=== PATIENT | male | born 1945 | race Caucasian/White ===

== ENCOUNTER → 2018-01-30 09:44 | Outpatient (CLI) | payer MEDICARE, OTHER, SELFPAY ==
[2018-01-30 12:25] LABS: Absolute Lymphocyte Count 1.18 X10^3/ul (0.83-4.51); Absolute Neutrophil Count 2.6 X10^3/uL (2.0-7.7); Eosinophil# 0.05 X10^3/uL; Eosinophils% 1.2 % (0-5); Hematocrit 40.6 % (40-54); Lymphocyte # 1.18 X10^3/ul (4.0); Lymphocyte % 27.9 % (19-41); Mean Corp Hgb Conc 34.5 g/gl (32-36); Mean Corpuscular Hgb 32.6 pg (27.0-32.0); Mean Corpuscular Volume 94.4 fL (80-94); Mean Platelet Vol. 9.8 fl (6.2-12.0); Monocyte# 0.42 X10^3/uL; Monocyte% 9.9 % (0-10); Neutrophil # 2.57 X10^3/uL (2.7-7.7); Neutrophil % 60.8 % (47-70); Platelet Count 179 K/mm3 (150-450); RBC Distribution Width SD 40.4 fl (35.1-43.9); White Blood Count 4.2 K/mm3 (4.4-11.0)
[2018-01-30 12:38] LABS: POSITIVE COUNT NO; POSITIVE DIFFERENTIAL NO; POSITIVE MORPHOLOGY NO
[2018-01-30 12:55] LABS: ALB/GLOB Ratio 1.1 RATIO (0.9-2.4); AST(SGOT) 26 U/L (15-37); Alanine Aminotransfer ALT/SGPT 46 U/L (16-61); Albumin, Serum 3.8 g/dL (3.2-5.0); Alkaline Phosphatase 52 U/L (45-117); Anion Gap 7 (5-15); BUN 22 mg/dL (7-18); BUN/Creat Ratio 22.2 RATIO (10-20); Calcium,Total 8.5 mg/dL (8.5-10.1); Chloride 104 mmol/L (98-107); Creatinine, Serum 0.99 mg/dL (0.70-1.30); EST Glomerular Filtration Rate 79 mL/min (>60); Est Glom Filt Rate - Afr Amer 96 mL/min (>60); Globulin 3.5 g/dL (2.2-4.2); Glucose 189 mg/dL (74-106); Potassium 3.8 mmol/L (3.5-5.1); Protein, Total 7.3 g/dL (6.4-8.2); Sodium Level 138 mmol/L (136-145); Thyroid Stim Hormone (TSH) 1.98 uIU/mL (0.358-3.74)
== END ==
PROVIDERS: PCP Family Medicine; Visit Provider Family Medicine
DX: E11.65 Type 2 diabetes mellitus with hyperglycemia (principal); E78.5 Hyperlipidemia, unspecified
CPT/HCPCS: 36415; 80053; 84443; 85025

== ENCOUNTER → 2019-02-12 11:19 | Outpatient (CLI) | payer MEDICARE, OTHER, SELFPAY ==
[2019-02-12 15:59] LABS: Absolute Lymphocyte Count 1.23 X10^3/uL (0.83-4.51); Absolute Neutrophil Count 2.7 X10^3/uL (2.0-7.7); Basophil# 0.01 X10^3/uL; Basophil% 0.2 % (0-1); Eosinophil# 0.04 X10^3/uL; Eosinophils% 0.9 % (0-5); Hematocrit 42.5 % (40-54); Lymphocyte # 1.23 X10^3/ul (4.0); Lymphocyte % 27.5 % (19-41); Mean Corp Hgb Conc 32.9 g/dL (32-36); Mean Corpuscular Hgb 31.9 pg (27.0-32.0); Mean Corpuscular Volume 96.8 fL (80-94); Mean Platelet Vol. 9.9 fl (6.2-12.0); Monocyte# 0.43 X10^3/uL; Monocyte% 9.6 % (0-10); NRBC Flagged by Analyzer 0 % (0-5); Neutrophil # 2.74 X10^3/uL (2.7-7.7); Neutrophil % 61.4 % (47-70); Platelet Count 187 K/mm3 (150-450); RBC Distribution Width CV 12.1 % (11.6-14.6); Red Blood Count 4.39 M/mm3 (4.6-6.2); White Blood Count 4.5 K/mm3 (4.4-11.0)
[2019-02-12 16:24] LABS: ALB/GLOB Ratio 1.2 RATIO (0.9-2.4); AST(SGOT) 30 U/L (15-37); Alanine Aminotransfer ALT/SGPT 53 U/L (16-61); Alkaline Phosphatase 45 U/L (45-117); Anion Gap 12 (5-15); BUN 24 mg/dL (7-18); Calcium,Total 8.9 mg/dL (8.5-10.1); Chloride 104 mmol/L (98-107); EST Glomerular Filtration Rate 78 mL/min (>60); Est Glom Filt Rate - Afr Amer 95 mL/min (>60); Globulin 3.2 g/dL (2.2-4.2); Glucose 111 mg/dL (74-106); Potassium 4.2 mmol/L (3.5-5.1); Protein, Total 7.2 g/dL (6.4-8.2); Sodium Level 141 mmol/L (136-145); Thyroid Stim Hormone (TSH) 1.66 uIU/mL (0.358-3.74)
== END ==
PROVIDERS: Family Provider Family Medicine; PCP Family Medicine; Visit Provider Family Medicine
DX: E11.9 Type 2 diabetes mellitus without complications (principal); I10 Essential (primary) hypertension; E78.5 Hyperlipidemia, unspecified
CPT/HCPCS: 36415; 80053; 84443; 85025

== ENCOUNTER 2019-04-07 13:00 | Observation (INO) | payer MEDICARE, OTHER, SELFPAY ==
[2019-04-07] VITALS (13 sets, daily range): BP systolic 92–120; BP diastolic 60–100; PULSE 56–169; RESP 12–160; TEMP 35.7–37.1; O2SAT 93–100; BMI 33.3; BMI 33.4; BMI 34.4
--- NOTE | 2019-04-07 13:24 | EKG12_ITS ---
Test Reason : REPEAT Blood Pressure : / mmHG Vent. Rate : 071 BPM Atrial Rate : 071 BPM P-R Int : 210 ms QRS Dur : 104 ms QT Int : 400 ms P-R-T Axes : 034 -24 031 degrees QTc Int : 434 ms Sinus rhythm with 1st degree A-V block Incomplete right bundle branch block Borderline ECG Confirmed by ALICIA HINES, DANIEL ([id number]), city editor SATINDER SHAH ([id number]) on 04/09/2019 1:43:16 PM Referred By: Margot Rasmussen Confirmed By:CARLOS VARGAS MD
--- NOTE | 2019-04-07 13:27 | ECHOD_ITS ---
Reason For Study: Arrhythmia Procedure This was a 2D Doppler, Color Flow transthoracic echocardiogram. Exam performed portable in ED. Left Ventricle Mild concentric left ventricular hypertrophy. The estimated ejection fraction is 75 %. No regional wall motion abnormalities noted. Right Ventricle Normal size and thickness. Normal systolic function. Atria The left atrium is severely enlarged. Normal right atrium. Normal atrial septum. Mitral Valve The mitral valve is structurally normal. No prolapse or stenosis seen. Tricuspid Valve Trivial tricuspid valve insufficiency. Right ventricular systolic pressure estimated to be 26 mmHg. Aortic Valve Normal aortic valve. Trisinus/trileaflet aortic valve. Pulmonic Valve Normal pulmonic valve. Great Vessels Normal aortic root. Normal arch. Normal inferior vena cava. Inferior vena cava collapse with sniff. Pericardium/Pleural No pericardial effusion. MMode/2D Measurements & Calculations LVIDd: 2.8 cm IVSd: 1.4 cm Ao root diam: 3.9 cm LVIDs: 1.5 cm LVPWd: 1.4 cm RVDd: 2.8 cm FS: 45.9 % LAV(MOD-bp): 76.5 ml LA A4 area: 26.6 cm2 LA dimension(2D): 4.0 cm LAV(MOD-bp) Indexed: 31.5 ml/m2 LAV(MOD-sp2): 68.3 ml LAV(MOD-sp4): 84.5 ml RA A4 area: 17.2 cm2 Doppler Measurements & Calculations MV E max jeff: 87.8 cm/sec Ao V2 max: 180.4 cm/sec LV V1 max: 120.5 cm/sec Ao max P.0 mmHg LV V1 max P.8 mmHg PA V2 max: 114.0 cm/sec TR max jeff: 228.7 cm/sec TR max P.9 mmHg Interpretation Summary Mild concentric left ventricular hypertrophy. The estimated ejection fraction is 75 %. The left atrium is severely enlarged. Trivial tricuspid valve insufficiency. Right ventricular systolic pressure estimated to be 26 mmHg. Pt appears to have a baseline 31 mm Hg LVOT gradient at rest which worsens to 38 mm Hg with Valsalve. Pt appears to be in atrial fibrillation. Results called to Dr Melgar at 1440. There is no comparison study available. Ordering Physician: Thai Moore Referring Physician: Bob Bolton Performed By: Adriane Farley RDCS
[2019-04-07] MEDS: Aspirin 81 MG TAB.CHEW 324 MG PO (13:28)
--- NOTE | 2019-04-07 13:33 | RAD_ITS ---
STUDY: X-RAY CHEST REASON FOR EXAM: Male, 74 years old. Chest pain. TECHNIQUE: Single AP portable view of the chest. COMPARISON: Comparison is made with prior study dated January 23, 2013. FINDINGS: EKG electrodes are seen. Mild increased markings at the left lung base suggestive of linear atelectasis and/or scarring. There is no demonstrated pleural abnormality. There is borderline cardiomegaly. Normal mediastinum and renuka. Normal visualized pulmonary arteries. There is atherosclerotic tortuosity of the aortic arch and descending thoracic aorta. There are diffuse degenerative changes of the visualized thoracic spine. Healed bilateral rib fractures more prominent on the left side. There is no demonstrated abnormality of the visualized soft tissue structures of the upper abdomen. RAD/Chest 1 View (Portable) IMPRESSION: Mild degree of increased markings at the left lung base suggestive linear atelectasis and/or scarring. Electronically Signed: Momo Ramirez, at 14:06 EDT , Service support ,
[2019-04-07 13:44] LABS: Absolute Lymphocyte Count 0.93 X10^3/uL (0.83-4.51); Absolute Neutrophil Count 5.3 X10^3/uL (2.0-7.7); Basophil# 0.01 X10^3/uL; Basophil% 0.1 % (0-1); Eosinophil# 0.03 X10^3/uL; Eosinophils% 0.4 % (0-5); Hematocrit 42.3 % (40-54); Hemoglobin 14.3 g/dL (13.0-16.5); Lymphocyte # 0.93 X10^3/ul (4.0); Lymphocyte % 13.7 % (19-41); Mean Corp Hgb Conc 33.8 g/dL (32-36); Mean Corpuscular Hgb 32.6 pg (27.0-32.0); Mean Corpuscular Volume 96.6 fL (80-94); Mean Platelet Vol. 8.9 fl (6.2-12.0); Monocyte# 0.57 X10^3/uL; Monocyte% 8.4 % (0-10); NRBC Flagged by Analyzer 0 % (0-5); Neutrophil # 5.25 X10^3/uL (2.7-7.7); Neutrophil % 77.1 % (47-70); Platelet Count 175 K/mm3 (150-450); RBC Distribution Width CV 11.9 % (11.6-14.6); RBC Distribution Width SD 42.3 fl (35.1-43.9); Red Blood Count 4.38 M/mm3 (4.6-6.2); White Blood Count 6.8 K/mm3 (4.4-11.0)
[2019-04-07 13:52] LABS: International Normalized Ratio 1.8; Prothrombin Time (Protime)PT. 20.3 SECONDS (11.7-14.9)
[2019-04-07 14:01] LABS: Anion Gap 7 (5-15); BUN 27 mg/dL (7-18); BUN/Creat Ratio 21.8 RATIO (10-20); Calcium,Total 8.7 mg/dL (8.5-10.1); Chloride 104 mmol/L (98-107); Creatinine, Serum 1.24 mg/dL (0.70-1.30); EST Glomerular Filtration Rate 61 mL/min (>60); Est Glom Filt Rate - Afr Amer 74 mL/min (>60); Estimated Creatinine Clearance 62.61 ml/min; Glucose 219 mg/dL (74-106); Potassium 4.2 mmol/L (3.5-5.1); Sodium Level 138 mmol/L (136-145)
[2019-04-07] MEDS: 0.9% Normal Saline 1,000 ML 150 ML IV (14:25)
[2019-04-07] MEDS: dilTIAZem 25 MG/5 ML Vial 10 MG IV BOLUS (14:26)
--- NOTE | 2019-04-07 14:37 | NURSING ---
Pt BP 78/68 P: 160. Placed in Trendelenburg, fluids started per order. Cardizem 5 mg given. Held the other [address] Rasmussen. Converted to sinus rhythm BP: 104/66 P: 78 SpO2: 97% on 2 L of oxygen.
--- NOTE | 2019-04-07 14:40 | EKG12_ITS ---
Test Reason : CP Blood Pressure : / mmHG Vent. Rate : 163 BPM Atrial Rate : 078 BPM P-R Int : 000 ms QRS Dur : 110 ms QT Int : 294 ms P-R-T Axes : 000 -36 056 degrees QTc Int : 484 ms Supraventricular tachycardia Left axis deviation Incomplete right bundle branch block Abnormal ECG Confirmed by ALICIA HINES, DANIEL ([id number]), manager editorial SATINDER SHAH ([id number]) on 04/09/2019 1:43:42 PM Referred By: Margot Rasmussen Confirmed By:CARLOS VARGAS MD
--- NOTE | 2019-04-07 14:45 | HP.PCM_ITS ---
Problem List (1) Atrial flutter with rapid ventricular response Status: Acute (2) Chest pain Status: Acute Qualifiers: Chest pain type: unspecified Qualified Code(s): R07.9 - Chest pain, unspecified (3) Hyperlipidemia Status: Chronic Qualifiers: Hyperlipidemia type: unspecified Qualified Code(s): E78.5 - Hyperlipidemia, unspecified (4) Diabetes mellitus, type II Status: Chronic Qualifiers: Diabetes mellitus penitentiary insulin use: without penitentiary use Diabetes mellitus complication status: with other specified complication Qualified Code(s): E11.69 - Type 2 diabetes mellitus with other specified complication (5) Obesity (BMI 30.0-34.9) Status: Chronic (6) History of DVT (deep vein thrombosis) Status: Chronic History of Present Illness Date of Admission: 04/07/19 Chief Complaint: Chest pain, lightheadedness, dizziness The patient is a 74 y/o M w/ PMHx: Obesity, Diabetes mellitus type II, HLD, 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 Borderline ASHA who presents to the [facility] ED on 04/07/19 with history of onset substernal chest pressure without radiation, described as 5 out of 10 initially in severity with associated mild dyspnea headedness and dizziness as well as nausea without emesis without any radiation while working on his lawn, approximately 3 hours prior to ED presentation with improvement upon ED evaluation 2-3 out of 10. Upon ED presentation patient with notable tachycardia suspected to be proximal atrial flutter with rate of 160. In the ED patient administered Cardizem 5 mg with initial intention for 10 mg IV x1 however following 5 mg administration patient spontaneously converted. In the ED work-up included T 96.2, heart rate initially 169 with improvement to 66 following some spontaneous conversion, BP 100/60 although he transiently did drop to systolic of 70s while in atrial flutter, currently 104/66, respiratory rate 18, 100% on room air, CBC with WBC 6.8, hemoglobin 14.3, platelet 175 without market shift, INR 1.8, BMP before glucose 219, troponin 0.024, chest x- ray with mild degree of increased markings left lung base suggestive of atelectasis versus scarring, echocardiogram with mild concentric LVH, EF 75%, severely enlarged LA, trivial TBI, RVSP 26 mmHg, baseline 31 mmHg L thought gradient at rest, worsening to 38 mmHg with Valsalva, rhythm atrial fibrillation at that time. In the ED patient ministered aspirin 324 mill grams p.o. x1, normal saline as well as 5 mg IV bolus of Cardizem x1. 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 Psychiatric History: No pertinent psych hx Lives: Alone Smoking Status: Never smoker Tobacco Use: Non-smoker Alcohol: Occasional Drugs: None - *Family History Maternal History Items: Heart Disease Paternal History Items: Heart Disease Review of Systems Constitutional: Reports: Malaise, Weakness, Fatigue. Denies: Chills, Fever, Weight Change HEENT: Denies: Head Aches, Sinus Congestion, Sinus Drainage Cardiovascular: Reports: Chest Pain, Chest Pressure, Light Headedness. Denies: Chest Tightness, Orthopnea, Palpitations, Syncope Respiratory: Denies: Cough, Shortness of breath at rest, Sputum production Gastrointestinal: Reports: Nausea, Vomiting. Denies: Abdominal Pain Genitourinary: Denies: Dysuria Musculoskeletal: Reports: Joint Pain. Denies: Joint Tenderness Skin: Denies: Rash, Wounds Neurological: Denies: Numbness, Tingling, Focal weakness Psychiatric: Denies: Anxiety, Depression, Homicidal Ideations, Suicidal Ideations Hematologic/ Lymphatic: Reports: Easy Bruising, Easy Bleeding VTE Information - Inpt Only VTE Present on Admission: No VTE Mechan Device Prophylaxis: SCD's VTE Pharm Prophylaxis ordered?: Yes Patient Problems: Active and Suspected Problems Atrial flutter with rapid ventricular response (Acute) Chest pain (Acute) Subjective: Initially upon evaluation in Trendelenburg secondary to hypotension, clinically improved with during examination spontaneous conversion to sinus rhythm. Objective: Physical Examination: General: awake, alert, oriented x 3 and cooperative, laying in the ED bed, notes chest discomfort has lessened to 2-3 out of 10. Skin: normal color, turgor, no icterus, cyanosis. HEENT: AT/NC, EOMI, PERRLA, MMM, no carotid bruits or JVD noted. Lungs: CTA bilaterally, moderate effort, mild decrease BL bases, no rales, ronc hi or wheezing. Heart: Clinically spontaneously converted, currently regular rate and rhythm; no gallop, rub audible. Abdomen: soft, obese, NTTP, ND, normal BS, no HSM. Extremities: no cyanosis, clubbing, or edema. Neurological: patient awake, alert, oriented x 3; cognitive function intact; pupils equally reactive to light and accomodation; cranial nerves II-XII grossly normal, moving all 4 extremities, no focal deficits, strength moderately to severely global decrease secondary to acute presentation and complaints, but improving given conversion. Psychiatric: affect appears fatigued, no acute evidence of depressive or anxiety feelings. - Physical Exam Vital Signs Temp Pulse Resp BP Pulse Ox 96.2 F L 66 30 H 104/66 93 04/07/19 13:01 04/07/19 14:32 04/07/19 14:32 04/07/19 14:32 04/07/19 14:32 Oxygen Flow Rate (L/min) 2 Oxygen Delivery Method Nasal Cannula Weight: 260 lb Body Mass Index (BMI) 33.3 Laboratory Tests Past 24 Hrs 04/07/19 04/07/19 04/07/19 13:36 13:36 13:36 WBC 6.8 RBC 4.38 L Hgb 14.3 Hct 42.3 MCV 96.6 H MCH 32.6 H MCHC 33.8 RDW Std Deviation 42.3 RDW Coeff of Aditya 11.9 Plt Count 175 MPV 8.9 Immature Gran % (Auto) 0.300 Neut % (Auto) 77.1 H Lymph % (Auto) 13.7 L [place] % (Auto) 8.4 Eos % (Auto) 0.4 Baso % (Auto) 0.1 Absolute Neuts (auto) 5.3 Absolute Lymphs (auto) 0.93 Nucleated RBC % 0 PT 20.3 H INR 1.8 Sodium 138 Potassium 4.2 Chloride 104 Carbon Dioxide 27.0 Anion Gap 7 BUN 27 H Creatinine 1.24 Estim Creat Clear Calc 62.61 Est GFR (MDRD) Af Amer 74 Est GFR (MDRD) Non-Af 61 BUN/Creatinine Ratio 21.8 H Glucose 219 H Calcium 8.7 Troponin I 0.024 Assessment/Plan All Active Problems Atrial flutter with rapid ventricular response (Acute) Chest pain (Acute) The patient is a 74 y/o M w/ PMHx: Obesity, Diabetes mellitus type II, HLD, 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 Borderline ASHA who presents to the [facility] ED on 04/07/19 with history of onset substernal chest pressure without radiation, described as 5 out of 10 initially in severity with associated mild dyspnea headedness and dizziness as well as nausea without emesis without any radiation while working on his lawn, approximately 3 hours prior to ED presentation with improvement upon ED evaluation 2-3 out of 10. 1. New onset, Paroxsymal atrial flutter: EKG in ED w/ atrial flutter w/ RVR. Patient administered Cardizem 5 mg IV x1 in ED spontaneous conversion. Will admit to PCU, maintain on telemetry, obtain cardiac enzyme serial set, obtain magnesium level, echo already obtained with mild concentric LVH, EF 75%, severely enlarged LA, trivial TBI, RVSP 26 mmHg, baseline 31 mmHg L thought gradient at rest, worsening to 38 mmHg with Valsalva, rhythm atrial fibrillation at that time, obtain TSH level. We will increase regimen dosing to achieve therapeutic INR. Will continue on cardizem oral regimen per discussion with Dr. Mendez. As noted we will plan to pursue walking stress echocardiogram in a.m. Upon discharge will refer to Dr. Mendez for follow-up. 2. Chest Pain: ED w troponin 0.024, chest x-ray with mild degree of increased markings left lung base suggestive of atelectasis versus scarring, echocardiogram with mild concentric LVH, EF 75%, severely enlarged LA, trivial TBI, RVSP 26 mmHg, baseline 31 mmHg L thought gradient at rest, worsening to 38 mmHg with Valsalva, rhythm atrial fibrillation at that time. Will place on a monitored bed to assure no acute myocardial infarction with serial cardiac enzymes and EKGs. Per discussion with Dr. Mendez will pursue a.m. walking stress echocardiogram. ASA, NG, morphine. 3. Diabetes mellitus type II: Hold oral home regimen, ADA diet, accu checks w/ ISS, nutrition consulted for education and teaching. 4. Obesity: Weight loss and lifestyle changes encouraged, nutrition consulted. 5. History DVT: Noted history of DVT x3 on chronic Coumadin therapy, admission INR 1.8, subtherapeutic, will give increased dose now and increase to 4 mg daily regimen especially given acute presentation. 6. Hyperlipidemia: Continue home statin regimen. AM FLP. 7. DVT prophylaxis: SCDs, Coumadin with INR trending as noted. Code Visit OBSV E&M: 15119 Initial observation care L3
--- NOTE | 2019-04-07 14:51 | ED.VISSUMM ---
- ER Visit Summary Date of Service: 04/07/19 Chief Complaint: [Chest pain] History of Present Illness: The patient is a 74 M [presents to the emergency department chest pain that started while he was working in the yard. Patient states symptoms started about 2 hours ago. Patient describes a pressure in the center of his chest. Patient rates the pain currently as a 5 out of 10. He denies any nausea or vomiting or diaphoresis. He denies any shortness of breath. Patient has history of hypercholesterolemia as well as history of DVT and is currently on Coumadin. She denies recent travel or surgery. Patient has not had any history of cardiac dysrhythmias. Patient is never had a heart attack. Patient states his last heart catheterization was about 6 or 7 years ago and it was negative.] Physical Examination: [HEENT-PERRLA, EOMI. Cranial nerves II through XII grossly intact. TMs clear. Mucous membranes moist. No adenopathy. Cardiovascular-regular and tachycardic with heart rate in the 160s. No murmurs auscultated. Lungs-clear to auscultation, chest wall stable without crepitus or subcu emphysema Abdomen-normoactive bowel sounds, soft, nontender, no rebound or rigidity, no peritoneal signs. Extremities-intact ?4, normal range of motion, normal pulses, atraumatic] Test Results: [EKG obtained showed a supraventricular tachycardia with a ventricular rate of 163 bpm which I suspect is likely a flutter. Patient had nonspecific ST changes noted. CBC with differential 6.8, hemoglobin 14, hematocrit 42, platelets 175. Chemistries unremarkable. Troponin was 0.024. INR was 1.8. Chest x-ray showed linear atelectasis in the bases otherwise nothing acute. 2D echo obtained showed left atrial enlargement and a hyperdynamic heart with an ejection fraction of 75%.] Emergency Department Course and Treatment: [Initially patient was given aspirin. I discussed case with Dr. Mendez who is on for cardiology. He recommended the echo and 10 mg of Cardizem IV. Upon patient received 5 mg of Cardizem he converted back to normal sinus rhythm. Since chest discomfort seemed to improve with that conversion back to sinus.] Treatment Plan: [Admit] Disposition: [Admit] Impression: [Chest pain Atrial fibrillation with rapid ventricular response] This note was generated with Dragon dictation software. It may contain incorrect words, spelling, and punctuation that were not noted in review of the chart prior to signing ED Disposition - Plan for ED Patient: Referrals: Bob Bolton MD [Primary Care Provider] -
--- NOTE | 2019-04-07 14:55 | NURSING ---
PCU OBS WHITE CP, AFIB RVR
--- NOTE | 2019-04-07 15:18 | EKG12_ITS ---
Test Reason : Blood Pressure : / mmHG Vent. Rate : 062 BPM Atrial Rate : 062 BPM P-R Int : 204 ms QRS Dur : 114 ms QT Int : 418 ms P-R-T Axes : 024 -32 010 degrees QTc Int : 424 ms Normal sinus rhythm Left axis deviation Incomplete right bundle branch block Abnormal ECG Confirmed by JONO HINES, THOR ([id number]), online content editor JACOB STATON ([id number]) on 04/09/2019 2:22:59 PM Referred By: Margot Rasmussen Confirmed By:THOR DE LA CRUZ MD
[2019-04-07 15:36] LABS: Magnesium 1.8 mg/dL (1.6-2.6)
[2019-04-07 17:51] LABS: Bedside Glucose 121 mg/dL (70-110)
[2019-04-07] MEDS: Insulin Lispro 100 UNIT/ML INSULN.PEN SC (21:29)
[2019-04-07] MEDS: Atorvastatin Calcium 20 MG Tablet PO (21:30)
[2019-04-07] MEDS: Famotidine 20 MG Tablet PO (21:30)
[2019-04-07 21:50] LABS: Bedside Glucose 150 mg/dL (70-110)
[2019-04-07] MEDS: 0.9% Normal Saline 1,000 ML 100 ML IV (22:53)
[2019-04-08] VITALS (7 sets, daily range): BP systolic 105–124; BP diastolic 63–72; PULSE 46–73; RESP 16–18; TEMP 36.5–36.8; O2SAT 95–97
--- NOTE | 2019-04-08 03:21 | PCM.PN.BLA ---
Progress Note Patient noted to have steadily rising troponin. Discussed with Dr. Mendez. Recommend to get treadmill stress echo previously ordered.
[2019-04-08 05:12] LABS: Absolute Lymphocyte Count 1.75 X10^3/uL (0.83-4.51); Basophil# 0.01 X10^3/uL; Basophil% 0.2 % (0-1); Eosinophil# 0.07 X10^3/uL; Eosinophils% 1.3 % (0-5); Hematocrit 37.5 % (40-54); Hemoglobin 12.7 g/dL (13.0-16.5); Lymphocyte # 1.75 X10^3/ul (4.0); Lymphocyte % 32.1 % (19-41); Mean Corp Hgb Conc 33.9 g/dL (32-36); Mean Corpuscular Hgb 32.5 pg (27.0-32.0); Mean Corpuscular Volume 95.9 fL (80-94); Mean Platelet Vol. 8.9 fl (6.2-12.0); Monocyte# 0.58 X10^3/uL; Monocyte% 10.6 % (0-10); NRBC Flagged by Analyzer 0 % (0-5); Neutrophil # 3.02 X10^3/uL (2.7-7.7); Neutrophil % 55.4 % (47-70); Platelet Count 162 K/mm3 (150-450); RBC Distribution Width CV 12.1 % (11.6-14.6); RBC Distribution Width SD 42.3 fl (35.1-43.9); Red Blood Count 3.91 M/mm3 (4.6-6.2); White Blood Count 5.5 K/mm3 (4.4-11.0)
[2019-04-08 05:32] LABS: Anion Gap 7 (5-15); BUN 20 mg/dL (7-18); Calcium,Total 7.8 mg/dL (8.5-10.1); Chloride 110 mmol/L (98-107); Cholesterol 114 mg/dL (200); EST Glomerular Filtration Rate 101 mL/min (>60); Est Glom Filt Rate - Afr Amer 122 mL/min (>60); Estimated Creatinine Clearance 97.04 ml/min; Glucose 124 mg/dL (74-106); High Density Lipoprotein 34 mg/dL; Potassium 3.9 mmol/L (3.5-5.1); Sodium Level 142 mmol/L (136-145); Triglycerides 70 mg/dL; Very Low Density Lipoprotein 14 mg/dL (5-40)
[2019-04-08 05:34] LABS: Prothrombin Time (Protime)PT. 22.9 SECONDS (11.7-14.9)
--- NOTE | 2019-04-08 05:55 | EKG12_ITS ---
Test Reason : AM EKG Blood Pressure : / mmHG Vent. Rate : 052 BPM Atrial Rate : 052 BPM P-R Int : 212 ms QRS Dur : 108 ms QT Int : 472 ms P-R-T Axes : 041 -30 051 degrees QTc Int : 438 ms Sinus bradycardia with 1st degree A-V block Left axis deviation Abnormal ECG Confirmed by JONO HINES, THOR ([id number]), supervising film or videotape editor JACOB STATON ([id number]) on 04/09/2019 2:22:39 PM Referred By: Margot Rasmussen Confirmed By:THOR DE LA CRUZ MD
--- NOTE | 2019-04-08 05:55 | STEWCON_ITS ---
Reason For Study: Atrial Fibrillation Chest Pain Stress Results Protocol: Lizandro Protocol Maximum Predicted HR: 148 bpm Target HR: 126 bpm % Maximum Predicted HR: 92 % DurationHeart Rate Stage (mm:ss) (bpm) BP Comment Baseline 65 130/72No Chest Pain; Diluted Definity 2 ML Given Lizandro Protocol Stage I 3:00 88 132/74No Chest Pain Lizandro Protocol Stage II 3:00 109 150/68No Chest Pain; Mild Dyspnea Lizandro Protocol Stage III 2:30 136 164/72No Chest Pain; Moderate Dyspnea Recovery 80 138/64No Chest Pain Stress Duration: 8:30 mm:ss Maximum Stress HR: 136 bpm METS: 10 Baseline Echocardiogram Findings The estimated ejection fraction is 65 %. Stress Echo Wall motion Data Resting WM Intermediate WM Stress WM Resting Wall Motion Wall Motion Stress No regional wall motion No regional wall motion abnormalities noted. abnormalities noted. EKG Data The baseline ECG displays normal sinus rhythm. The patient exercised according to the regular Lizandro protocol for a total duration of 8:30. The maximum heart rate attained was 137 beats per minute. This was 92% of maximum predicted heart rate. The patient exercised into stage 3 of the Lizandro protocol. During stress, there were no ST or T wave changes noted to suggest ischemia. No clinical angina was noted. Interpretation Summary The estimated ejection fraction is 65 %. Normal, adequate, treadmill echocardiogram. Negative for ischemia by EKG and echocardiographic criteria. No anginal symptoms noted. Rare PVCs noted. Appropriate blood pressure response to exercise. Average exercise capacity for age. Final LVEF is 75%. Test terminated due to leg discomfort. Decreased sensitivity due to poor echo windows requiring Definity agent. No complications. Normal, adequate, treadmill echocardiogram. The study was technically difficult. Contrast injection was performed. Ordering Physician: Margot Rasmussen Referring Physician: Heladio Mendez Performed By: Hermila Claudio, SUZETTE, RVT
[2019-04-08] MEDS: Aspirin 81 MG TAB.CHEW PO (06:18)
[2019-04-08 06:35] LABS: Bedside Glucose 137 mg/dL (70-110)
--- NOTE | 2019-04-08 09:09 | CON.PCM_ITS ---
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 He reportedly had a catheterization 6 years ago in [place], and reportedly had nonobstructive coronary disease. He did not require stents or bypass surgery. He is maintained on simvastatin since that time. Patient was in normal health up until yesterday [place], and developed palpitations, shortness of breath, and midsternal chest pain and a generalized feeling of unwellness. Patient sat down to recuperates, and when it did not improve he came to [facility] ER. In the emergency room he was found to be in atrial flutter with 2-1 conduction at a rate of around 160 bpm. A stat echocardiogram was obtained in the ER which showed a hyperdynamic LV function with an EF around 75% and mild left atrial enlargement. IV Cardizem was ordered, and as it was infusing he converted back to normal sinus rhythm and has remained in that since that time. His baseline EKG after SVT showed normal sinus rhythm, no acute changes, no previous myocardial infarction. Patient's initial troponin was negative but then increased to 1.0. As he had had no previous chest pain or angina prior to his SVT, we proceeded with a treadmill stress echocardiogram which was negative for inducible ischemia at a decent workload. His blood pressure response to exercise was normal. Patient has never had a CVA or TIA in the past. [] Past Medical History Allergies/Adverse Reactions: Allergies No Known Allergies Allergy (Verified 04/07/19 13:05) Home Medications: Ambulatory Orders Medication Instructions Recorded Aspirin 1 tab PO DAILY 04/07/19 Glimepiride 4 mg PO BID 04/07/19 Metformin HCl 1,000 mg PO BID 04/07/19 Multivit-Min/FA/Lycopen/Lutein 0.5 tab PO BID 04/07/19 [Centrum Silver Men Tablet] Ranitidine HCl 150 mg PO BID 04/07/19 Simvastatin 40 mg PO DAILY 04/07/19 Warfarin Sodium 3 mg PO DAILY 04/07/19 Past Medical History (Chronic Problems): Chronic Problems Hyperlipidemia (Chronic) Diabetes mellitus, type II (Chronic) Obesity (BMI 30.0-34.9) (Chronic) Low back pain (Chronic) 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 Psychiatric History: No pertinent psych hx - *Family History Maternal History Items: Heart Disease Paternal History Items: Heart Disease Lives: Alone Smoking Status: Former smoker Tobacco Use: Non-smoker Alcohol: Occasional Drugs: None Review of Systems - Review of Systems General: Denies: Fever, Night Sweats, Fatigue Cardiovascular: Denies: Chest Discomfort, Shortness of Breath, Orthopnea, PND, Peripheral Edema, Palpitations, Lightheadedness, Dizziness, Near Syncope, Syncope Respiratory: Denies: Cough, Sputum Production, Hemoptysis Gastrointestinal: Denies: Hematemesis, Hematochezia, Melena Genitourinary: Denies: Dysuria, Hematuria Skin: Denies: Rash Subjectve: Patient laying in bed, no acute distress. Objective: Vital Signs Temp Pulse Resp BP Pulse Ox 97.7 F L 54 L 16 105/63 95 04/08/19 03:15 04/08/19 07:17 04/08/19 03:15 04/08/19 03:15 04/08/19 07:42 Oxygen Flow Rate (L/min) 2 Oxygen Delivery Method Room Air Weight: 269 lb Body Mass Index (BMI) 34.4 Intake and Output for Last 24 Hours 04/06/19 04/07/19 04/08/19 23:59 23:59 23:59 Intake Total 1730.0 / 1730.0 922.33 / 922.33 Balance 1730.0 / 1730.0 922.33 / 922.33 General: Awake, Alert, Oriented x 3 HEENT: PERRL, EOMI, Sclera Non Icteric Neck: Supple, Good ROM, No Lymph Node Enlargement Lungs: Clear to auscultation Cardiovascular: Regular Rhythm, Normal S1, Normal S2, No Murmurs, No Rubs, No Gallops Vascular: No Carotid Bruits, Normal Femoral Pulses, Normal Radial Pulses, Normal Dorsalis Pedal Pulse, Normal Posterior Tibial Pulses Abdomen: Bowel Sounds Present, Soft, Non Tender, No HSM, No Organomegaly Extremities: No Cyanosis, No Clubbing, No edema Neurological: No Focal Motor or Sensory Deficit 04/07/19 13:36: WBC 6.8, RBC 4.38 L, Hgb 14.3, Hct 42.3, MCV 96.6 H, MCH 32.6 H, MCHC 33.8, Plt Count 175, MPV 8.9, Immature Gran % (Auto) 0.300, Neut % (Auto) 77.1 H, Lymph % (Auto) 13.7 L, Mclennan % (Auto) 8.4, Eos % (Auto) 0.4, Baso % (Auto) 0.1, Absolute Neuts (auto) 5.3, Nucleated RBC % 0 04/07/19 13:36: PT 20.3 H, INR 1.8 04/07/19 13:36: Sodium 138, Potassium 4.2, Chloride 104, Carbon Dioxide 27.0, Anion Gap 7, BUN 27 H, Creatinine 1.24, Est GFR (MDRD) Af Amer 74, Est GFR (MDRD) Non-Af 61, BUN/Creatinine Ratio 21.8 H, Glucose 219 H, Calcium 8.7, Troponin I 0.024 04/07/19 13:36: Magnesium 1.8 04/07/19 17:08: Troponin I 0.268 H 04/07/19 20:00: Troponin I 0.755 H* 04/07/19 22:55: Troponin I 0.935 H* 04/08/19 01:50: Troponin I 1.040 H* 04/08/19 05:00: WBC 5.5, RBC 3.91 L, Hgb 12.7 L, Hct 37.5 L, MCV 95.9 H, MCH 32.5 H, MCHC 33.9, Plt Count 162, MPV 8.9, Immature Gran % (Auto) 0.400, Neut % (Auto) 55.4, Lymph % (Auto) 32.1, Mclennan % (Auto) 10.6 H, Eos % (Auto) 1.3, Baso % (Auto) 0.2, Absolute Neuts (auto) 3.0, Nucleated RBC % 0 04/08/19 05:00: Sodium 142, Potassium 3.9, Chloride 110 H, Carbon Dioxide 25.0, Anion Gap 7, BUN 20 H, Creatinine 0.80, Est GFR (MDRD) Af Amer 122, Est GFR (MDRD) Non-Af 101, BUN/Creatinine Ratio 25.0 H, Glucose 124 H, Calcium 7.8 L, Triglycerides 70, Cholesterol 114, LDL Cholesterol 66, VLDL Cholesterol 14, HDL Cholesterol 34 L 04/08/19 05:00: PT 22.9 H, INR 2.0 04/08/19 05:00: Troponin I 0.778 H* Rhythm: EKG: ECHO: Stress Test: Cardiac Cath: PCI: CT Surgery: Holter monitor: EPS: PPM: CXR: Chest CT Scan: Assessment/Plan 1. SVT: The patient presents with new onset SVT superimposed on chronic Coumadin therapy for DVT. He reverted back to normal sinus rhythm at the beginning dose of IV Cardizem and is maintained that since then. His stress echocardiogram is negative for inducible ischemia. His echocardiogram shows hyper dynamic LV function with an EF around 75%. At this point I do not believe he requires repeat catheterization at this time. I would however recommend continuing Coumadin therapy for both his previous DVT and now supraventricular tachycardia/atrial fibrillation. Would also maintain continuing baby aspirin given his diabetes, and his small troponin release. I do not believe he requires dual antiplatelet therapy at this time. I would however recommend continuing Cardizem CD 120 mill grams p.o. daily and attempt to maintain his heart rate and rhythm. Should the patient have recurrent SVT, he may require additional antiarrhythmic therapy. 2. Hyperlipidemia: Recommend obtaining a fasting lipid profile as part of his cardiac risk stratification. He is currently on simvastatin. His LDL should be less than 70 given his diabetes status. 3. The patient may be discharged home and follow-up with Dr. Mendez going forward. Thank you very much for the opportunity to participate in the cardiac care of your patient. Consultation time took place between 845 and 9:15 AM. Code Visit Inpatient E&M: 52363 Init Hosp L2
[2019-04-08] MEDS: dilTIAZem CD 120 MG Capsule PO (11:12)
[2019-04-08] MEDS: Famotidine 20 MG Tablet PO (11:12)
[2019-04-08 11:20] LABS: Bedside Glucose 163 mg/dL (70-110)
--- NOTE | 2019-04-08 11:26 | PCM.DC ---
- Discharge Diagnoses Current Active Problems: Current Active and Chronic Problems Atrial flutter with rapid ventricular response (Acute) Hyperlipidemia (Chronic) Diabetes mellitus, type II (Chronic) Obesity (BMI 30.0-34.9) (Chronic) Chest pain (Acute) You will use the following diet at home:: Calorie/Carbohydrate Controlled (specify 1200, 1400, etc) - 1800 natalie / day, Cardiac Your food should be the consistency of: Regular Your liquids should be the consistency of: Regular/Thin Discharge Activity: Return to Normal Activity Allergies/Adverse Reactions: Allergies No Known Allergies Allergy (Verified 04/07/19 13:05) Medications to take at Discharge Aspirin 1 tab PO DAILY 04/07/19 Glimepiride 4 mg PO BID 04/07/19 Metformin HCl 1,000 mg PO BID 04/07/19 Multivit-Min/FA/Lycopen/Lutein [Centrum Silver Men Tablet] 0.5 tab PO BID 04/07/19 Ranitidine HCl 150 mg PO BID 04/07/19 Simvastatin 40 mg PO DAILY 04/07/19 Warfarin Sodium 3 mg PO DAILY 04/07/19 Aspirin [Aspirin, Baby] 81 mg PO DAILYCM tab.chew 04/08/19 Diltiazem CD [Cardizem CD] 120 mg PO DAILY #30 cap 04/08/19 The following prescriptions were given: Diltiazem CD [Cardizem CD] 120 mg PO DAILY #30 cap Transmission Status: Pending to [id number] Primary Care Physician: Bob Bolton MD [Primary Care Provider] - Please follow up with your Primary Care Physician in: 1-2 weeks Test Results: Test results from this visit will be discussed in further detail at your follow-up appointment, if applicable. Please Follow Up With: Heladio Mendez MD When: as directed Proposed Discharge Date: 04/08/19
--- NOTE | 2019-04-08 14:34 | DS.PCM_ITS ---
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 The estimated ejection fraction is 75 %. The left atrium is severely enlarged. Trivial tricuspid valve insufficiency. Right ventricular systolic pressure estimated to be 26 mmHg. Pt appears to have a baseline 31 mm Hg LVOT gradient at rest which worsens to 38 mm Hg with Valsalve. Pt appears to be in atrial fibrillation. Results called to Dr Melgar at 1440. There is no comparison study available. Interpretation Summary The estimated ejection fraction is 65 %. Normal, adequate, treadmill echocardiogram. Negative for ischemia by EKG and echocardiographic criteria. No anginal symptoms noted. Rare PVCs noted. Appropriate blood pressure response to exercise. Average exercise capacity for age. Final LVEF is 75%. Test terminated due to leg discomfort. Decreased sensitivity due to poor echo windows requiring Definity agent. No complications. Normal, adequate, treadmill echocardiogram. The study was technically difficult. Contrast injection was performed. RAD/Chest 1 View (Portable) IMPRESSION: Mild degree of increased markings at the left lung base suggestive linear atelectasis and/or scarring. Consults: Cardiology - Andrea Operations: None Procedures: 2-D Echocardiogram Summary of Care Provided: Hospital Course: The patient is a 74 year old M with PMhx of Dmt2, obesity, DVT for which he is already on coumadin, who presented to the ER with c.o CP, LH, and dizziness. He was found to be in SVT with a rate up to 160. He spontaneously cardioverted after receiving cardizem. Atrial flutter was also seen. He was admitted to the PCU on tele with cardiology on consult. Troponin was cycled and did increase to a max of 1.040. Echo was obtained with results as above, notably severely enlarged left atrium. He was sent for a stress echo. This was negative for ischemia and he had no further chest pain. Cardiology did not recommend cath at this time. He remained in SR. He was prescribed Cardizem 120mg PO qd. He was discharged home in stable condition. He should follow up with cardiology as directed and with his PCP in 1-2 weeks. He will continue warfarin as he was already on this for prior DVT. This patient was seen by Servando Carrero PA-C under the supervision of Dr. Cabral. [] - Physical Exam General: Alert, Oriented x3, Cooperative HEENT: Atraumatic, PERRLA, EOMI, Normocephalic Neck: Supple, No JVD, Negative Carotid Bruits Lungs: Clear to auscultation, Normal air movement Cardiovascular: Regular rate, No murmurs Abdomen: Bowel Sounds Present, Soft, Non Tender Extremities: No edema, Capillary Refill Less than 3 Seconds Skin: No rashes, No breakdown Musculoskeletal: No Tenderness to Palpation of Joints or Extremities Neurological: Cranial nerves II-XII grossly intact Psych/Mental Status: Normal Affect, Appropriate, Alert and oriented to time, place, person, mood and affect Vital Signs Temp Pulse Resp BP Pulse Ox 98.3 F 55 L 18 124/72 H 97 04/08/19 11:51 04/08/19 11:51 04/08/19 11:51 04/08/19 11:51 04/08/19 11:51 Oxygen Flow Rate (L/min) 2 Oxygen Delivery Method Room Air Weight: 268 lb 15.988 oz Body Mass Index (BMI) 34.4 Intake and Output for Last 24 Hours 04/06/19 04/07/19 04/08/19 23:59 23:59 23:59 Intake Total 1730.0 / 1730.0 1042.33 / 1042.33 Balance 1730.0 / 1730.0 1042.33 / 1042.33 Laboratory Tests Past 24 Hrs 04/07/19 04/07/19 04/07/19 13:36 17:08 20:00 WBC RBC Hgb Hct MCV MCH MCHC RDW Std Deviation RDW Coeff of Aditya Plt Count MPV Immature Gran % (Auto) Neut % (Auto) Lymph % (Auto) Brewster % (Auto) Eos % (Auto) Baso % (Auto) Absolute Neuts (auto) Absolute Lymphs (auto) Nucleated RBC % PT INR Sodium Potassium Chloride Carbon Dioxide Anion Gap BUN Creatinine Estim Creat Clear Calc Est GFR (MDRD) Af Amer Est GFR (MDRD) Non-Af BUN/Creatinine Ratio Glucose Calcium Magnesium 1.8 Troponin I 0.268 H 0.755 H* Triglycerides Cholesterol LDL Cholesterol VLDL Cholesterol HDL Cholesterol 04/07/19 04/08/19 04/08/19 22:55 01:50 05:00 WBC 5.5 RBC 3.91 L Hgb 12.7 L Hct 37.5 L MCV 95.9 H MCH 32.5 H MCHC 33.9 RDW Std Deviation 42.3 RDW Coeff of Aditya 12.1 Plt Count 162 MPV 8.9 Immature Gran % (Auto) 0.400 Neut % (Auto) 55.4 Lymph % (Auto) 32.1 Brewster % (Auto) 10.6 H Eos % (Auto) 1.3 Baso % (Auto) 0.2 Absolute Neuts (auto) 3.0 Absolute Lymphs (auto) 1.75 Nucleated RBC % 0 PT INR Sodium Potassium Chloride Carbon Dioxide Anion Gap BUN Creatinine Estim Creat Clear Calc Est GFR (MDRD) Af Amer Est GFR (MDRD) Non-Af BUN/Creatinine Ratio Glucose Calcium Magnesium Troponin I 0.935 H* 1.040 H* Triglycerides Cholesterol LDL Cholesterol VLDL Cholesterol HDL Cholesterol 04/08/19 04/08/19 04/08/19 05:00 05:00 05:00 WBC RBC Hgb Hct MCV MCH MCHC RDW Std Deviation RDW Coeff of Aditya Plt Count MPV Immature Gran % (Auto) Neut % (Auto) Lymph % (Auto) Brewster % (Auto) Eos % (Auto) Baso % (Auto) Absolute Neuts (auto) Absolute Lymphs (auto) Nucleated RBC % PT 22.9 H INR 2.0 Sodium 142 Potassium 3.9 Chloride 110 H Carbon Dioxide 25.0 Anion Gap 7 BUN 20 H Creatinine 0.80 Estim Creat Clear Calc 97.04 Est GFR (MDRD) Af Amer 122 Est GFR (MDRD) Non-Af 101 BUN/Creatinine Ratio 25.0 H Glucose 124 H Calcium 7.8 L Magnesium Troponin I 0.778 H* Triglycerides 70 Cholesterol 114 LDL Cholesterol 66 VLDL Cholesterol 14 HDL Cholesterol 34 L POC Glucose 04/08/19 04/08/19 04/07/19 11:12 06:20 21:13 POC Glucose 163 H 137 H 150 H 04/07/19 17:38 POC Glucose 121 H Discharge Diet: Low fat/ Low Cholesterol, 1800 Calorie Control Diet Discharge Activity: Return to Normal Activity Home Medications: Medications to take at Discharge Aspirin 1 tab PO DAILY 04/07/19 Glimepiride 4 mg PO BID 04/07/19 Metformin HCl 1,000 mg PO BID 04/07/19 Multivit-Min/FA/Lycopen/Lutein [Centrum Silver Men Tablet] 0.5 tab PO BID 04/07/19 Ranitidine HCl 150 mg PO BID 04/07/19 Simvastatin 40 mg PO DAILY 04/07/19 Warfarin Sodium 3 mg PO DAILY 04/07/19 Aspirin [Aspirin, Baby] 81 mg PO DAILYCM tab.chew 04/08/19 Diltiazem CD [Cardizem CD] 120 mg PO DAILY #30 cap 04/08/19 Following Prescrptions Were Given to Patient: Diltiazem CD [Cardizem CD] 120 mg PO DAILY #30 cap Transmission Status: Received by [id number] Primary Care Physician: Bob Bolton MD [Primary Care Provider] - Please follow up with your Primary Care Physician in: 1-2 weeks Please Follow Up With: Heladio Mendez MD When: as directed Disposition: Home Minutes spent on discharge:: 35 Patient Condition:: Stable Medical Necessity - Tobacco Use Smoking Status: Former smoker Tobacco Use: Non-smoker Meaningful Use Info Meaningful Use Diagnoses (Choose all that apply): None applicable <César Cabral E - Last Filed: 04/08/19 14:49> Discharge Date and Diagnosis - Secondary Discharge Diagnosis Chronic Problems Hyperlipidemia (Chronic) Diabetes mellitus, type II (Chronic) Obesity (BMI 30.0-34.9) (Chronic) Low back pain (Chronic) 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 Patient was admitted because of chest pain associated with dizziness. He was found to have new onset A. fib with RVR/SVT as well as elevated troponin which is attributed to demand ischemia. His EKG on the ED revealed A. fib with RVR versus SVT for which she received 1 dose of IV Cardizem bolus and patient returned back to sinus rhythm and he remained in sinus rhythm with stable heart rate. His troponin went up, it was 0.268 on admission and went up to 1.04. 2D echocardiogram revealed mild LVH, ejection fraction of 75%, severely enlarged left atrium, RVSP of 26. Cardiology consulted and patient underwent stress echocardiogram that revealed normal adequate treadmill echocardiogram which was negative for ischemia by EKG and echocardiographic criteria and ejection fraction was 65%. This elevated troponin attributed to the cardiac arrhythmia. Patient was started on Cardizem p.o. for rate control. He was already on Coumadin for history of recurrent DVT and his INR on the day of discharge was 2. According to cardiology, there was no indication for cardiac catheterization. Patient's vital signs remained stable after he was converted with IV Cardizem bolus. Patient discharged home in a stable medical condition, started on Cardizem CD 120 mg p.o. daily, continued on Coumadin, aspirin and statins as well as previous home medications without any changes, plan to follow-up with cardiology according to Dr. Mendez recommendation, recommended follow-up with PCP in 1 to 2 weeks. - Physical Exam General: Alert, Oriented x3, Cooperative, No apparent distress. HEENT: Atraumatic, PERRLA, EOMI. Neck: Supple, No JVD, Negative Carotid Bruits, Trachea Midline, Thyroid Normal. Lungs: Clear to auscultation, Normal air movement, No rhonchi, No wheeze, No rales. Cardiovascular: Regular rate, Regular Rhythm, Normal S1, Normal S2, PMI Normal. Abdomen: Bowel Sounds Present, Soft, Non Tender, Non-Distended, No Hepato- splenomegaly. Extremities: No clubbing, No cyanosis, No edema Skin: No rashes, No breakdown Neurological: Neuro grossly intact Vital Signs are stable. This note was generated with [employer] software. It may contain incorrect words, spelling, and punctuation that were not noted in checking the note before signing. - Physical Exam Vital Signs Temp Pulse Resp BP Pulse Ox 98.3 F 55 L 18 124/72 H 97 04/08/19 11:51 04/08/19 11:51 04/08/19 11:51 04/08/19 11:51 04/08/19 11:51 Oxygen Flow Rate (L/min) 2 Oxygen Delivery Method Room Air Weight: 268 lb 15.988 oz Body Mass Index (BMI) 34.4 Intake and Output for Last 24 Hours 04/06/19 04/07/19 04/08/19 23:59 23:59 23:59 Intake Total 1730.0 / 1730.0 1042.33 / 1042.33 Balance 1730.0 / 1730.0 1042.33 / 1042.33 Laboratory Tests Past 24 Hrs 04/07/19 04/07/19 04/07/19 13:36 17:08 20:00 WBC RBC Hgb Hct MCV MCH MCHC RDW Std Deviation RDW Coeff of Aditya Plt Count MPV Immature Gran % (Auto) Neut % (Auto) Lymph % (Auto) Brewster % (Auto) Eos % (Auto) Baso % (Auto) Absolute Neuts (auto) Absolute Lymphs (auto) Nucleated RBC % PT INR Sodium Potassium Chloride Carbon Dioxide Anion Gap BUN Creatinine Estim Creat Clear Calc Est GFR (MDRD) Af Amer Est GFR (MDRD) Non-Af BUN/Creatinine Ratio Glucose Calcium Magnesium 1.8 Troponin I 0.268 H 0.755 H* Triglycerides Cholesterol LDL Cholesterol VLDL Cholesterol HDL Cholesterol 04/07/19 04/08/19 04/08/19 22:55 01:50 05:00 WBC 5.5 RBC 3.91 L Hgb 12.7 L Hct 37.5 L MCV 95.9 H MCH 32.5 H MCHC 33.9 RDW Std Deviation 42.3 RDW Coeff of Aditya 12.1 Plt Count 162 MPV 8.9 Immature Gran % (Auto) 0.400 Neut % (Auto) 55.4 Lymph % (Auto) 32.1 Brewster % (Auto) 10.6 H Eos % (Auto) 1.3 Baso % (Auto) 0.2 Absolute Neuts (auto) 3.0 Absolute Lymphs (auto) 1.75 Nucleated RBC % 0 PT INR Sodium Potassium Chloride Carbon Dioxide Anion Gap BUN Creatinine Estim Creat Clear Calc Est GFR (MDRD) Af Amer Est GFR (MDRD) Non-Af BUN/Creatinine Ratio Glucose Calcium Magnesium Troponin I 0.935 H* 1.040 H* Triglycerides Cholesterol LDL Cholesterol VLDL Cholesterol HDL Cholesterol 04/08/19 04/08/19 04/08/19 05:00 05:00 05:00 WBC RBC Hgb Hct MCV MCH MCHC RDW Std Deviation RDW Coeff of Aditya Plt Count MPV Immature Gran % (Auto) Neut % (Auto) Lymph % (Auto) Brewster % (Auto) Eos % (Auto) Baso % (Auto) Absolute Neuts (auto) Absolute Lymphs (auto) Nucleated RBC % PT 22.9 H INR 2.0 Sodium 142 Potassium 3.9 Chloride 110 H Carbon Dioxide 25.0 Anion Gap 7 BUN 20 H Creatinine 0.80 Estim Creat Clear Calc 97.04 Est GFR (MDRD) Af Amer 122 Est GFR (MDRD) Non-Af 101 BUN/Creatinine Ratio 25.0 H Glucose 124 H Calcium 7.8 L Magnesium Troponin I 0.778 H* Triglycerides 70 Cholesterol 114 LDL Cholesterol 66 VLDL Cholesterol 14 HDL Cholesterol 34 L POC Glucose 04/08/19 04/08/19 04/07/19 11:12 06:20 21:13 POC Glucose 163 H 137 H 150 H 04/07/19 17:38 POC Glucose 121 H Disposition: Home Minutes spent on discharge:: 27 Patient Condition:: Stable Meaningful Use Info Meaningful Use Diagnoses (Choose all that apply): None applicable Code Visit OBSV E&M: 62889 Observation care discharge
== END 2019-04-08 11:27 | disposition home or self-care (01) ==
LOC: ED 14:10 → PCU 15:08
PROVIDERS: Hospitalist; Admitting Provider Family Medicine; Emergency Provider Emergency Medicine; Family Provider Family Medicine; PCP Family Medicine; Referring Provider Family Medicine; Visit Provider Hospitalist
DX: I48.91 Unspecified atrial fibrillation (principal); I48.92 Unspecified atrial flutter; E78.5 Hyperlipidemia, unspecified; E11.9 Type 2 diabetes mellitus without complications; E66.9 Obesity, unspecified; I07.1 Rheumatic tricuspid insufficiency; I45.19 Other right bundle-branch block; Z86.718 Personal history of other venous thrombosis and embolism; Z68.34 Body mass index [BMI] 34.0-34.9, adult; Z71.3 Dietary counseling and surveillance; Z79.899 Other long term (current) drug therapy; Z79.84 Long term (current) use of oral hypoglycemic drugs; Z79.01 Long term (current) use of anticoagulants; Z79.82 Long term (current) use of aspirin; Z87.891 Personal history of nicotine dependence
CPT/HCPCS: 36415; 71045; 80048; 80061; 82962; 83735; 84484; 85025; 85610; 93005; 93017; 93306; 93350; 96361; 96374; 97802; 99218; 99285; J7030; Q9957; A4216; C8928; G0378

== ENCOUNTER → 2019-07-26 15:35 | Outpatient (CLI) | payer MEDICARE, OTHER, SELFPAY ==
[2019-04-30 13:53] VITALS: BMI 34.4
== END ==
PROVIDERS: Family Provider Family Medicine; PCP Family Medicine; Visit Provider Family Medicine
DX: N39.0 Urinary tract infection, site not specified (principal)
CPT/HCPCS: 87086; 87088

== ENCOUNTER → 2019-09-13 12:40 | Outpatient (CLI) | payer MEDICARE, OTHER, SELFPAY ==
[2019-04-30 13:53] VITALS: BMI 34.4
--- NOTE | 2019-09-13 12:50 | VDLE_ITS ---
Reason For Study: SWELLING Procedure LEFT Exam performed in department. GSV is normal. A preliminary report was called and/or faxed CFV is compressible, spontaneous, phasic, to DR BOLTON. competent, and demonstrates normal augmentation. FV is compressible, spontaneous, phasic, competent and demonstrates normal augmentation. POP V is compressible, spontaneous, phasic, competent and demonstrates normal augmentation. T/P Trunk is compressible. PTV is compressible. LT PerV is compressible. Interpretation Summary Deep veins of the left lower extremity are patent and compressible segmentally. There is no evidence of left lower extremity deep vein thrombosis. Valvular competence appears intact within the proximal deep venous system on the left . The left great saphenous vein appears patent and compressible segmentally. Ordering Physician: Bob Bolton Referring Physician: Bob Bolton Performed By: Beatriz Avalos, SUZETTE, RVT
== END ==
PROVIDERS: PCP Family Medicine; Referring Provider Family Medicine; Visit Provider Family Medicine
DX: M79.89 Other specified soft tissue disorders (principal); D68.59 Other primary thrombophilia
CPT/HCPCS: 93971

== ENCOUNTER 2020-11-06 18:21 | Inpatient (IN) | payer MEDICARE, OTHER, SELFPAY ==
[2019-04-30 13:53] VITALS: BMI 34.4
[2020-11-06] VITALS (9 sets, daily range): BP systolic 128–150; BP diastolic 78–111; PULSE 55–161; RESP 12–26; TEMP 36.6–36.9; O2SAT 96–98; BMI 35.4; BMI 35.3
--- NOTE | 2020-11-06 18:38 | ED.DCSUM_ITS ---
History of Present Illness Chief Complaint: Chest Pain Informant: Patient Narrative: 75-year-old male presents with chest pain. He states he has a history of atrial flutter. Patient had his last stress test about 2 years ago. He states it was [facility]. 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 Patient states his pain has been constant for 2 hours and it feels like aching. He has not been diaphoretic, nauseous, shortness of breath. He previous had a cardiac catheterization which was negative but was told to take a statin just in case. He is on Coumadin for history of PE. - Past Medical History (1) Atrial flutter with rapid ventricular response Status: Chronic (2) Diabetes mellitus, type II Status: Chronic (3) History of DVT (deep vein thrombosis) Status: Chronic (4) Hyperlipidemia Status: Chronic Past Medical History - Allergies and Home Meds Allergies/Adverse Reactions: Allergies No Known Allergies Allergy (Verified 11/06/20 18:22) Primary Care Physician: Bob Bolton MD [Primary Care Provider] - Prior records reviewed: Yes Surgical History: noncontributory, - - Lumbar back surgery x3, umbilical hernia repair. Lives: Alone Smoking Status: Former smoker - Family History Maternal Family History: Reports: Heart Disease Paternal Family History: Reports: Heart Disease Review of Systems General: Denies: Chills, Fever, Sweats Eyes: Denies: Visual changes - bilaterally, Diplopia ENT: Denies: Rhinorrhea, Sore throat Cardiovascular: Reports: Chest pain, Heart racing Respiratory: Denies: Dyspnea, Cough, Dyspnea on exertion Gastrointestinal: Denies: Abdominal pain, Nausea, Vomiting, Diarrhea, Melena, Hematochezia Genitourinary: Denies: Dysuria, Hematuria, Frequency Musculoskeletal: Denies: Back pain, Extremity Pain Skin: Denies: Rash, Wounds Neurological: Denies: Headache, Weakness, Numbness Psych: Denies: Depression, Anxiety, Suicidal thoughts, Suicidal ideations, -, - Physical Exam Vital Signs/Narrative: Vital Signs Temp Pulse Resp BP Pulse Ox 11/06/20 18:22 98.5 F 161 H 26 H 128/86 H 96 General: Obese, No Acute Distress Head: Normocephalic Eyes: Perrl, EOMI Cardiovascular: Regular rate, Regular rhythm Abdomen: Soft, Nontender Back: Nontender, Normal Inspection Extremities: Nontender, No edema Skin: Normal color, No rash Neurological: Alert, Oriented x3, Cranial nerves II-XII grossly intact Psychological: Normal affect, Normal Mood Diagnostic/Tx/Re-eval Clinical Impression(s) from Imaging Studies Chest X-Ray 11/06/20 18:47 IMPRESSION: No acute radiographic abnormalities. Electronically Signed: Xavier Posey MD at 20:03 EDT Tel , Service support , Laboratory Data 11/06/20 11/06/20 11/06/20 18:28 18:28 18:28 WBC 6.5 RBC 4.39 L Hgb 14.0 Hct 42.2 MCV 96.1 H MCH 31.9 MCHC 33.2 RDW Std Deviation 43.1 RDW Coeff of Aditya 12.1 Plt Count 197 MPV 9.4 Immature Gran % (Auto) 0.300 Neut % (Auto) 66.4 Lymph % (Auto) 22.1 [place] % (Auto) 10.3 H Eos % (Auto) 0.9 Baso % (Auto) 0.0 Absolute Neuts (auto) 4.3 Absolute Lymphs (auto) 1.44 Nucleated RBC % 0 PT 18.1 H INR 1.6 Sodium 137 Potassium 4.1 Chloride 104 Carbon Dioxide 28.0 Anion Gap 5 BUN 21 H Creatinine 1.18 Estim Creat Clear Calc 64.82 Est GFR (MDRD) Af Amer 78 Est GFR (MDRD) Non-Af 64 BUN/Creatinine Ratio 17.8 Glucose 348 H Calcium 9.0 Troponin I 0.018 11/06/20 21:35 WBC RBC Hgb Hct MCV MCH MCHC RDW Std Deviation RDW Coeff of Aditya Plt Count MPV Immature Gran % (Auto) Neut % (Auto) Lymph % (Auto) [place] % (Auto) Eos % (Auto) Baso % (Auto) Absolute Neuts (auto) Absolute Lymphs (auto) Nucleated RBC % PT INR Sodium Potassium Chloride Carbon Dioxide Anion Gap BUN Creatinine Estim Creat Clear Calc Est GFR (MDRD) Af Amer Est GFR (MDRD) Non-Af BUN/Creatinine Ratio Glucose Calcium Troponin I 0.082 H - Medical Decision Making 75-year-old male presenting with chest pain and found to be in what appears to be SVT or a flutter with 3 1 conduction on EKG as interpreted by myself. He states he had the pain for about 2 hours. He also complains of palpitations. He had received adenosine 6 mg and follow-up EKG shows a sinus rhythm at 75 bpm with a first-degree AV block as interpreted by myself. Initial troponin was negative. Lab work shows a white blood cell count of 6.5, hemoglobin 14, hematocrit 42.2, platelets 197. Renal function and electrolytes are unremarkable. Chest x-ray is interpreted by myself shows no acute cardiopulmonary process. Patient had delta EKG and delta troponin at 3 hours. His delta EKG shows a sinus rhythm at 59 bpm with first-degree AV block as interpreted by myself. Second troponin is elevated at 0.082. Patient has already received aspirin 324 mg. Heart score is 6. Patient's INR was subtherapeutic at 1.6 and hospitalist request CTA. This is ordered and pending. Impression: 1. Chest pain 2. Elevated troponin 3. History of a flutter ED Disposition - Plan for ED Patient: Disposition: Acute Care Hospital [facility] Referrals: Bob Bolton MD [Primary Care Provider] -
--- NOTE | 2020-11-06 18:38 | EKG12_ITS ---
Test Reason : REPEAT Blood Pressure : / mmHG Vent. Rate : 075 BPM Atrial Rate : 075 BPM P-R Int : 212 ms QRS Dur : 114 ms QT Int : 384 ms P-R-T Axes : 031 -39 026 degrees QTc Int : 428 ms Sinus rhythm with 1st degree A-V block Left axis deviation Abnormal ECG Confirmed by MITUL HINES, NANCY ([id number]), editor city JACOB STATON ([id number]) on 11/08/2020 10:07:59 AM Referred By: ANGELA Confirmed By:NANCY BAUMAN MD
--- NOTE | 2020-11-06 18:38 | ED.RN ---
RN CALLED FOR EKG, PULLED OLD EKGS FOR
[2020-11-06] MEDS: 0.9% Normal Saline 1,000 ML 1000 ML IV (18:44)
[2020-11-06] MEDS: Adenosine 6 MG/2 ML Syringe IV (18:44)
--- NOTE | 2020-11-06 18:45 | EKG12_ITS ---
Test Reason : REPEAT Blood Pressure : / mmHG Vent. Rate : 059 BPM Atrial Rate : 059 BPM P-R Int : 216 ms QRS Dur : 116 ms QT Int : 410 ms P-R-T Axes : 036 -41 006 degrees QTc Int : 405 ms Sinus bradycardia with 1st degree A-V block Left axis deviation Abnormal ECG Confirmed by MITUL HINES, NANCY ([id number]), editor magazine JACOB STATON ([id number]) on 11/08/2020 10:08:13 AM Referred By: ANGELA Confirmed By:NANCY BAUMAN MD
--- NOTE | 2020-11-06 18:45 | ED.RN ---
PT ARRIVES TO ED A+OX4,WITH CHEST PAIN X 2 HOURS. PT IN SVT ON TELECOMMUNICATION ENGINEER, CONFIRMED WITH EKG. DR. AMAYA AT BEDSIDE. PT HR 155 ON MONITOR. ADENOSINE GIVEN. PT NOW SINUS RHYTHM WITH HR 76. BP 148/83HR76, RR 17, 96% 2Lnc.PT REMAINS A+OX4.
[2020-11-06 18:47] LABS: Absolute Lymphocyte Count 1.44 X10^3/uL (0.83-4.51); Absolute Neutrophil Count 4.3 X10^3/uL (2.0-7.7); Eosinophil# 0.06 X10^3/uL; Eosinophils% 0.9 % (0-5); Hematocrit 42.2 % (40-54); Lymphocyte # 1.44 X10^3/ul (0.83-4.51); Lymphocyte % 22.1 % (19-41); Mean Corp Hgb Conc 33.2 g/dL (32-36); Mean Corpuscular Hgb 31.9 pg (27.0-32.0); Mean Corpuscular Volume 96.1 fL (80-94); Mean Platelet Vol. 9.4 fl (6.2-12.0); Monocyte# 0.67 X10^3/uL; Monocyte% 10.3 % (0-10); NRBC Flagged by Analyzer 0 % (0-5); Neutrophil # 4.33 X10^3/uL (2.7-7.7); Neutrophil % 66.4 % (47-70); Platelet Count 197 K/mm3 (150-450); RBC Distribution Width CV 12.1 % (11.6-14.6); RBC Distribution Width SD 43.1 fl (35.1-43.9); Red Blood Count 4.39 M/mm3 (4.6-6.2); White Blood Count 6.5 K/mm3 (4.4-11.0)
--- NOTE | 2020-11-06 18:47 | RAD_ITS ---
INDICATION: chest pain EXAMINATION/TECHNIQUE: X-RAY - XR Chest 1 View COMPARISON: 04/07/2019. FINDINGS: Bibasilar atelectasis/scarring The lungs are otherwise clear. The cardiomediastinal silhouette is unremarkable. No pleural effusion or pneumothorax. No acute osseous abnormalities. RAD/Chest 1 View (Portable) IMPRESSION: No acute radiographic abnormalities. Electronically Signed: Xavier Posey MD at 20:03 EDT Tel , Service support ,
[2020-11-06] MEDS: Aspirin 81 MG TAB.CHEW 324 MG PO (18:48)
[2020-11-06 18:56] LABS: International Normalized Ratio 1.6; Prothrombin Time (Protime)PT. 18.1 SECONDS (11.7-14.9)
[2020-11-06 19:09] LABS: Anion Gap 5 (5-15); BUN 21 mg/dL (7-18); BUN/Creat Ratio 17.8 RATIO (10-20); Chloride 104 mmol/L (98-107); Creatinine, Serum 1.18 mg/dL (0.70-1.30); EST Glomerular Filtration Rate 64 mL/min (>60); Est Glom Filt Rate - Afr Amer 78 mL/min (>60); Estimated Creatinine Clearance 64.82 ml/min; Glucose 348 mg/dL (74-106); Potassium 4.1 mmol/L (3.5-5.1); Sodium Level 137 mmol/L (136-145)
--- NOTE | 2020-11-06 21:30 | EKG12_ITS ---
Test Reason : CP Blood Pressure : / mmHG Vent. Rate : 156 BPM Atrial Rate : 147 BPM P-R Int : 000 ms QRS Dur : 108 ms QT Int : 298 ms P-R-T Axes : 000 -63 061 degrees QTc Int : 480 ms Supraventricular tachycardia Left axis deviation Nonspecific ST abnormality Abnormal ECG Confirmed by MITUL HINES, NANCY ([id number]), general expeditor JACOB STATON ([id number]) on 11/08/2020 10:12:11 AM Referred By: ANGELA Confirmed By:NANCY BAUMAN MD
--- NOTE | 2020-11-06 22:11 | CT_ITS ---
INDICATION: chest pain EXAMINATION: CTA Chest WO/W Contrast Injection TECHNIQUE: Helically acquired images were obtained of the chest following IV contrast. A radiation dose optimization technique was used for this scan. 3-D post processing images including MIPS were reviewed. IV Contrast dosage and agent: 100 cc [id number] COMPARISON: None. FINDINGS: Lungs: Bilateral groundglass opacities, mostly in the lung bases. Bibasilar atelectasis. Mediastinum: The heart is borderline enlarged. No mediastinal, hilar or axillary adenopathy. Mild aortic arch and coronary artery calcifications. No obvious filling defect seen within the visualized pulmonary arteries. Pleura: Unremarkable Bones/Soft tissues: Degenerative changes of the visualized spine. Diffuse idiopathic skeletal hyperostosis (DISH). Upper abdomen: Hiatal hernia. CT/CTA Chest W/WO Contrast IMPRESSION: No acute pulmonary emboli to segmental level. Groundglass opacities in the bilateral lung bases and right middle lobe could represent edema and/or infection. Borderline cardiomegaly. Diffuse idiopathic skeletal hyperostosis (DISH). Electronically Signed: Xavier Posey MD at 22:42 EDT Tel , Service support ,
--- NOTE | 2020-11-06 23:14 | EKG12_ITS ---
Test Reason : ADM EKG Blood Pressure : / mmHG Vent. Rate : 057 BPM Atrial Rate : 057 BPM P-R Int : 214 ms QRS Dur : 104 ms QT Int : 416 ms P-R-T Axes : 031 -40 023 degrees QTc Int : 404 ms Sinus bradycardia with 1st degree A-V block Left axis deviation Abnormal ECG Confirmed by MITUL HINES, NANCY ([id number]), sports editor JACOB STATON ([id number]) on 11/08/2020 1:14:55 PM Referred By: RADHA Confirmed By:NANCY BAUMAN MD
--- NOTE | 2020-11-06 23:27 | PCM.HP.STD ---
<Elvia Bocanegra - Last Filed: 11/06/20 23:27> Problem List (1) Atrial flutter with rapid ventricular response Status: Acute (2) Subtherapeutic international normalized ratio (INR) Status: Acute (3) Severe obesity (BMI 35.0-35.9 with comorbidity) Status: Chronic (4) BPH (benign prostatic hyperplasia) Status: Chronic (5) Hyperlipidemia Status: Chronic Qualifiers: Hyperlipidemia type: unspecified Qualified Code(s): E78.5 - Hyperlipidemia, unspecified (6) Diabetes mellitus, type II Status: Chronic Qualifiers: Diabetes mellitus usp insulin use: without terminal block assembler use Diabetes mellitus complication status: with other specified complication Qualified Code(s): E11.69 - Type 2 diabetes mellitus with other specified complication (7) History of DVT (deep vein thrombosis) Status: Chronic History of Present Illness Date of Admission: 11/06/20 Chief Complaint: Chest Pain The patient is a 75 year old M presents to the ER with chest pain. Upon arrival patient was put on teletypesetter monitor which showed a flutter with RVR. Patient was given 6 mg of adenosine in ER and converted to sinus rhythm. Patient states he is no longer having any chest pain or symptomatic at this time. Patient has a history of a flutter. Other medical history includes diabetes mellitus type 2, history of DVT, hyperlipidemia, obesity. Patient denies any other symptoms at this time. 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 Past Medical History Past Medical History (Chronic Problems): Chronic Problems (Last Reviewed 11/06/20 @ 23:31 by Elvia Bocanegra NP-C) BPH (benign prostatic hyperplasia) (Chronic) Severe obesity (BMI 35.0-35.9 with comorbidity) (Chronic) Hyperlipidemia (Chronic) Diabetes mellitus, type II (Chronic) Obesity (BMI 30.0-34.9) (Chronic) Low back pain (Chronic) History of DVT (deep vein thrombosis) (Chronic) Samayoa's palsy (Chronic) Medical History: Medical History (Last Reviewed 11/06/20 @ 23:31 by Elvia Bocanegra NP-C) Atrial flutter with rapid ventricular response (Chronic) I48.92 Hyperlipidemia (Chronic) E78.5 Diabetes mellitus, type II (Chronic) E11.9 Obesity (BMI 30.0-34.9) (Chronic) E66.9 Chest pain (Resolved) R07.9 Low back pain (Chronic) M54.5 History of DVT (deep vein thrombosis) (Chronic) Z86.718 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 Allergies No Known Allergies Allergy (Verified 11/06/20 18:22) Home Medications: Ambulatory Orders Medication Instructions Recorded Aspirin 1 tab PO DAILY 04/07/19 Glimepiride 4 mg PO BID 04/07/19 Metformin HCl 1,000 mg PO BID 04/07/19 Multivit-Min/FA/Lycopen/Lutein 0.5 tab PO BID 04/07/19 [Centrum Silver Men Tablet] Simvastatin 40 mg PO DAILY 04/07/19 diltiazem HCl 120 mg 120 mg PO DAILY #90 cap 05/03/20 capsule,extended release 24 hr [place]-3 Fatty Acids/Fish Oil [Fish 2 each PO DAILY 11/06/20 Oil 1,000 mg Capsule] Tamsulosin HCl 0.4 mg PO QHS 11/06/20 Warfarin [Coumadin ([facility])] 2.5 mg PO SUWEFR 11/06/20 Warfarin [Coumadin ([facility])] 5 mg PO MOTUTHSA 11/06/20 Surgical History: Surgical History (Last Reviewed 11/06/20 @ 23:31 by Elvia Bocanegra, POLYMER ENGINEER-C) H/O umbilical hernia repair Z98.890, Z87.19 History of back surgery Z98.890 History of carpal tunnel release of both wrists Z98.890 Surgical History: noncontributory, - - Lumbar back surgery x3, umbilical hernia repair. Psychiatric History: No pertinent psych hx Lives: Alone Smoking Status: Former smoker Alcohol: None Drugs: None - *Family History Maternal History Items: Heart Disease Paternal History Items: Heart Disease Review of Systems Constitutional: Denies: Chills, Fever, Weight Change HEENT: Denies: Head Aches, Sinus Congestion, Sinus Drainage Cardiovascular: Reports: Chest Pain, Palpitations Respiratory: Denies: Cough, Shortness of breath at rest, Sputum production Gastrointestinal: Denies: Abdominal Pain, Nausea, Vomiting Genitourinary: Denies: Dysuria Musculoskeletal: Denies: Joint Pain, Joint Tenderness Skin: Denies: Rash, Wounds Neurological: Denies: Numbness, Tingling, Focal weakness Psychiatric: Denies: Anxiety, Depression, Homicidal Ideations, Suicidal Ideations Hematologic/ Lymphatic: Reports: Hx of blood clot. Denies: Easy Bruising, Easy Bleeding VTE Information - Inpt Only VTE Present on Admission: No VTE Mechan Device Prophylaxis: None VTE Pharm Prophylaxis ordered?: Yes Patient Problems: Active and Suspected Problems (Last Reviewed 11/06/20 @ 23:31 by Elvia Bocanegra NP-C) Subtherapeutic international normalized ratio (INR) (Acute) Atrial flutter with rapid ventricular response (Acute) - Physical Exam Vitals/I&O's: Vital Signs Temp Pulse Resp BP Pulse Ox 98.3 F 57 L 18 134/111 H 98 11/06/20 22:37 11/06/20 22:37 11/06/20 22:37 11/06/20 22:37 11/06/20 22:37 Oxygen Flow Rate (L/min) 2 Oxygen Delivery Method Room Air Weight: 275 lb 2.19 oz Body Mass Index (BMI) 35.3 Intake and Output for Last 24 Hours 11/04/20 11/05/20 11/06/20 23:59 23:59 23:59 Intake Total 1000 / 1000 Balance 1000 / 1000 General: Alert, Oriented x3, Cooperative HEENT: Atraumatic, PERRLA, EOMI, Normocephalic Neck: Supple, No JVD, Negative Carotid Bruits Lungs: Clear to auscultation, Normal air movement Cardiovascular: Regular rate, Regular Rhythm, Normal S1, Normal S2, No murmurs Abdomen: Bowel Sounds Present, Soft, Non Tender Extremities: No edema, Capillary Refill Less than 3 Seconds Skin: No rashes, No breakdown Musculoskeletal: No Tenderness to Palpation of Joints or Extremities Neurological: Cranial nerves II-XII grossly intact Psych/Mental Status: Normal Affect, Appropriate Laboratory Results 11/06/20 18:28: WBC 6.5, RBC 4.39 L, Hgb 14.0, Hct 42.2, MCV 96.1 H, MCH 31.9, MCHC 33.2, RDW Std Deviation 43.1, RDW Coeff of Aditya 12.1, Plt Count 197, MPV 9.4, Immature Gran % (Auto) 0.300, Neut % (Auto) 66.4, Lymph % (Auto) 22.1, [place] % (Auto) 10.3 H, Eos % (Auto) 0.9, Baso % (Auto) 0.0, Absolute Neuts (auto) 4.3, Absolute Lymphs (auto) 1.44, Nucleated RBC % 0 11/06/20 18:28: PT 18.1 H, INR 1.6 11/06/20 18:28: Sodium 137, Potassium 4.1, Chloride 104, Carbon Dioxide 28.0, Anion Gap 5, BUN 21 H, Creatinine 1.18, Estim Creat Clear Calc 64.82, Est GFR (MDRD) Af Amer 78, Est GFR (MDRD) Non-Af 64, BUN/Creatinine Ratio 17.8, Glucose 348 H, Calcium 9.0, Troponin I 0.018 11/06/20 21:35: Troponin I 0.082 H 11/06/20 21:35: Magnesium Pending Current Medications Acetaminophen (Acetaminophen 325 Mg Tablet) 650 mg PO Q6H PRN PRN PRN Reason: Pain Score 1-10/Temp > 100.7 F Insulin Human Lispro (Insulin Lispro 100 Unit/Ml Insuln.Pen) 0 unit SC ACHS ALETHEA; Protocol Melatonin (Melatonin 3 Mg Tablet) 3 mg PO QHS PRN PRN PRN Reason: INSOMNIA Morphine Sulfate (Morphine 2 Mg/Ml Syringe) 2 mg IV Q3H PRN PRN PRN Reason: Pain Score 6-10 Nitroglycerin (Nitroglycerin (Inpatient Use) 0.4 Mg Tab.Subl) 0.4 mg SL Q5M PRN PRN Reason: CARDIAC/CHEST PAIN Ondansetron HCl (Ondansetron 4 Mg/2 Ml Vial) 4 mg IV Q8H PRN PRN PRN Reason: NAUSEA/VOMITING Assessment/Plan All Active Problems (Last Reviewed 11/06/20 @ 23:31 by Elvia Bocanegra, POLYMER ENGINEER-C) Subtherapeutic international normalized ratio (INR) (Acute) Atrial flutter with rapid ventricular response (Acute) Chest pain (Resolved) 1. Atrial flutter with rapid ventricular response -To PCU for observation overnight following adenosine administration in ER -CBC, PT/INR and BMP daily -Trend cardiac enzymes -Cardiology consulted -Continue Cardizem -O2 therapy per protocol 2. Subtherapeutic international normalized ratio -PT/INR daily -Continue Coumadin -Due to subtherapeutic INR will bridge with Lovenox 3. Severe obesity BMI 35.0-35.9 with comorbidity -Lifestyle modification encouraged, nutrition consulted 4. BPH -Continue home regimen 5. Hyperlipidemia -Continue home regimen 6. Diabetes mellitus type 2 -Hold Metformin and glipizide -AC at bedtime blood sugars with sliding scale insulin while inpatient 7. History of DVT -Continue Coumadin with daily INR -Bridge with Lovenox due to subtherapeutic INR DVT prophylaxis-subcu Lovenox, INR subtherapeutic This patient was seen by AMINA Anderson under the supervision of Dr. Easley. 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 Allergies No Known Allergies Allergy (Verified 11/06/20 18:22) Surgical History: Surgical History (Last Reviewed 11/06/20 @ 23:31 by AMINA Anderson) H/O umbilical hernia repair Z98.890, Z87.19 History of back surgery Z98.890 History of carpal tunnel release of both wrists Z98.890 - Physical Exam Vitals/I&O's: Vital Signs Temp Pulse Resp BP Pulse Ox 97.1 F L 58 L 16 139/73 H 99 11/07/20 05:00 11/07/20 05:00 11/07/20 05:00 11/07/20 05:00 11/07/20 05:00 Oxygen Flow Rate (L/min) 2 Oxygen Delivery Method Room Air Weight: 275 lb 2.19 oz Body Mass Index (BMI) 35.3 Intake and Output for Last 24 Hours 11/05/20 11/06/20 11/07/20 23:59 23:59 23:59 Intake Total 1000 / 1240 240 / 240 Balance 1000 / 1240 240 / 240 Laboratory Results 11/06/20 18:28: WBC 6.5, RBC 4.39 L, Hgb 14.0, Hct 42.2, MCV 96.1 H, MCH 31.9, MCHC 33.2, RDW Std Deviation 43.1, RDW Coeff of Aditya 12.1, Plt Count 197, MPV 9.4, Immature Gran % (Auto) 0.300, Neut % (Auto) 66.4, Lymph % (Auto) 22.1, [place] % (Auto) 10.3 H, Eos % (Auto) 0.9, Baso % (Auto) 0.0, Absolute Neuts (auto) 4.3, Absolute Lymphs (auto) 1.44, Nucleated RBC % 0 11/06/20 18:28: PT 18.1 H, INR 1.6 11/06/20 18:28: Sodium 137, Potassium 4.1, Chloride 104, Carbon Dioxide 28.0, Anion Gap 5, BUN 21 H, Creatinine 1.18, Estim Creat Clear Calc 64.82, Est GFR (MDRD) Af Amer 78, Est GFR (MDRD) Non-Af 64, BUN/Creatinine Ratio 17.8, Glucose 348 H, Calcium 9.0, Troponin I 0.018 11/06/20 21:35: Troponin I 0.082 H 11/06/20 21:35: Magnesium 1.9 11/07/20 00:14: POC Glucose 203 H 11/07/20 00:40: Troponin I 0.093 H 11/07/20 03:18: WBC 5.1, RBC 4.01 L, Hgb 13.1, Hct 39.1 L, MCV 97.5 H, MCH 32.7 H, MCHC 33.5, RDW Std Deviation 43.8, RDW Coeff of Aditya 12.2, Plt Count 182, MPV 9.2, Immature Gran % (Auto) 0.200, Neut % (Auto) 49.5, Lymph % (Auto) 37.4, [place] % (Auto) 11.1 H, Eos % (Auto) 1.6, Baso % (Auto) 0.2, Absolute Neuts (auto) 2.5, Absolute Lymphs (auto) 1.89, Nucleated RBC % 0 11/07/20 03:18: Sodium Pending, Potassium Pending, Chloride Pending, Carbon Dioxide Pending, Anion Gap Pending, BUN Pending, Creatinine Pending, Est GFR (MDRD) Af Amer Pending, Est GFR (MDRD) Non-Af Pending, BUN/Creatinine Ratio Pending, Glucose Pending, Calcium Pending 11/07/20 03:18: Troponin I 0.071 H 11/07/20 03:18: PT 19.2 H, INR 1.7 Current Medications Acetaminophen (Acetaminophen 325 Mg Tablet) 650 mg PO Q6H PRN PRN PRN Reason: Pain Score 1-10/Temp > 100.7 F Aspirin (Aspirin 81 Mg Tab.Chew) [facility] Diltiazem HCl (Diltiazem Cd 120 Mg Capsule) 120 mg PO DAILY [facility] Enoxaparin Sodium (Enoxaparin 40 Mg/0.4 Ml Syringe) 40 mg SC DAILY [facility] Last Admin: 11/07/20 00:13 Dose: 40 mg Documented by: Insulin Human Lispro (Insulin Lispro 100 Unit/Ml Insuln.Pen) 0 unit SC [facility]; Protocol Melatonin (Melatonin 3 Mg Tablet) 3 mg PO QHS PRN PRN PRN Reason: INSOMNIA Morphine Sulfate (Morphine 2 Mg/Ml Syringe) 2 mg IV Q3H PRN PRN PRN Reason: Pain Score 6-10 Nitroglycerin (Nitroglycerin (Inpatient Use) 0.4 Mg Tab.Subl) 0.4 mg SL Q5M PRN PRN Reason: CARDIAC/CHEST PAIN Ondansetron HCl (Ondansetron 4 Mg/2 Ml Vial) 4 mg IV Q8H PRN PRN PRN Reason: NAUSEA/VOMITING Tamsulosin HCl (Tamsulosin Hcl 0.4 Mg Capsule) 0.4 mg PO QHS [facility] Warfarin Sodium (Warfarin 2.5 Mg Tablet) 2.5 mg PO [id number]@1700 [facility] Warfarin Sodium (Warfarin 6 Mg Tablet) 6 mg PO [id number]@1700 [facility] Last Admin: 11/07/20 00:12 Dose: 6 mg Documented by: Assessment/Plan Patient seen and examined independently by myself and agree with above assessment and plan.
[2020-11-06 23:34] LABS: Magnesium 1.9 mg/dL (1.6-2.6)
[2020-11-07] VITALS (12 sets, daily range): BP systolic 130–145; BP diastolic 73–78; PULSE 51–59; RESP 16–18; TEMP 36.2–36.8; O2SAT 93–99
[2020-11-07] MEDS: Enoxaparin 40 MG/0.4 ML Syringe SC ×2 (00:13→08:27)
[2020-11-07 00:25] LABS: Bedside Glucose 203 mg/dL (70-110)
[2020-11-07 03:24] LABS: Absolute Lymphocyte Count 1.89 X10^3/uL (0.83-4.51); Absolute Neutrophil Count 2.5 X10^3/uL (2.0-7.7); Basophil# 0.01 X10^3/uL; Basophil% 0.2 % (0-1); Eosinophil# 0.08 X10^3/uL; Eosinophils% 1.6 % (0-5); Hematocrit 39.1 % (40-54); Hemoglobin 13.1 g/dL (13.0-16.5); Lymphocyte # 1.89 X10^3/ul (0.83-4.51); Lymphocyte % 37.4 % (19-41); Mean Corp Hgb Conc 33.5 g/dL (32-36); Mean Corpuscular Hgb 32.7 pg (27.0-32.0); Mean Corpuscular Volume 97.5 fL (80-94); Mean Platelet Vol. 9.2 fl (6.2-12.0); Monocyte# 0.56 X10^3/uL; Monocyte% 11.1 % (0-10); NRBC Flagged by Analyzer 0 % (0-5); Neutrophil % 49.5 % (47-70); Platelet Count 182 K/mm3 (150-450); RBC Distribution Width CV 12.2 % (11.6-14.6); RBC Distribution Width SD 43.8 fl (35.1-43.9); Red Blood Count 4.01 M/mm3 (4.6-6.2); White Blood Count 5.1 K/mm3 (4.4-11.0)
[2020-11-07 03:39] LABS: International Normalized Ratio 1.7; Prothrombin Time (Protime)PT. 19.2 SECONDS (11.7-14.9)
[2020-11-07 05:40] LABS: Anion Gap 7 (5-15); BUN 16 mg/dL (7-18); BUN/Creat Ratio 18.9 RATIO (10-20); Calcium,Total 8.1 mg/dL (8.5-10.1); Chloride 106 mmol/L (98-107); Creatinine, Serum 0.84 mg/dL (0.70-1.30); EST Glomerular Filtration Rate 94 mL/min (>60); Est Glom Filt Rate - Afr Amer 114 mL/min (>60); Estimated Creatinine Clearance 91.06 ml/min; Glucose 207 mg/dL (74-106); Potassium 3.7 mmol/L (3.5-5.1); Sodium Level 139 mmol/L (136-145)
[2020-11-07] MEDS: Insulin Lispro 100 UNIT/ML INSULN.PEN SC ×4 (06:47→21:57)
[2020-11-07 06:55] LABS: Bedside Glucose 223 mg/dL (70-110)
[2020-11-07] MEDS: Aspirin 81 MG TAB.CHEW PO (08:27)
[2020-11-07] MEDS: dilTIAZem CD 120 MG Capsule PO (08:27)
--- NOTE | 2020-11-07 10:49 | NURSING ---
will recheck pt blood glucose when pt orders lunch. pt stated just finished eating breakfast 20 minutes ago.
[2020-11-07 10:55] LABS: Bedside Glucose 283 mg/dL (70-110)
[2020-11-07 11:55] LABS: Bedside Glucose 295 mg/dL (70-110)
--- NOTE | 2020-11-07 14:43 | NURSING ---
Student nurse documentation reviewed.
--- NOTE | 2020-11-07 16:14 | PCM.PN.HOSP ---
<Randall Lundberg - Last Filed: 11/07/20 16:14> Patient Problems: Active and Suspected Problems (Last Reviewed 11/06/20 @ 23:31 by Elvia Bocanegra NP-C) Subtherapeutic international normalized ratio (INR) (Acute) Atrial flutter with rapid ventricular response (Acute) Subjective: Patient is a 75-year-old male comfortably resting off the side of the bed, alert and oriented x3. Patient reports no symptoms and denies chest pain, shortness of breath, palpitations, fever, chills, N/V/D. Objective: Clinical Impression(s) from Imaging Studies Chest X-Ray 11/06/20 18:47 IMPRESSION: No acute radiographic abnormalities. Electronically Signed: Xavier Posey MD at 20:03 EDT Tel , Service support , Chest CTA 11/06/20 22:11 IMPRESSION: No acute pulmonary emboli to segmental level. Groundglass opacities in the bilateral lung bases and right middle lobe could represent edema and/or infection. Borderline cardiomegaly. Diffuse idiopathic skeletal hyperostosis (DISH). Electronically Signed: Xavier Posey MD at 22:42 EDT Tel , Service support , Vitals/I&O's: Vital Signs Temp Pulse Resp BP Pulse Ox 98.3 F 57 L 18 130/78 H 98 11/07/20 11:49 11/07/20 15:00 11/07/20 11:49 11/07/20 11:49 11/07/20 11:49 Oxygen Flow Rate (L/min) 2 Oxygen Delivery Method Room Air Weight: 275 lb 2.19 oz Body Mass Index (BMI) 35.3 Intake and Output for Last 24 Hours 11/05/20 11/06/20 11/07/20 23:59 23:59 23:59 Intake Total 1000 / 1240 1160 / 1160 Balance 1000 / 1240 1160 / 1160 General: Alert, Oriented x3, Cooperative HEENT: Atraumatic, PERRLA, EOMI, Normocephalic Neck: Supple, No JVD, Negative Carotid Bruits Lungs: Clear to auscultation, Normal air movement Cardiovascular: Regular rate, No murmurs Abdomen: Bowel Sounds Present, Soft, Non Tender Extremities: No edema, Capillary Refill Less than 3 Seconds Skin: No rashes, No breakdown Musculoskeletal: No Tenderness to Palpation of Joints or Extremities Neurological: Cranial nerves II-XII grossly intact Psych/Mental Status: Normal Affect, Appropriate Laboratory Results 11/06/20 18:28: WBC 6.5, RBC 4.39 L, Hgb 14.0, Hct 42.2, MCV 96.1 H, MCH 31.9, MCHC 33.2, RDW Std Deviation 43.1, RDW Coeff of Aditya 12.1, Plt Count 197, MPV 9.4, Immature Gran % (Auto) 0.300, Neut % (Auto) 66.4, Lymph % (Auto) 22.1, [place] % (Auto) 10.3 H, Eos % (Auto) 0.9, Baso % (Auto) 0.0, Absolute Neuts (auto) 4.3, Absolute Lymphs (auto) 1.44, Nucleated RBC % 0 11/06/20 18:28: PT 18.1 H, INR 1.6 11/06/20 18:28: Sodium 137, Potassium 4.1, Chloride 104, Carbon Dioxide 28.0, Anion Gap 5, BUN 21 H, Creatinine 1.18, Estim Creat Clear Calc 64.82, Est GFR (MDRD) Af Amer 78, Est GFR (MDRD) Non-Af 64, BUN/Creatinine Ratio 17.8, Glucose 348 H, Calcium 9.0, Troponin I 0.018 11/06/20 21:35: Troponin I 0.082 H 11/06/20 21:35: Magnesium 1.9 11/07/20 00:14: POC Glucose 203 H 11/07/20 00:40: Troponin I 0.093 H 11/07/20 03:18: WBC 5.1, RBC 4.01 L, Hgb 13.1, Hct 39.1 L, MCV 97.5 H, MCH 32.7 H, MCHC 33.5, RDW Std Deviation 43.8, RDW Coeff of Aditya 12.2, Plt Count 182, MPV 9.2, Immature Gran % (Auto) 0.200, Neut % (Auto) 49.5, Lymph % (Auto) 37.4, [place] % (Auto) 11.1 H, Eos % (Auto) 1.6, Baso % (Auto) 0.2, Absolute Neuts (auto) 2.5, Absolute Lymphs (auto) 1.89, Nucleated RBC % 0 11/07/20 03:18: Sodium 139, Potassium 3.7, Chloride 106, Carbon Dioxide 26.0, Anion Gap 7, BUN 16, Creatinine 0.84, Estim Creat Clear Calc 91.06, Est GFR (MDRD) Af Amer 114, Est GFR (MDRD) Non-Af 94, BUN/Creatinine Ratio 18.9, Glucose 207 H, Calcium 8.1 L 11/07/20 03:18: Troponin I 0.071 H 11/07/20 03:18: PT 19.2 H, INR 1.7 11/07/20 06:46: POC Glucose 223 H 11/07/20 10:48: POC Glucose 283 H 11/07/20 11:46: POC Glucose 295 H Current Medications Acetaminophen (Acetaminophen 325 Mg Tablet) 650 mg PO Q6H PRN PRN PRN Reason: Pain Score 1-10/Temp > 100.7 F Aspirin (Aspirin 81 Mg Tab.Chew) [facility] Last Admin: 11/07/20 08:27 Dose: 81 mg Documented by: Diltiazem HCl (Diltiazem Cd 120 Mg Capsule) 120 mg PO DAILY [facility] Last Admin: 11/07/20 08:27 Dose: 120 mg Documented by: Enoxaparin Sodium (Enoxaparin 40 Mg/0.4 Ml Syringe) 40 mg SC DAILY [facility] Last Admin: 11/07/20 08:27 Dose: 40 mg Documented by: Insulin Human Lispro (Insulin Lispro 100 Unit/Ml Insuln.Pen) 0 unit SC [facility]; Protocol Last Admin: 11/07/20 11:46 Dose: 4 units Documented by: Melatonin (Melatonin 3 Mg Tablet) 3 mg PO QHS PRN PRN PRN Reason: INSOMNIA Morphine Sulfate (Morphine 2 Mg/Ml Syringe) 2 mg IV Q3H PRN PRN PRN Reason: Pain Score 6-10 Nitroglycerin (Nitroglycerin (Inpatient Use) 0.4 Mg Tab.Subl) 0.4 mg SL Q5M PRN PRN Reason: CARDIAC/CHEST PAIN Ondansetron HCl (Ondansetron 4 Mg/2 Ml Vial) 4 mg IV Q8H PRN PRN PRN Reason: NAUSEA/VOMITING Tamsulosin HCl (Tamsulosin Hcl 0.4 Mg Capsule) 0.4 mg PO QHS [facility] Warfarin Sodium (Warfarin 2.5 Mg Tablet) 2.5 mg PO SuWeFr@1700 ALETHEA Warfarin Sodium (Warfarin 6 Mg Tablet) 6 mg PO MoTuThSa@1700 ALETHEA Last Admin: 11/07/20 00:12 Dose: 6 mg Documented by: STROKE Vital Signs/Narrative: Vital Signs Pulse 11/07/20 15:00 57 L Medical Necessity - Tobacco Use Smoking Status: Former smoker Assessment/Plan All Active Problems (Last Reviewed 11/06/20 @ 23:31 by Elvia Bocanegra NP-C) Subtherapeutic international normalized ratio (INR) (Acute) Atrial flutter with rapid ventricular response (Acute) Chest pain (Resolved) Patient is a 74-year-old male who presented to the ED with chest pain and was found to be in atrial flutter with RVR. Patient was also noted to have a subtherapeutic INR. Due to elevated troponins, cardiology was consulted. Dr. Irizarry would like the patient to remain admitted for a cardiac catheterization on 11/08/2020. Anticipate discharge tomorrow. 1) Atrial flutter with rapid ventricular response Vital signs stable. Currently rate controlled on Cardizem. Chronically anticoagulated on warfarin. Plan; remain admitted, continue on Cardizem and warfarin, cardiac catheterization planned for 11/08/2020 due to elevated cardiac enzymes. 2) Chest Pain Resolved. Troponins elevated. Plan; same as above. 3) Subtherapeutic international normalized ratio Plan; PT/INR daily, Continue Coumadin, Due to subtherapeutic INR will bridge with Lovenox. 4) Severe obesity BMI 35.0-35.9 with comorbidity. Plan; Lifestyle modification encouraged, nutrition consulted 5) BPH Plan; Continue home regimen 6) Hyperlipidemia Plan; Continue home regimen 7) Diabetes mellitus type 2 Plan; Hold Metformin and glipizide, AC at bedtime blood sugars with sliding scale insulin while inpatient 8) History of DVT Plan; same as #3 DVT prophylaxis - Lovenox SC Patient seen by Randall Lundberg PA-C, under the supervision of Dr. Waller. <Fei Waller - Last Filed: 11/07/20 16:47> Vitals/I&O's: Vital Signs Temp Pulse Resp BP Pulse Ox 97.9 F 56 L 18 145/75 H 97 11/07/20 16:29 11/07/20 16:29 11/07/20 16:29 11/07/20 16:29 11/07/20 16:29 Oxygen Flow Rate (L/min) 2 Oxygen Delivery Method Room Air Weight: 124.8 kg Body Mass Index (BMI) 35.3 Intake and Output for Last 24 Hours 11/05/20 11/06/20 11/07/20 23:59 23:59 23:59 Intake Total 1000 / 1240 1160 / 1160 Balance 1000 / 1240 1160 / 1160 Laboratory Results 11/06/20 18:28: WBC 6.5, RBC 4.39 L, Hgb 14.0, Hct 42.2, MCV 96.1 H, MCH 31.9, MCHC 33.2, RDW Std Deviation 43.1, RDW Coeff of Aditya 12.1, Plt Count 197, MPV 9.4, Immature Gran % (Auto) 0.300, Neut % (Auto) 66.4, Lymph % (Auto) 22.1, [place] % (Auto) 10.3 H, Eos % (Auto) 0.9, Baso % (Auto) 0.0, Absolute Neuts (auto) 4.3, Absolute Lymphs (auto) 1.44, Nucleated RBC % 0 11/06/20 18:28: PT 18.1 H, INR 1.6 11/06/20 18:28: Sodium 137, Potassium 4.1, Chloride 104, Carbon Dioxide 28.0, Anion Gap 5, BUN 21 H, Creatinine 1.18, Estim Creat Clear Calc 64.82, Est GFR (MDRD) Af Amer 78, Est GFR (MDRD) Non-Af 64, BUN/Creatinine Ratio 17.8, Glucose 348 H, Calcium 9.0, Troponin I 0.018 11/06/20 21:35: Troponin I 0.082 H 11/06/20 21:35: Magnesium 1.9 11/07/20 00:14: POC Glucose 203 H 11/07/20 00:40: Troponin I 0.093 H 11/07/20 03:18: WBC 5.1, RBC 4.01 L, Hgb 13.1, Hct 39.1 L, MCV 97.5 H, MCH 32.7 H, MCHC 33.5, RDW Std Deviation 43.8, RDW Coeff of Aditya 12.2, Plt Count 182, MPV 9.2, Immature Gran % (Auto) 0.200, Neut % (Auto) 49.5, Lymph % (Auto) 37.4, [place] % (Auto) 11.1 H, Eos % (Auto) 1.6, Baso % (Auto) 0.2, Absolute Neuts (auto) 2.5, Absolute Lymphs (auto) 1.89, Nucleated RBC % 0 11/07/20 03:18: Sodium 139, Potassium 3.7, Chloride 106, Carbon Dioxide 26.0, Anion Gap 7, BUN 16, Creatinine 0.84, Estim Creat Clear Calc 91.06, Est GFR (MDRD) Af Amer 114, Est GFR (MDRD) Non-Af 94, BUN/Creatinine Ratio 18.9, Glucose 207 H, Calcium 8.1 L 11/07/20 03:18: Troponin I 0.071 H 11/07/20 03:18: PT 19.2 H, INR 1.7 11/07/20 06:46: POC Glucose 223 H 11/07/20 10:48: POC Glucose 283 H 11/07/20 11:46: POC Glucose 295 H Current Medications Acetaminophen (Acetaminophen 325 Mg Tablet) 650 mg PO Q6H PRN PRN PRN Reason: Pain Score 1-10/Temp > 100.7 F Aspirin (Aspirin 81 Mg Tab.Chew) [facility] Last Admin: 11/07/20 08:27 Dose: 81 mg Documented by: Diltiazem HCl (Diltiazem Cd 120 Mg Capsule) 120 mg PO DAILY [facility] Last Admin: 11/07/20 08:27 Dose: 120 mg Documented by: Enoxaparin Sodium (Enoxaparin 40 Mg/0.4 Ml Syringe) 40 mg SC DAILY [facility] Last Admin: 11/07/20 08:27 Dose: 40 mg Documented by: Sodium Chloride () 1,000 mls @ 15 mls/hr IV .Q48H [facility] Insulin Human Lispro (Insulin Lispro 100 Unit/Ml Insuln.Pen) 0 unit SC [facility]; Protocol Last Admin: 11/07/20 16:21 Dose: 3 units Documented by: Melatonin (Melatonin 3 Mg Tablet) 3 mg PO QHS PRN PRN PRN Reason: INSOMNIA Morphine Sulfate (Morphine 2 Mg/Ml Syringe) 2 mg IV Q3H PRN PRN PRN Reason: Pain Score 6-10 Nitroglycerin (Nitroglycerin (Inpatient Use) 0.4 Mg Tab.Subl) 0.4 mg SL Q5M PRN PRN Reason: CARDIAC/CHEST PAIN Ondansetron HCl (Ondansetron 4 Mg/2 Ml Vial) 4 mg IV Q8H PRN PRN PRN Reason: NAUSEA/VOMITING Tamsulosin HCl (Tamsulosin Hcl 0.4 Mg Capsule) 0.4 mg PO QHS [facility] STROKE Vital Signs/Narrative: Vital Signs Temp Pulse Resp BP Pulse Ox 11/07/20 16:29 97.9 F 56 L 18 145/75 H 97 11/07/20 15:00 57 L Assessment/Plan This patient was seen in conjunction with Randall Lundberg PA-C. I have independently interviewed and examined the patient and reviewed pertinent historical, laboratory, and other data. Please refer to Randall Lundberg PA-C's note for details of this patient's presentation, findings, and recommendations. I have reviewed Randall Lundberg PA-C's note and concur with documented findings. In brief, patient is a 75-year-old gentleman admitted with palpitations and chest discomfort EKG obtained on admission was consistent with A. fib/flutter with rapid ventricular response. Patient was also found to have elevated troponin admitted to a monitored bed with consultation placed to cardiology Physical Examination: GENERAL: cooperative HEENT: Atraumatic; EYES; Anicteric, Normal Conjunctiva NECK; supple, normal thyroid, RESPIRATORY: Diminished to auscultation CARDIOVASCULAR: Regular S1 S2, GI: soft, normoactive bowel sounds, : No Renal angle tenderness; EXTREMITIES: No edema, no clubbing, MUSCULOSKELETAL: no muscle waisting NEURO: Awake; no lateralizing signs. SKIN: No Rash PSYCH; Flat affect Assessment: 1. A. fib/flutter with rapid ventricular response 2. Elevated troponin?? Non-STEMI from above; cardiology consulted with plans for left heart catheterization on 11/07/2020 3. Systemic anticoagulation use INR on admission 1.6 4. Morbid obesity with BMI of 35 5. Dyslipidemia 6. BPH 7. Diabetes mellitus type 2 8. History of DVT 9. DVT prophylaxis on systemic anticoagulation Recommendations: 1. I have discussed the results of my overview and impressions with the patient 2. Options for management were reviewed Advance planning; did discuss with the patient and family (patient's daughter) regarding advanced directives as well as CODE STATUS. Did explain the various scenarios involved ( FULL CODE, DNR CCA, DNR CCA with no intubation, and DNR CC and what each meant) patient elected to full code with CPR and intubation if warranted. Order was placed. Time spent on discussion 18 minutes. OBSV E&M: 91184 Initial observation care L3 Procedures: [id number] Advncd Care Plan 30 Min
[2020-11-07 16:51] LABS: Bedside Glucose 240 mg/dL (70-110)
--- NOTE | 2020-11-07 16:55 | CON.PCM_ITS ---
Problem List (1) NSTEMI (non-ST elevated myocardial infarction) Status: Acute (2) SVT (supraventricular tachycardia) Status: Acute (3) Atrial flutter with rapid ventricular response Status: Acute (4) CAD (coronary artery disease) Status: Chronic Qualifiers: Coronary Disease-Associated Artery/Lesion type: [place] artery [place] vs. transplanted heart: [place] heart (5) Hyperlipidemia Status: Chronic Qualifiers: Hyperlipidemia type: unspecified Qualified Code(s): E78.5 - Hyperlipidemia, unspecified (6) Diabetes mellitus, type II Status: Chronic Qualifiers: Diabetes mellitus [employer] insulin use: without jail use Diabetes mellitus complication status: with other specified complication Qualified Code(s): E11.69 - Type 2 diabetes mellitus with other specified complication Reason for Consult Date of Consultation: 11/07/20 History of Present Illness: The patient is a 75 year [id number] white male with a history of atrial flutter, CAD previously partners nonobstructive, hyperlipidemia, and diabetes mellitus, who is referred for evaluation of abnormal cardiac enzymes compatible with an acute non-ST segment elevation AL in the setting of SVT requiring medical management with IV adenosine. States he was in his usual state of he alth prior to his presentation to the hospital when he began to experience indigestion in his chest. He did not complain of any acute respiratory related issues nor did he have obvious nausea, emesis, or diaphoresis. Based upon his aforementioned history he presented to the emergency department for further evaluation. At that time he was found to be in what appeared to be a supraventricular tachycardia which was thought to be related to his history of atrial flutter. However, he was treated with IV adenosine and had abrupt termination of his supraventricular tachycardia back to sinus rhythm raising concern that his underlying findings were related to a reentry mechanism tachycardia. He is remained in sinus rhythm since that time. He states once he was back in normal sinus rhythm his chest discomfort was absent. He has had no further symptoms. He has been monitored in the PCU. His cardiac enzymes did change and were considered indeterminant. His ECG demonstrated sinus rhythm with a left axis deviation with no acute ECG changes. He was referred for further cardiovascular evaluation. [] Past Medical History Allergies/Adverse Reactions: Allergies No Known Allergies Allergy (Verified 11/06/20 18:22) Home Medications: Ambulatory Orders Medication Instructions Recorded Aspirin 1 tab PO DAILY 04/07/19 Glimepiride 4 mg PO BID 04/07/19 Metformin HCl 1,000 mg PO BID 04/07/19 Multivit-Min/FA/Lycopen/Lutein 0.5 tab PO BID 04/07/19 [Centrum Silver Men Tablet] Simvastatin 40 mg PO DAILY 04/07/19 diltiazem HCl 120 mg 120 mg PO DAILY #90 cap 05/03/20 capsule,extended release 24 hr [place]-3 Fatty Acids/Fish Oil [Fish 2 each PO DAILY 11/06/20 Oil 1,000 mg Capsule] Tamsulosin HCl 0.4 mg PO QHS 11/06/20 Warfarin [Coumadin ([facility])] 2.5 mg PO SUWEFR 11/06/20 Warfarin [Coumadin ([facility])] 5 mg PO MOTUTHSA 11/06/20 Past Medical History (Chronic Problems): Chronic Problems (Last Reviewed 11/06/20 @ 23:31 by Elvia Bocanegra, [employer]-C) BPH (benign prostatic hyperplasia) (Chronic) Severe obesity (BMI 35.0-35.9 with comorbidity) (Chronic) CAD (coronary artery disease) (Chronic) Hyperlipidemia (Chronic) Diabetes mellitus, type II (Chronic) Obesity (BMI 30.0-34.9) (Chronic) Low back pain (Chronic) History of DVT (deep vein thrombosis) (Chronic) [place]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 Psychiatric History: No pertinent psych hx - *Family History Maternal History Items: Heart Disease Paternal History Items: Heart Disease Lives: Alone Smoking Status: Former smoker Alcohol: None Drugs: None Review of Systems - Review of Systems General: Denies: Fever, Night Sweats, Fatigue Cardiovascular: Reports: Chest Discomfort, Chest Discomfort at Rest. Denies: Shortness of Breath, Orthopnea, PND, Peripheral Edema, Palpitations, Lightheadedness, Dizziness, Near Syncope, Syncope Respiratory: Denies: Cough, Sputum Production, Hemoptysis Gastrointestinal: Denies: Hematemesis, Hematochezia, Melena Genitourinary: Denies: Dysuria, Hematuria Skin: Denies: Rash Subjectve: This is a 75-year-old white male who appears resting comfortably at the moment in no acute distress. Objective: Vital Signs Temp Pulse Resp BP Pulse Ox 97.9 F 56 L 18 145/75 H 97 11/07/20 16:29 11/07/20 16:29 11/07/20 16:29 11/07/20 16:29 11/07/20 16:29 Oxygen Flow Rate (L/min) 2 Oxygen Delivery Method Room Air Weight: 275 lb 2.19 oz Body Mass Index (BMI) 35.3 Intake and Output for Last 24 Hours 11/05/20 11/06/20 11/07/20 23:59 23:59 23:59 Intake Total 1000 / 1240 1160 / 1160 Balance 1000 / 1240 1160 / 1160 General: Awake, Alert, Oriented x 3, Cooperative, No Acute Distress HEENT: Atraumatic, Normocephalic, PERRL, EOMI, Sclera Non Icteric Neck: Supple, Good ROM, No JVD Lungs: Clear to auscultation Cardiovascular: Regular Rhythm, Normal S1, Normal S2 Vascular: Normal Radial Pulses Abdomen: Bowel Sounds Present, Soft Extremities: No Cyanosis, No Clubbing, No edema Neurological: No Focal Motor or Sensory Deficit Psych/Mental Status: Appropriate 11/06/20 18:28: WBC 6.5, RBC 4.39 L, Hgb 14.0, Hct 42.2, MCV 96.1 H, MCH 31.9, MCHC 33.2, Plt Count 197, MPV 9.4, Immature Gran % (Auto) 0.300, Neut % (Auto) 66.4, Lymph % (Auto) 22.1, [place] % (Auto) 10.3 H, Eos % (Auto) 0.9, Baso % (Auto) 0.0, Absolute Neuts (auto) 4.3, Nucleated RBC % 0 11/06/20 18:28: PT 18.1 H, INR 1.6 11/06/20 18:28: Sodium 137, Potassium 4.1, Chloride 104, Carbon Dioxide 28.0, Anion Gap 5, BUN 21 H, Creatinine 1.18, Est GFR (MDRD) Af Amer 78, Est GFR ( RD) Non-Af 64, BUN/Creatinine Ratio 17.8, Glucose 348 H, Calcium 9.0, Troponin I 0.018 11/06/20 21:35: Troponin I 0.082 H 11/06/20 21:35: Magnesium 1.9 11/07/20 00:40: Troponin I 0.093 H 11/07/20 03:18: WBC 5.1, RBC 4.01 L, Hgb 13.1, Hct 39.1 L, MCV 97.5 H, MCH 32.7 H, MCHC 33.5, Plt Count 182, MPV 9.2, Immature Gran % (Auto) 0.200, Neut % (Auto) 49.5, Lymph % (Auto) 37.4, [place] % (Auto) 11.1 H, Eos % (Auto) 1.6, Baso % (Auto) 0.2, Absolute Neuts (auto) 2.5, Nucleated RBC % 0 11/07/20 03:18: Sodium 139, Potassium 3.7, Chloride 106, Carbon Dioxide 26.0, Anion Gap 7, BUN 16, Creatinine 0.84, Est GFR (MDRD) Af Amer 114, Est GFR (MDRD) Non-Af 94, BUN/Creatinine Ratio 18.9, Glucose 207 H, Calcium 8.1 L 11/07/20 03:18: Troponin I 0.071 H 11/07/20 03:18: PT 19.2 H, INR 1.7 Rhythm: Sinus rhythm EKG: As noted above ECHO: 04-07-2019 Interpretation Summary Mild concentric left ventricular hypertrophy. The estimated ejection fraction is 75 %. The left atrium is severely enlarged. Trivial tricuspid valve insufficiency. Right ventricular systolic pressure estimated to be 26 mmHg. Pt appears to have a baseline 31 mm Hg LVOT gradient at rest which worsens to 38 mm Hg with Valsalve. Pt appears to be in atrial fibrillation. Results called to Dr Melgar at 1440. There is no comparison study available. Stress Test: 04-08-2019 Interpretation Summary The estimated ejection fraction is 65 %. Normal, adequate, treadmill echocardiogram. Negative for ischemia by EKG and ec hocardiographic criteria. No anginal symptoms noted. Rare PVCs noted. Appropriate blood pressure response to exercise. Average exercise capacity for age. Final LVEF is 75%. Test terminated due to leg discomfort. Decreased sensitivity due to poor echo windows requiring Definity agent. No complications. Normal, adequate, treadmill echocardiogram. The study was technically difficult. Contrast injection was performed. Cardiac Cath: None available for review Chest x-ray: IMPRESSION: No acute radiographic abnormalities. Electronically Signed: Xavier Posey MD at 20:[address] Scan: IMPRESSION: No acute pulmonary emboli to segmental level. Groundglass opacities in the bilateral lung bases and right middle lobe could represent edema and/or infection. Borderline cardiomegaly. Diffuse idiopathic skeletal hyperostosis (DISH). Electronically Signed: Xavier Posey MD at 22:42 EDT Assessment/Plan 1. Non-ST segment elevation AL The patient has findings compatible with a non-ST segment elevation AL. Is unclear whether this is a type I event versus a type II event brought out to his underlying SVT. At the present time he appears to be without acute ongoing symptoms. His ECG is demonstrated no acute changes. Based upon his symptoms, his objective findings, superimposed upon his history, it is felt reasonable that he be reassessed in the cardiac catheterization laboratory. The procedure and risks were discussed with him. He was agreeable to this approach. 2. SVT He did have findings compatible with an SVT which was interrupted with IV adenosine thus suggesting an underlying reentry mechanism tachycardia. At the present time he will continue medical management. He will undergo further evaluation as noted. In the future he can be considered for EP consultation for possible EPS/RFA. 3. Atrial flutter He has a history of atrial flutter. He has been on medical management which has included anticoagulant therapy (which is also been used for history of DVT in the past). 4. CAD He has a history of nonobstructive CAD . His previous cardiac catheterization is unavailable for review at this time. He will need to continue risk factor modification medical therapy as deemed appropriate. Based upon this diagnosis and his symptoms and his findings he will undergo further evaluation as described above. 5. Hyperlipidemia He will need to continue risk factor modification medical therapy as deemed appropriate. 6. Diabetes mellitus He will continue under the care of internal medicine. Comment: The patient's case has been discussed and reviewed with the patient with his daughter present. This note was generated using a voice recognition system and there may be incorrect words, spelling or punctuation that were not noted when reviewing the office note prior to saving. Procedure Criteria Procedure Type: Elective COVID Risk Discussion: The surgeon/proceduralist and patient have discussed in detail the risk of exposure to and/or potential harm posed by the COVID-19 virus with having a surgery/procedure at this time versus the risk of delaying the surgery/procedure. It is not possible to know either the risk of delaying the surgery or procedure or chance of getting an infection with perfect accuracy, but a joint decision was made between the patient and the surgeon/proceduralist to proceed at this time with the scheduled surgery/procedure as indicated on the consent form.
[2020-11-07] MEDS: Clopidogrel Bisulfate 300 MG Tablet PO (17:49)
[2020-11-07] MEDS: Phytonadione (Vit K1) 5 MG TABLET PO (17:49)
[2020-11-07] MEDS: Tamsulosin HCl 0.4 MG Capsule PO (21:56)
[2020-11-07 22:06] LABS: Bedside Glucose 217 mg/dL (70-110)
[2020-11-08] VITALS (12 sets, daily range): BP systolic 121–142; BP diastolic 68–81; PULSE 54–61; RESP 16–18; TEMP 36.1–36.7; O2SAT 94–96
--- NOTE | 2020-11-08 05:55 | EKG12_ITS ---
Test Reason : AM EKG Blood Pressure : / mmHG Vent. Rate : 058 BPM Atrial Rate : 058 BPM P-R Int : 200 ms QRS Dur : 116 ms QT Int : 442 ms P-R-T Axes : 046 -43 038 degrees QTc Int : 433 ms Sinus bradycardia with occasional Premature ventricular complexes Left axis deviation Abnormal ECG When compared with ECG of 06-NOV-2020 23:15, MANUAL COMPARISON REQUIRED, DATA IS UNCONFIRMED Confirmed by ALICIA HINES, DANIEL ([id number]), non linear editor SATINDER SHAH ([id number]) on 11/10/2020 8:29:03 AM Referred By: RADHA Confirmed By:CARLOS VARGAS MD
[2020-11-08] MEDS: Aspirin 81 MG TAB.CHEW PO (06:50)
[2020-11-08] MEDS: Clopidogrel Bisulfate 75 MG Tablet PO (06:50)
[2020-11-08 06:55] LABS: Bedside Glucose 232 mg/dL (70-110)
--- NOTE | 2020-11-08 08:23 | PCM.PN.CARD ---
Subjectve: Has been awake and alert. He has denied any ongoing chest discomfort, difficulty breathing, or recurrent palpitations. Objective: Vital Signs Temp Pulse Resp BP Pulse Ox 98.0 F 56 L 18 131/71 H 96 11/08/20 06:42 11/08/20 06:42 11/08/20 06:42 11/08/20 06:42 11/08/20 06:42 Oxygen Flow Rate (L/min) 2 Oxygen Delivery Method Room Air Weight: 275 lb 2.19 oz Body Mass Index (BMI) 35.3 Intake and Output for Last 24 Hours 11/06/20 11/07/20 11/08/20 23:59 23:59 23:59 Intake Total 1000 / 1240 2200 / 2200 50 / 50 Balance 1000 / 1240 2200 / 2200 50 / 50 General: Awake, Alert, Oriented x 3, Cooperative, No Acute Distress HEENT: Atraumatic, Normocephalic, PERRL, EOMI, Sclera Non Icteric Neck: Supple, Good ROM, No JVD Lungs: Clear to auscultation Cardiovascular: Regular Rhythm, Normal S1, Normal S2 Vascular: No Carotid Bruits Abdomen: Bowel Sounds Present, Soft Extremities: No edema Neurological: No Focal Motor or Sensory Deficit Psych/Mental Status: Appropriate Rhythm: Sinus rhythm EKG: Sinus bradycardia; PVCs; left axis deviation Medical Necessity - Tobacco Use Smoking Status: Former smoker Assessment/Plan 1. Non-ST segment elevation MD The patient does have cardiac enzyme findings concerning for non-ST segment elevation MD. He underwent evaluation earlier this morning with a diagnostic cardiac catheterization. The preliminary findings suggest overall preserved left ventricular wall motion systolic function, mild calcification of the coronary arteries, and no angiographically significant appearing CAD. Thus his cardiac enzymes findings may be secondary to his SVT superimposed upon his underlying cardiovascular anatomy compatible with a type II event. At the moment he will continue medical management as deemed appropriate. 2. SVT He did have findings compatible with an SVT which was interrupted with IV adenosine thus suggesting an underlying reentry mechanism tachycardia. His medications will be adjusted. He will be changed from IV diltiazem to oral beta-blockers based upon his overall cardiovascular status/events. At the present time he will continue medical management. He will undergo further evaluation as noted. He is agreeable to referral to [facility] for consideration for EPS/RFA. 3. Atrial flutter He has a history of atrial flutter. He has been on medical management which has included anticoagulant therapy (which is also been used for history of DVT in the past). 4. CAD He has undergone further evaluation and care as noted. He will continue medical management. 5. Hyperlipidemia He will need to continue risk factor modification medical therapy as deemed appropriate. 6. Diabetes mellitus He will continue under the care of internal medicine. Comment: Also, as long as the patient's cardiac catheterization site is stable, he should be able to reinitiate his anticoagulant therapy with continued outpatient follow-up. This note was generated using a voice recognition system and there may be incorrect words, spelling or punctuation that were not noted when reviewing the office note prior to saving.
[2020-11-08] MEDS: 0.9% Normal Saline 1,000 ML 75 ML IV (09:13)
--- NOTE | 2020-11-08 09:54 | CASEMGMT ---
RN DENZEL GLUE BONE DRIER CM to room to meet with patient for initial transition planning/care coordination assessment. RN DENZEL introduced self and role at [facility]. Pt voices understanding and consents to assessment at this time. Pt resting in bed in no distress at this time. Pt is A/O at this time and answers all questions appropriately. Care providers, pharmacy, and demographics verified/updated at this time. PCP: Dr Bob Bolton Specialists: None Preferred Pharmacy: [facility] Insurance: [facility], [facility] Prescription Benefit: Yes LNOK: Son, Lonny. Dtr, Mercedes Living Arrangements: Lives alone in one-story home w/no steps to enter. Independent. Dtr and son both live next door. Transportation: Pt states drives self and states no transportation concerns at this time. DME: Has a glucometer. Denies other DME needs. HHC/SNF: No history of SNF. Has had HHC in the past after knee surgery, but does not remember name of agency. Pt wishes to return home and states has no concerns with going home at time of discharge. Pt states does not smoke. Does drink 2 or 3 beers a week. CM to follow for any discharge planning/needs. Pt voices no concerns/needs at this time. Advised pt to ask for CM if any questions/concerns/needs arise. Voices understanding. PLAN: Home Nancy HOLCOMB RN, CM
[2020-11-08 10:09] LABS: Absolute Neutrophil Count 3.2 X10^3/uL (2.0-7.7); Basophil# 0.01 X10^3/uL; Basophil% 0.2 % (0-1); Eosinophil# 0.03 X10^3/uL; Eosinophils% 0.6 % (0-5); Hemoglobin 13.9 g/dL (13.0-16.5); Lymphocyte % 22.6 % (19-41); Mean Corp Hgb Conc 33.1 g/dL (32-36); Mean Corpuscular Hgb 31.8 pg (27.0-32.0); Mean Corpuscular Volume 96.1 fL (80-94); Mean Platelet Vol. 8.9 fl (6.2-12.0); Monocyte# 0.48 X10^3/uL; Monocyte% 9.9 % (0-10); NRBC Flagged by Analyzer 0 % (0-5); Neutrophil # 3.23 X10^3/uL (2.7-7.7); Neutrophil % 66.5 % (47-70); Platelet Count 180 K/mm3 (150-450); RBC Distribution Width CV 12.2 % (11.6-14.6); RBC Distribution Width SD 43.2 fl (35.1-43.9); Red Blood Count 4.37 M/mm3 (4.6-6.2); White Blood Count 4.9 K/mm3 (4.4-11.0)
[2020-11-08 10:18] LABS: International Normalized Ratio 1.5; Prothrombin Time (Protime)PT. 17.3 SECONDS (11.7-14.9)
[2020-11-08 10:23] LABS: AST(SGOT) 17 U/L (15-37); Alanine Aminotransfer ALT/SGPT 49 U/L (16-61); Albumin, Serum 3.4 g/dL (3.2-5.0); Alkaline Phosphatase 51 U/L (45-117); Anion Gap 5 (5-15); BUN 15 mg/dL (7-18); BUN/Creat Ratio 14.6 RATIO (10-20); Bilirubin, Direct 0.17 mg/dL (0.00-0.30); Calcium,Total 8.3 mg/dL (8.5-10.1); Chloride 103 mmol/L (98-107); Cholesterol 140 mg/dL (200); Creatinine, Serum 1.03 mg/dL (0.70-1.30); EST Glomerular Filtration Rate 75 mL/min (>60); Est Glom Filt Rate - Afr Amer 91 mL/min (>60); Estimated Creatinine Clearance 74.26 ml/min; Globulin 3.3 g/dL (2.2-4.2); Glucose 261 mg/dL (74-106); High Density Lipoprotein 36 mg/dL; Protein, Total 6.7 g/dL (6.4-8.2); Sodium Level 137 mmol/L (136-145); Triglycerides 115 mg/dL; Very Low Density Lipoprotein 23 mg/dL (5-40)
--- NOTE | 2020-11-08 10:44 | DCINST_ITS ---
- Discharge Diagnoses Current Active Problems: Current Active and Chronic Problems (Last Reviewed 11/06/20 @ 23:31 by AMINA Anderson) BPH (benign prostatic hyperplasia) (Chronic) Severe obesity (BMI 35.0-35.9 with comorbidity) (Chronic) Subtherapeutic international normalized ratio (INR) (Acute) NSTEMI (non-ST elevated myocardial infarction) (Acute) SVT (supraventricular tachycardia) (Acute) CAD (coronary artery disease) (Chronic) Atrial flutter with rapid ventricular response (Acute) Hyperlipidemia (Chronic) Diabetes mellitus, type II (Chronic) History of DVT (deep vein thrombosis) (Chronic) You will use the following diet at home:: No restrictions Your food should be the consistency of: Regular Your liquids should be the consistency of: Regular/Thin Discharge Activity: Return to Normal Activity Allergies/Adverse Reactions: Allergies No Known Allergies Allergy (Verified 11/06/20 18:22) Medications to take at Discharge Aspirin 1 tab PO DAILY 04/07/19 Glimepiride 4 mg PO BID 04/07/19 Metformin HCl 1,000 mg PO BID 04/07/19 Multivit-Min/FA/Lycopen/Lutein [Centrum Silver Men Tablet] 0.5 tab PO BID 04/07/19 Simvastatin 40 mg PO DAILY 04/07/19 [place]-3 Fatty Acids/Fish Oil [Fish Oil 1,000 mg Capsule] 2 each PO DAILY 11/06/20 Tamsulosin HCl 0.4 mg PO QHS 11/06/20 Warfarin [Coumadin] 2.5 mg PO SUWEFR 11/06/20 Warfarin [Coumadin] 5 mg PO MOTUTHSA 11/06/20 Metoprolol Tartrate 50 mg PO DAILY #30 tablet 11/08/20 The following prescriptions were given: Metoprolol Tartrate 50 mg PO DAILY #30 tablet Transmission Status: Pending to [id number] Primary Care Physician: Bob Bolton MD [Primary Care Provider] - Please follow up with your Primary Care Physician in: Within the next 2 weeks Test Results: Test results from this visit will be discussed in further detail at your follow- up appointment, if applicable. Please Follow Up With: Dr. Beyer (Skin Installer) When: At your scheduled appointment on November 13, 2020. Proposed Discharge Date: 11/08/20
[2020-11-08] MEDS: Insulin Lispro 100 UNIT/ML INSULN.PEN SC (12:06)
[2020-11-08 12:25] LABS: Bedside Glucose 241 mg/dL (70-110)
--- NOTE | 2020-11-08 12:54 | CASEMGMT ---
Pt to be sent home on Lovenox sc to bridge coumadin and med e-scribed to [facility]. Call to [facility] and per tech, co-pay is $130.38. Pt updated on all and states he would like meds transferred to [facility] retail pharmacy so that he can just take home. Call to Fabiola in pharmacy and she states she will call and get meds from [facility] for pt. Pt/ voice no further questions/concerns/needs. Garcia RICHARDSON CM
--- NOTE | 2020-11-08 12:57 | NURSING ---
Pt ambulated from bed around room and into chair. Rt femoral heart cath site remains C/D/I.
--- NOTE | 2020-11-08 12:57 | PCM.DC.SUM ---
<Randall Lundberg - Last Filed: 11/08/20 12:57> Discharge Date and Diagnosis - Problem List Patient Problems: Active and Suspected Problems (Last Reviewed 11/06/20 @ 23:31 by Elvia Bocanegra NP-Breezy) Subtherapeutic international normalized ratio (INR) (Acute) NSTEMI (non-ST elevated myocardial infarction) (Acute) SVT (supraventricular tachycardia) (Acute) Atrial flutter with rapid ventricular response (Acute) Date of Admission: 11/06/20 Date of Discharge: 11/08/20 - Primary Discharge Diagnosis Acute Problems: Active Problems (Last Reviewed 11/06/20 @ 23:31 by AMINA Anderson) Subtherapeutic international normalized ratio (INR) (Acute) NSTEMI (non-ST elevated myocardial infarction) (Acute) SVT (supraventricular tachycardia) (Acute) Atrial flutter with rapid ventricular response (Acute) - Secondary Discharge Diagnosis Chronic Problems: Chronic Problems (Last Reviewed 11/06/20 @ 23:31 by AMINA Anderson) BPH (benign prostatic hyperplasia) (Chronic) Severe obesity (BMI 35.0-35.9 with comorbidity) (Chronic) CAD (coronary artery disease) (Chronic) Hyperlipidemia (Chronic) Diabetes mellitus, type II (Chronic) Obesity (BMI 30.0-34.9) (Chronic) Low back pain (Chronic) 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 Electronically Signed: Xavier Posey MD at 20:03 EDT Tel , Service support , Chest CTA 11/06/20 22:11 IMPRESSION: No acute pulmonary emboli to segmental level. Groundglass opacities in the bilateral lung bases and right middle lobe could represent edema and/or infection. Borderline cardiomegaly. Diffuse idiopathic skeletal hyperostosis (DISH). Electronically Signed: Xavier Posey MD at 22:42 EDT Tel , Service support , Operations: None Summary of Care Provided: Patient is a 74-year-old male who presented to the ED with chest pain and was found to be in atrial flutter with RVR. Patient was also noted to have a subtherapeutic INR. Due to elevated troponins, cardiology was consulted. Cardiac catheterization on 11/08/2020 demonstrated preserved left ventricular wall motion/systolic function, mild calcification of the coronary arteries and no angiographically significant CAD. Elevated cardiac enzymes may have been related to his SVT. Medical management deemed appropriate, per cardiology. Patient ready for discharge. 1) Atrial flutter with rapid ventricular response Vital signs stable. Currently rate controlled on metoprolol. Chronically anticoagulated on warfarin. Plan; Lovenox bridge initiated discharge, rate control via metoprolol continued at discharge, follow-up with cardiology within the next 2 weeks. 2) Chest Pain Resolved. Elevated troponins may have been the result of SVT. Plan; continue home regimen of aspirin, statin and metoprolol. 3) Subtherapeutic international normalized ratio Plan; Continue Coumadin, Due to subtherapeutic INR will bridge with Lovenox. 4) Severe obesity BMI 35.0-35.9 with comorbidity. Plan; Lifestyle modification encouraged, nutrition consulted 5) BPH Plan; Continue home regimen 6) Hyperlipidemia Plan; Continue home regimen 7) Diabetes mellitus type 2 Plan; Hold Metformin and glipizide, AC at bedtime blood sugars with sliding scale insulin while inpatient 8) History of DVT Plan; same as #3 Patient seen by Randall Lundberg PA-C, under the supervision of Dr. Waller. Patient Problems: Active and Suspected Problems (Last Reviewed 11/06/20 @ 23:31 by Elvia Bocanegra NP-Breezy) Subtherapeutic international normalized ratio (INR) (Acute) NSTEMI (non-ST elevated myocardial infarction) (Acute) SVT (supraventricular tachycardia) (Acute) Atrial flutter with rapid ventricular response (Acute) Subjective: Patient is a 75 male who is comfortably resting in bed, alert and oriented x3. Patient denies any development of symptoms from yesterday and reports feeling fine. Denies chest pain, shortness of breath, palpitations, fever, chills, N/V/D. - Physical Exam Vitals/I&O's: Vital Signs Temp Pulse Resp BP Pulse Ox 97 F L 60 16 142/81 H 96 11/08/20 10:20 11/08/20 11:19 11/08/20 11:19 11/08/20 11:19 11/08/20 11:19 Oxygen Flow Rate (L/min) 2 Oxygen Delivery Method Room Air Weight: 275 lb 2.19 oz Body Mass Index (BMI) 35.3 Intake and Output for Last 24 Hours 11/06/20 11/07/20 11/08/20 23:59 23:59 23:59 Intake Total 1000 / 1240 2200 / 2200 290 / 290 Output Total 300 / 300 Balance 1000 / 1240 2200 / 2200 -10 / -10 General: Alert, Oriented x3, Cooperative HEENT: Atraumatic, PERRLA, EOMI, Normocephalic Neck: Supple, No JVD, Negative Carotid Bruits Lungs: Clear to auscultation, Normal air movement Cardiovascular: Regular rate, No murmurs Abdomen: Bowel Sounds Present, Soft, Non Tender Extremities: No edema, Capillary Refill Less than 3 Seconds Skin: No rashes, No breakdown Musculoskeletal: No Tenderness to Palpation of Joints or Extremities Neurological: Cranial nerves II-XII grossly intact Psych/Mental Status: Normal Affect, Appropriate Laboratory Results 11/07/20 16:20: POC Glucose 240 H 11/07/20 21:55: POC Glucose 217 H 11/08/20 06:49: POC Glucose 232 H 11/08/20 10:00: PT 17.3 H, INR 1.5 11/08/20 10:00: Sodium 137, Potassium 4.0, Chloride 103, Carbon Dioxide 29.0, Anion Gap 5, BUN 15, Creatinine 1.03, Estim Creat Clear Calc 74.26, Est GFR (MDRD) Af Amer 91, Est GFR (MDRD) Non-Af 75, BUN/Creatinine Ratio 14.6, Glucose 261 H, Calcium 8.3 L, Total Bilirubin 0.60, Direct Bilirubin 0.17, AST 17, ALT 49, Alkaline Phosphatase 51, Total Protein 6.7, Albumin 3.4, Globulin 3.3, Triglycerides 115, Cholesterol 140, LDL Cholesterol 81, VLDL Cholesterol 23, HDL Cholesterol 36 L 11/08/20 10:00: WBC 4.9, RBC 4.37 L, Hgb 13.9, Hct 42.0, MCV 96.1 H, MCH 31.8, MCHC 33.1, RDW Std Deviation 43.2, RDW Coeff of Aditya 12.2, Plt Count 180, MPV 8.9, Immature Gran % (Auto) 0.200, Neut % (Auto) 66.5, Lymph % (Auto) 22.6, Chaffee % (Auto) 9.9, Eos % (Auto) 0.6, Baso % (Auto) 0.2, Absolute Neuts (auto) 3.2, Absolute Lymphs (auto) 1.10, Nucleated RBC % 0 11/08/20 11:35: POC Glucose 241 H Current Medications Acetaminophen (Acetaminophen 325 Mg Tablet) 650 mg PO Q6H PRN PRN PRN Reason: Pain Score 1-10/Temp > 100.7 F Aspirin (Aspirin 81 Mg Tab.Chew) [facility] Last Admin: 11/08/20 06:50 Dose: 81 mg Documented by: Atorvastatin Calcium (Atorvastatin Calcium 20 Mg Tablet) 20 mg PO QHS ALETHEA Enoxaparin Sodium (Enoxaparin 40 Mg/0.4 Ml Syringe) 40 mg SC DAILY [facility] Last Admin: 11/08/20 08:49 Dose: Not Given Documented by: Heparin Sodium (Beef Lung) (Heparin Lock 500 Unit/5 Ml In 10 Ml Syringe) 500 unit IV UD PRN PRN Reason: HEPARIN FLUSH Sodium Chloride () 1,000 mls @ 15 mls/hr IV .Q48H [facility] Last Admin: 11/08/20 08:59 Dose: Not Given Documented by: Insulin Human Lispro (Insulin Lispro 100 Unit/Ml Insuln.Pen) 0 unit SC [facility]; Protocol Last Admin: 11/08/20 12:06 Dose: 3 units Documented by: Labetalol HCl (Labetalol (Prefilled) 20 Mg/4 Ml) 5 mg IV X1 PRN PRN Reason: SBP > 160 prior to sheath pull Stop: 11/10/20 08:19 Melatonin (Melatonin 3 Mg Tablet) 3 mg PO QHS PRN PRN PRN Reason: INSOMNIA Metoprolol Succinate (Metoprolol(Xl)Succ 50 Mg Tablet) 50 mg PO DAILY [facility] Last Admin: 04/21/21 10:24 Dose: Not Given Documented by: Morphine Sulfate (Morphine 2 Mg/Ml Syringe) 2 mg IV Q3H PRN PRN PRN Reason: Pain Score 6-10 Nitroglycerin (Nitroglycerin (Inpatient Use) 0.4 Mg Tab.Subl) 0.4 mg SL Q5M PRN PRN Reason: CARDIAC/CHEST PAIN Ondansetron HCl (Ondansetron 4 Mg/2 Ml Vial) 4 mg IV Q8H PRN PRN PRN Reason: NAUSEA/VOMITING Tamsulosin HCl (Tamsulosin Hcl 0.4 Mg Capsule) 0.4 mg PO QHS [facility] Last Admin: 11/07/20 21:56 Dose: 0.4 mg Documented by: Discharge Diet: No Restrictions Discharge Activity: Return to Normal Activity Home Medications: Medications to take at Discharge Aspirin 1 tab PO DAILY 04/07/19 Glimepiride 4 mg PO BID 04/07/19 Metformin HCl 1,000 mg PO BID 04/07/19 Multivit-Min/FA/Lycopen/Lutein [Centrum Silver Men Tablet] 0.5 tab PO BID 04/07/19 Simvastatin 40 mg PO DAILY 04/07/19 [place]-3 Fatty Acids/Fish Oil [Fish Oil 1,000 mg Capsule] 2 each PO DAILY 11/06/20 Tamsulosin HCl 0.4 mg PO QHS 11/06/20 Warfarin [Coumadin] 2.5 mg PO SUWEFR 11/06/20 Warfarin [Coumadin] 5 mg PO MOTUTHSA 11/06/20 Enoxaparin [Lovenox] 120 mg SC Q12@0600,1800 #14 syringe 11/08/20 Metoprolol Succinate 50 mg PO DAILY #30 tab.er.24h 11/08/20 Following Prescriptions Were Given to Patient: Enoxaparin [Lovenox] 120 mg SC Q12@0600,1800 #14 syringe Transmission Status: Received by [id number] Metoprolol Succinate 50 mg PO DAILY #30 tab.er.24h [id number] Primary Care Physician: Bob Bolton MD [Primary Care Provider] - Please follow up with your Primary Care Physician in: Within the next 2 weeks Disposition: Home Minutes spent on discharge:: 35 Patient Condition:: Good Medical Necessity - Tobacco Use Smoking Status: Former smoker Meaningful Use Info Meaningful Use Diagnoses (Choose all that apply): None applicable <Fei Waller - Last Filed: 11/08/20 13:44> Discharge Date and Diagnosis - Primary Discharge Diagnosis Acute Problems: Active Problems (Last Reviewed 11/06/20 @ 23:31 by Elvia Bocanegra NP-Breezy) Subtherapeutic international normalized ratio (INR) (Acute) NSTEMI (non-ST elevated myocardial infarction) (Acute) SVT (supraventricular tachycardia) (Acute) Atrial flutter with rapid ventricular response (Acute) - Secondary Discharge Diagnosis Chronic Problems: Chronic Problems (Last Reviewed 11/06/20 @ 23:31 by ALTAGRACIA AndersonC) BPH (benign prostatic hyperplasia) (Chronic) Severe obesity (BMI 35.0-35.9 with comorbidity) (Chronic) CAD (coronary artery disease) (Chronic) Hyperlipidemia (Chronic) Diabetes mellitus, type II (Chronic) Obesity (BMI 30.0-34.9) (Chronic) Low back pain (Chronic) 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 I have independently interviewed and examined the patient and reviewed pertinent historical, laboratory, and other data. Please refer to Randall Lundberg PA-C's note for details of this patient's presentation, findings, and recommendations. I have reviewed Randall Lundberg PA-C's note and concur with documented findings. In brief, patient is a 75-year-old gentleman admitted with palpitations and chest discomfort EKG obtained on admission was consistent with A. fib/flutter with rapid ventricular response. Patient was also found to have elevated troponin admitted to a monitored bed with consultation placed to cardiology Assessment: 1. A. fib/flutter with rapid ventricular response 2. Elevated troponin?? Non-STEMI from above; with a negative left heart cath 3. Systemic anticoagulation use INR on admission 1.6 4. Morbid obesity with BMI of 35 5. Dyslipidemia 6. BPH 7. Diabetes mellitus type 2 8. History of DVT 9. DVT prophylaxis on systemic anticoagulation Hospital Course; as documented above - Physical Exam Vitals/I&O's: Vital Signs Temp Pulse Resp BP Pulse Ox 97 F L 60 16 142/81 H 96 11/08/20 10:20 11/08/20 11:19 11/08/20 11:19 11/08/20 11:19 11/08/20 11:19 Oxygen Flow Rate (L/min) 2 Oxygen Delivery Method Room Air Weight: 124.8 kg Body Mass Index (BMI) 35.3 Intake and Output for Last 24 Hours 11/06/20 11/07/20 11/08/20 23:59 23:59 23:59 Intake Total 1000 / 1240 2200 / 2200 290 / 290 Output Total 300 / 300 Balance 1000 / 1240 2200 / 2200 -10 / -10 Laboratory Results 11/07/20 16:20: POC Glucose 240 H 11/07/20 21:55: POC Glucose 217 H 11/08/20 06:49: POC Glucose 232 H 11/08/20 10:00: PT 17.3 H, INR 1.5 11/08/20 10:00: Sodium 137, Potassium 4.0, Chloride 103, Carbon Dioxide 29.0, Anion Gap 5, BUN 15, Creatinine 1.03, Estim Creat Clear Calc 74.26, Est GFR (MDRD) Af Amer 91, Est GFR (MDRD) Non-Af 75, BUN/Creatinine Ratio 14.6, Glucose 261 H, Calcium 8.3 L, Total Bilirubin 0.60, Direct Bilirubin 0.17, AST 17, ALT 49, Alkaline Phosphatase 51, Total Protein 6.7, Albumin 3.4, Globulin 3.3, Triglycerides 115, Cholesterol 140, LDL Cholesterol 81, VLDL Cholesterol 23, HDL Cholesterol 36 L 11/08/20 10:00: WBC 4.9, RBC 4.37 L, Hgb 13.9, Hct 42.0, MCV 96.1 H, MCH 31.8, MCHC 33.1, RDW Std Deviation 43.2, RDW Coeff of Aditya 12.2, Plt Count 180, MPV 8.9, Immature Gran % (Auto) 0.200, Neut % (Auto) 66.5, Lymph % (Auto) 22.6, [place]affee % (Auto) 9.9, Eos % (Auto) 0.6, Baso % (Auto) 0.2, Absolute Neuts (auto) 3.2, Absolute Lymphs (auto) 1.10, Nucleated RBC % 0 11/08/20 11:35: POC Glucose 241 H Current Medications Acetaminophen (Acetaminophen 325 Mg Tablet) 650 mg PO Q6H PRN PRN PRN Reason: Pain Score 1-10/Temp > 100.7 F Aspirin (Aspirin 81 Mg Tab.Chew) [facility] Last Admin: 11/08/20 06:50 Dose: 81 mg Documented by: Atorvastatin Calcium (Atorvastatin Calcium 20 Mg Tablet) 20 mg PO QHS [facility] Enoxaparin Sodium (Enoxaparin 40 Mg/0.4 Ml Syringe) 40 mg SC DAILY [facility] Last Admin: 11/08/20 08:49 Dose: Not Given Documented by: Heparin Sodium (Beef Lung) (Heparin Lock 500 Unit/5 Ml In 10 Ml Syringe) 500 unit IV UD PRN PRN Reason: HEPARIN FLUSH Sodium Chloride () 1,000 mls @ 15 mls/hr IV .Q48H [facility] Last Admin: 11/08/20 08:59 Dose: Not Given Documented by: Insulin Human Lispro (Insulin Lispro 100 Unit/Ml Insuln.Pen) 0 unit SC [facility]; Protocol Last Admin: 11/08/20 12:06 Dose: 3 units Documented by: Labetalol HCl (Labetalol (Prefilled) 20 Mg/4 Ml) 5 mg IV X1 PRN PRN Reason: SBP > 160 prior to sheath pull Stop: 11/10/20 08:19 Melatonin (Melatonin 3 Mg Tablet) 3 mg PO QHS PRN PRN PRN Reason: INSOMNIA Metoprolol Succinate (Metoprolol(Xl)Succ 50 Mg Tablet) 50 mg PO DAILY [facility] Last Admin: 11/08/20 10:24 Dose: Not Given Documented by: Morphine Sulfate (Morphine 2 Mg/Ml Syringe) 2 mg IV Q3H PRN PRN PRN Reason: Pain Score 6-10 Nitroglycerin (Nitroglycerin (Inpatient Use) 0.4 Mg Tab.Subl) 0.4 mg SL Q5M PRN PRN Reason: CARDIAC/CHEST PAIN Ondansetron HCl (Ondansetron 4 Mg/2 Ml Vial) 4 mg IV Q8H PRN PRN PRN Reason: NAUSEA/VOMITING Tamsulosin HCl (Tamsulosin Hcl 0.4 Mg Capsule) 0.4 mg PO QHS [facility] Last Admin: 11/07/20 21:56 Dose: 0.4 mg Documented by: Inpatient E&M: [id number] [facility]
--- NOTE | 2020-11-08 14:05 | PHA.DC.MC ---
Pharmacy Service has performed discharge medication reconciliation and counseling for this patient. 1. METOPROLOL SUCCINATE 50MG PO DAILY 2. ENOXAPARIN 120MG SC Q12 X 1 WEEK - PT TO CALL DR. YU TOMORROW TO SET UP INR CHECK The patient's discharge medication list was reviewed for discrepancies and discrepancies were resolved. Spoke with MARCOS Pereira, INR 1.5 today, asked if patient should be bridged. Lovenox ordered. Home Medications Aspirin 1 tab PO DAILY 04/07/19 Glimepiride 4 mg PO BID 04/07/19 Metformin HCl 1,000 mg PO BID 04/07/19 Multivit-Min/FA/Lycopen/Lutein [Centrum Silver Men Tablet] 0.5 tab PO BID 04/07/19 Simvastatin 40 mg PO DAILY 04/07/19 [place]-3 Fatty Acids/Fish Oil [Fish Oil 1,000 mg Capsule] 2 each PO DAILY 11/06/20 Tamsulosin HCl 0.4 mg PO QHS 11/06/20 Warfarin [Coumadin] 2.5 mg PO SUWEFR 11/06/20 Warfarin [Coumadin] 5 mg PO MOTUTHSA 11/06/20 Enoxaparin [Lovenox] 120 mg SC Q12@0600,1800 #14 syringe 11/08/20 Metoprolol Succinate 50 mg PO DAILY #30 tab.er.24h 11/08/20 The patient was counseled on the following discharge medications and changes in medications for homegoing were reviewed. The Reason for Use, instructions for use, and potential side effects were reviewed for all new medications. The patient's questions regarding all of their medications were answered. The patient was able to verbally demonstrate an understanding of their discharge medications.
--- NOTE | 2020-11-08 16:54 | CL.D_ITS ---
Patient Name: STACEY AKERS Study Date: 11/08/2020 Performing: Devang Irizarry MD Ht: 74 inches 188 cm : 1945 Wt: 275.9 lbs 125 kg Age: 75 Gender: male BSA: 2.49 PROCEDURE(S) PERFORMED BL87-TQL/COR/LV CLINICAL PROFILE AND INDICATIONS Indications: ACS <= 24 hrs, Suspected CAD, Cardiac Arrythmia Heart Failure: None Stress/Imaging Stress/Image Study Performed: No Angina Classification Anginal Classification w/in 2 Weeks: CCS III CAD Presentations: Non-STEMI. CONCLUSIONS Elevated Left Ventricular End Diastolic Pressure Normal LV size, wall motion,and systolic function LVEF: by LV gram 60 % Single vessel CAD of the LAD: mild luminal irregularities RECOMMENDATIONS Medical therapy EP consultation for cardiac arrhythmia: SVT for EPS/RFA DESCRIPTION OF PROCEDURE The patient arrived to the procedure lab. The risks and benefits of the procedure as well as a full d escription of our services here and current unavailability of surgical backup were fully explained to the patient and/or their significant other prior to the catheterization. The Timeout was completed, verifying the correct patient and procedure. The patient's procedural site was prepped and draped in the usual fashion. Local anesthetic was given subcutaneously to right groin region with Lidocaine 2%. Using a modified Seldinger technique, arterial access was obtained via the right femoral artery, a 4 Fr sheath was inserted Left Coronary Artery selective angiography was performed in multiple views us ing a 4 Fr. JL5 catheter. Right Coronary Artery selective angiography was then performed in multiple views using a 4 Fr. 3DRC catheter. Left Ventriculography was performed in RIVERA projection using a 4 Fr . Pigtail catheter. LV to AO pullback pressures were then recorded.The arterial sheath was pulled and manual compression applied until hemostasis is achieved. CORONARY ANGIOGRAPHY DOMINANCE: Left Dominant LEFT HEART ASSESSMENT Left Ventricular Ejection Fraction: by LV Gram 60 % Normal LV wall motion Elevated Left Ventricular End Diastolic Pressure LVEDP: 21 mmHg LEFT MAIN: Mild calcification LEFT ANTERIOR DESCENDING ARTERY: PROX LAD: Mild calcification, Mild luminal irregularities CIRCUMFLEX ARTERY: Angiographically normal RIGHT CORONARY ARTERY: Angiographically normal AORTIC ROOT: Angiographically normal COMPLICATIONS No Complications PROCEDURE MEDICATIONS Versed 1 mg IV Oxygen: 2 L/min via nasal cannula SUMMARY OF HEMODYNAMIC DATA Time AIR REST ECG 07:09:00 AO 120/79 (98) SA 08:00:26 LV 141/-2, 24 08:09:05 LV 142/-4, 21 08:09:12 LV 141/-4, 24 08:10:08 LV 141/-6, 25 08:10:14 LVp 143/-4, 23 08:10:22 AOp 142/74 (100) 08:10:28 Signed By Devang Irizarry MD On 11/08/2020 4:53:26 PM Devang Irizarry MD
== END 2020-11-08 15:14 | disposition home or self-care (01) | DRG 282 ==
LOC: ED 18:53 → MS3 22:22 → PCU 11-07 01:30
PROVIDERS: Internal Medicine Cardiovascular Disease; Nurse Practitioner Family; Physician Assistant; Admitting Provider Family Medicine; Emergency Provider Student in an Organized Health Care Education/Training Program; PCP Family Medicine; Visit Provider Internal Medicine
DX: I48.92 Unspecified atrial flutter (principal); I21.4 Non-ST elevation (NSTEMI) myocardial infarction; I21.A1 Myocardial infarction type 2; I47.1 Supraventricular tachycardia; N40.0 Benign prostatic hyperplasia without lower urinary tract symptoms; E78.5 Hyperlipidemia, unspecified; E11.9 Type 2 diabetes mellitus without complications; I44.0 Atrioventricular block, first degree; Z66 Do not resuscitate; E66.01 Morbid (severe) obesity due to excess calories; R79.1 Abnormal coagulation profile; G51.0 Bell's palsy; I48.91 Unspecified atrial fibrillation; Z86.718 Personal history of other venous thrombosis and embolism; Z79.01 Long term (current) use of anticoagulants; Z68.35 Body mass index [BMI] 35.0-35.9, adult; Z79.82 Long term (current) use of aspirin; Z87.891 Personal history of nicotine dependence; Z86.711 Personal history of pulmonary embolism
CPT/HCPCS: 36415; 71045; 71275; 80048; 80061; 80076; 82962; 83735; 84484; 85025; 85610; 93005; 93458; 97802; 99152; 99153; 99285; J7030; J7040; Q9967; A4216; C1769; J0153

== ENCOUNTER 2021-03-13 17:29 | Emergency (ER) | payer MEDICARE, OTHER, SELFPAY ==
[2021-03-13] VITALS (10 sets, daily range): BP systolic 81–158; BP diastolic 62–93; PULSE 52–151; RESP 13–22; TEMP 36.2; O2SAT 94–99; BMI 34.1
--- NOTE | 2021-03-13 18:26 | EKG12_ITS ---
Test Reason : CP Blood Pressure : / mmHG Vent. Rate : 143 BPM Atrial Rate : 120 BPM P-R Int : 000 ms QRS Dur : 098 ms QT Int : 318 ms P-R-T Axes : 000 -33 020 degrees QTc Int : 490 ms Supraventricular tachycardia Left axis deviation Nonspecific ST abnormality Abnormal ECG Confirmed by MITUL HINES, NANCY ([id number]), field map editor SATINDER SHAH ([id number]) on 03/15/2021 10:05:29 AM Referred By: FILIPPO Confirmed By:NANCY BAUMAN MD
[2021-03-13] MEDS: Aspirin 81 MG TAB.CHEW 324 MG PO (18:31)
[2021-03-13] MEDS: Metoprolol Tartrate 5 MG/5 ML Vial IV (18:31)
--- NOTE | 2021-03-13 18:41 | RAD_ITS ---
INDICATION: chest pain EXAMINATION/TECHNIQUE: X-RAY - XR Chest 1 View COMPARISON: 11/06/2020. FINDINGS: The lungs are clear. Persistent left basilar atelectasis. The cardiomediastinal silhouette is unremarkable. No pleural effusion or pneumothorax. Degenerative changes of the thoracic spine. RAD/Chest 1 View (Portable) IMPRESSION: No acute radiographic abnormalities. Electronically Signed: Xavier Posey MD at 19:17 EDT Tel , Service support ,
[2021-03-13 18:53] LABS: Absolute Lymphocyte Count 1.87 X10^3/uL (0.83-4.51); Absolute Neutrophil Count 3.8 X10^3/uL (2.0-7.7); Basophil# 0.01 X10^3/uL; Basophil% 0.2 % (0-1); Eosinophil# 0.06 X10^3/uL; Eosinophils% 0.9 % (0-5); Hematocrit 41.4 % (40-54); Lymphocyte # 1.87 X10^3/ul (0.83-4.51); Lymphocyte % 28.9 % (19-41); Mean Corp Hgb Conc 33.8 g/dL (32-36); Mean Corpuscular Hgb 32.8 pg (27.0-32.0); Mean Platelet Vol. 9.6 fl (6.2-12.0); Monocyte# 0.69 X10^3/uL; Monocyte% 10.7 % (0-10); NRBC Flagged by Analyzer 0 % (0-5); Neutrophil # 3.82 X10^3/uL (2.7-7.7); Neutrophil % 59.1 % (47-70); Platelet Count 203 K/mm3 (150-450); RBC Distribution Width CV 12.4 % (11.6-14.6); RBC Distribution Width SD 44.3 fl (35.1-43.9); Red Blood Count 4.27 M/mm3 (4.6-6.2); White Blood Count 6.5 K/mm3 (4.4-11.0)
[2021-03-13 19:02] LABS: International Normalized Ratio 1.1; Prothrombin Time (Protime)PT. 13.9 SECONDS (11.7-14.9)
--- NOTE | 2021-03-13 19:04 | ED.RN ---
discussed with dr nava pt continued low bp and hr 130's. o2 applied and prepping for cardioversion.
[2021-03-13 19:07] LABS: Anion Gap 6 (5-15); BUN 25 mg/dL (7-18); BUN/Creat Ratio 20.2 RATIO (10-20); Calcium,Total 9.1 mg/dL (8.5-10.1); Chloride 104 mmol/L (98-107); Creatinine, Serum 1.24 mg/dL (0.70-1.30); EST Glomerular Filtration Rate 61 mL/min (>60); Est Glom Filt Rate - Afr Amer 73 mL/min (>60); Estimated Creatinine Clearance 60.77 ml/min; Glucose 146 mg/dL (74-106); Sodium Level 137 mmol/L (136-145); Troponin-I HS 7 pg/mL (3.0-78.0)
[2021-03-13] MEDS: Etomidate 20 MG/10 ML Vial 10 MG IV (19:08)
--- NOTE | 2021-03-13 20:31 | EDS_ITS ---
HPI History of Present Illness Chief Complaint: Chest Pain Informant: patient and family Onset/Context/Timing Onset: Hours Activity at onset: sudden Timing: Continuous Quality: Positive for Burning and Indigestion Location: Substernal Current Severity: Mild Maximum Severity: Moderate Worsened By: Nothing Relieved By: Nothing Narrative Prior Similar Symptoms: Yes (Rapid heartbeat, cardiac catheterization 3 months ago was negative) Recent Illness/Hospitalization: Yes CVD Risk Factors: Positive for Hypertension, Diabetes, Hypercholesterolemia and Smoking PE Risk Factors: Negative for Recent Travel/Surgery, Recent Immobilization, Prior DVT or PE, Cancer and OCP + Smoking + >/=35 TAD Risk Factors: Positive for Hypertension and Family History; Negative for Marfan's Syndrome [facility] Medical History (Updated 03/13/21 @ 20:[address] Fausto Escalante MD) Atrial flutter with rapid ventricular response Samayoa's palsy Chest pain Diabetes mellitus, type II History of DVT (deep vein thrombosis) History of left heart catheterization (LHC) (~11/08/20) Hyperlipidemia Low back pain Obesity (BMI 30.0-34.9) Home Medications aspirin 1 tab PO DAILY 04/07/19 [History Last Taken 04/07/19] glimepiride 4 mg PO BID 04/07/19 [History Last Taken 04/07/19] metformin 1,000 mg PO BID 04/07/19 [History Last Taken 04/07/19] nyqgsvvf-nwz-QP-lycopen-lutein 0.5 tab PO BID 04/07/19 [History Last Taken 04/07/19] simvastatin 40 mg PO DAILY 04/07/19 [History Last Taken 04/06/19] omega-3 fatty acids-fish oil 2 each PO DAILY 11/06/20 [History Last Taken Unknown] tamsulosin 0.4 mg PO QHS 11/06/20 [History Last Taken Unknown] warfarin 2.5 mg PO SUWEFR 11/06/20 [History Last Taken Unknown] warfarin 5 mg PO MOTUTHSA 11/06/20 [History Last Taken Unknown] metoprolol succinate 50 mg tablet,extended release 24 hr 50 mg PO DAILY #90 tab 01/25/21 [Rx Last Taken Unknown] Allergy/AdvReac Type Severity Reaction Status Date / Time No Known Allergies Allergy Verified 03/13/21 17:31 Surgical History H/O umbilical hernia repair History of back surgery History of carpal tunnel release of both wrists Social History (Updated 04/30/19 @ 14:[address] Heladio Mendez MD) Smoking Status: Former smoker quit date: 07/21/1968 pack-years: 1 ROS ROS ED Constitutional Constitutional ED: Denies chills, fever(s) or subjective Eyes Eyes: Reports none ENT ENT ED: Denies ear pain, rhinorrhea or sore throat Cardiovascular Cardiovascular: Reports as per HPI, chest pain, palpitations and racing heartbeat; Denies orthopnea or paroxysmal nocturnal dyspnea Respiratory/Chest Respiratory/Chest: Denies cough, dyspnea, dyspnea on exertion, orthopnea, paroxysmal nocturnal dyspnea or sputum Gastrointestinal Gastrointestinal: Denies abdominal pain, constipation, diarrhea, nausea or vomiting Genitourinary Genitourinary ED: Denies dysuria, hematuria or urinary frequency Musculoskeletal Musculoskeletal: Denies arthralgias, myalgias or neck pain Integumentary Denies rash Neurologic Neurologic: Denies headache(s) or weakness Endocrine Endocrinology: Denies polydipsia, polyphagia or polyuria Hematologic/Lymphatic Hematologic/Lymphatic: Reports easy bleeding; Denies easy bruising EXAM Physical Exam Const Vital Signs: 03/13/21 17:29 03/13/21 17:31 03/13/21 18:39 Temperature 97.2 F L Temperature Source Temporal Pulse Rate 136 H 151 H Pulse Rate [1 (Initial Baseline)] Pulse Rate [2] Pulse Rate [3] Respiratory Rate 19 H 22 H Respiratory Rate [1 (Initial Baseline)] Respiratory Rate [2] Respiratory Rate [3] Respiratory Effort Normal Blood Pressure 106/67 98/80 Blood Pressure [1 (Initial Baseline)] Blood Pressure [2] Blood Pressure [3] Blood Pressure Mean 80 86 Pulse Ox 96 99 Oxygen Delivery Method Room Air Room Air Oxygen Delivery Method [1 (Initial Baseline)] Oxygen Delivery Method [2] Oxygen Flow Rate (L/min) Oxygen Flow Rate (L/min) [1 (Initial Baseline)] 03/13/21 19:02 03/13/21 19:14 03/13/21 19:16 Temperature Temperature Source Pulse Rate 134 H 54 L 52 L Pulse Rate [1 (Initial Baseline)] Pulse Rate [2] Pulse Rate [3] Respiratory Rate 20 H 17 13 Respiratory Rate [1 (Initial Baseline)] Respiratory Rate [2] Respiratory Rate [3] Respiratory Effort Blood Pressure 81/62 L 158/93 H 134/81 H Blood Pressure [1 (Initial Baseline)] Blood Pressure [2] Blood Pressure [3] Blood Pressure Mean 68 114 98 Pulse Ox 94 96 96 Oxygen Delivery Method Room Air Nasal Cannula Nasal Cannula Oxygen Delivery Method [1 (Initial Baseline)] Oxygen Delivery Method [2] Oxygen Flow Rate (L/min) 2 2 Oxygen Flow Rate (L/min) [1 (Initial Baseline)] 03/13/21 19:18 03/13/21 19:23 03/13/21 19:28 Temperature Temperature Source Pulse Rate 133 H 56 L 56 L Pulse Rate [1 (Initial Baseline)] 133 H Pulse Rate [2] 57 L Pulse Rate [3] 59 L Respiratory Rate 16 16 18 Respiratory Rate [1 (Initial Baseline)] 16 Respiratory Rate [2] 16 Respiratory Rate [3] 16 Respiratory Effort Blood Pressure 99/70 143/74 H 134/78 H Blood Pressure [1 (Initial Baseline)] 99/70 Blood Pressure [2] 158/93 H Blood Pressure [3] 133/78 H Blood Pressure Mean Pulse Ox 97 98 98 Oxygen Delivery Method Nasal Cannula Nasal Cannula Room Air Oxygen Delivery Method [1 (Initial Baseline)] Nasal Cannula Oxygen Delivery Method [2] Nasal Cannula Oxygen Flow Rate (L/min) 2 2 Oxygen Flow Rate (L/min) [1 (Initial Baseline)] 2 03/13/21 20:05 Temperature Temperature Source Pulse Rate 54 L Pulse Rate [1 (Initial Baseline)] Pulse Rate [2] Pulse Rate [3] Respiratory Rate 16 Respiratory Rate [1 (Initial Baseline)] Respiratory Rate [2] Respiratory Rate [3] Respiratory Effort Blood Pressure 105/66 Blood Pressure [1 (Initial Baseline)] Blood Pressure [2] Blood Pressure [3] Blood Pressure Mean 79 Pulse Ox 97 Oxygen Delivery Method Room Air Oxygen Delivery Method [1 (Initial Baseline)] Oxygen Delivery Method [2] Oxygen Flow Rate (L/min) Oxygen Flow Rate (L/min) [1 (Initial Baseline)] Positive well nourished, well developed and obese General Appearance ED: well developed and NAD Nutritional Appearance: obese HEENT Reports TM's clear and moist mucous membranes normocephalic and atraumatic Tympanic Membrane ED: Yes TM's clear Eyes PERRL and EOMs intact bilaterally General Eye ED: Negative for pale conjunctiva or scleral icterus Neck no lymphadenopathy, supple and no JVD Chest Wall inspection of chest normal Resp normal respiratory effort Cardio regular rhythm, S1 normal heart sound, S2 normal heart sound and no murmurs Rate: tachycardic GI normal to inspection, nondistended, normoactive bowel sounds, soft to palpation, non-tender and non-distended; Negative for hepatosplenomegaly Back/Spine no CVA tenderness and no thoracic nor lumbar tenderness Cervical Spine: Negative for cervical spine tenderness Extremity normal to inspection General Extremety ED: Yes edema; Negative for pulses abnormal or tenderness General Extremity: edema; Negative for pulses abnormal Neuro oriented x3, CN's II-XII intact bilaterally and no sensory deficits noted Sensorium / Orientation: awake and alert Motor Exam: strength 5/5 throughout Psych mental status grossly normal Skin no rashes or lesions noted and no wounds Heart Score History: Slightly/Non-Suspicious ECG: Normal Age: >/= 65 years Risk Factors: >/= 3 Risk Factors or History of CAD Troponin: </= Normal Limit Score: 4 MDM MDM MDM Narrative Medical decision making narrative: Patient presents with palpitations fast heart rate. He has a narrow complex tachycardia on the monitor. Suspect that his chest discomfort is related to his heart rate since he had an unchanged cath from 3 months ago. He denies associated symptoms. [place] radiation. He is on an anticoagulant. Patient denies any other symptoms. Troponin was obtained rule out ischemia. Troponin with hours of pain is 7. CBC is unremarkable. INR is subthird 1.1. Glucose elevated 146. Lab Data Labs: Laboratory Results - last 24 hr 03/13/21 03/13/21 03/13/21 18:45 18:45 18:45 WBC 6.5 RBC 4.27 L Hgb 14.0 Hct 41.4 MCV 97.0 H MCH 32.8 H MCHC 33.8 RDW Std Deviation 44.3 H RDW Coeff of Aditya 12.4 Plt Count 203 MPV 9.6 Immature Gran % (Auto) 0.200 Neut % (Auto) 59.1 Lymph % (Auto) 28.9 [place] % (Auto) 10.7 H Eos % (Auto) 0.9 Baso % (Auto) 0.2 Absolute Neuts (auto) 3.8 Absolute Lymphs (auto) 1.87 Nucleated RBC % 0 PT 13.9 INR 1.1 Sodium 137 Potassium 4.0 Chloride 104 Carbon Dioxide 27.0 Anion Gap 6 BUN 25 H Creatinine 1.24 Estim Creat Clear Calc 60.77 Est GFR (MDRD) Af Amer 73 Est GFR (MDRD) Non-Af 61 BUN/Creatinine Ratio 20.2 H Glucose 146 H Calcium 9.1 Troponin I High Sens 7 Radiography Chest X-Ray - ED: 1 View (Single portable view chest x-ray reveals no acute process. Cardiac axilla wet is normal. Cardiac size is borderline. Minimal chronic changes in the lungs. No abnormality osseous structures.) Diagnostic Testing: Radiology Impression Chest X-Ray 03/13/21 18:41 IMPRESSION: No acute radiographic abnormalities. Electronically Signed: Xavier Posey MD at 19:17 EDT Tel , Service support , EKG Initial EKG: Interpretation: - (Narrow complex reentry tachycardia with a ventricular rate of 143. QRS duration 98 ms. QT duration 218 ms. [place] is to the left. Is got nonspecific ST-T wave changes which may be rate dependent.) Procedures Other Procedures Procedure(s): 1. Deep sedation for cardioversion 2. Cardioversion Patient was informed of need for cardioversion since he is hypotensive. Patient was explained risk benefits and contraindications for etomidate. He had no questions regarding the use of etomidate hand denies prior reaction to general IV anesthetics. He states he is never been cardioverted he was explained why he needed to be cardioverted. Explained risk benefits. He understood. Timeout was called. Start time was 07/29/2007 End time was 1915 Initial rhythm was the narrow complex reentry tachycardia. Patient had ectopy after cardioversion. He did convert to a sinus rhythm. There was an occasional unifocal ventricular beat noted. He did not desaturate during the procedure. His blood pressure improved. Patient been observed. Patient's case was discussed with Dr. Sukumar Siddiqi his floor scrubber. Recommendation is 50 mg of metoprolol twice daily and to call office for follow- up Discharge Plan Triage Chief Complaint: Chest Pain ED Provider: Fausto Escalante Dx/Rx/DC Orders Clinical Impression: SVT (supraventricular tachycardia) Instructions: ED Understanding Supraventricular Tachycardia (SVT) Prescriptions: No Action simvastatin 40 MG tablet 40 mg PO DAILY RF: 0 glimepiride 4 MG tablet 4 mg PO BID RF: 0 aspirin 81 mg tablet,chewable 1 tab PO DAILY RF: 0 metformin 1,000 MG tablet 1,000 mg PO BID RF: 0 eekfaunp-grv-WP-lycopen-lutein 1 EACH tablet 0.5 tab PO BID RF: 0 tamsulosin 0.4 MG capsule 0.4 mg PO QHS RF: 0 warfarin 2.5 MG tablet 2.5 mg PO SUWEFR RF: 0 warfarin 5 MG tablet 5 mg PO MOTUTHSA RF: 0 omega-3 fatty acids-fish oil 1 EACH capsule 2 each PO DAILY RF: 0 metoprolol succinate 50 mg tablet extended release 24 hr 50 mg PO DAILY Qty: 90 RF: 3 Primary Care Provider: Bob Bolton Referrals: Devang Irizarry MD [STAFF PHYSICIAN] - 5-7 Days Bob Bolton MD [Primary Care Provider] - Activity Restrictions/Additional Instructions: 1. Increase metoprolol to 1 tablet in the morning and 1 tablet in the evening 2. Contact Dr. Irizarry's office in the morning for follow-up Disposition Disposition: Home, Self Care
== END 2021-03-13 21:09 | disposition home or self-care (01) ==
PROVIDERS: Emergency Provider Emergency Medicine; PCP Family Medicine
DX: I47.1 Supraventricular tachycardia (principal); E11.9 Type 2 diabetes mellitus without complications; E78.5 Hyperlipidemia, unspecified; G51.0 Bell's palsy; I10 Essential (primary) hypertension; I25.10 Atherosclerotic heart disease of native coronary artery without angina pectoris; I48.92 Unspecified atrial flutter; E66.9 Obesity, unspecified; Z68.30 Body mass index [BMI] 30.0-30.9, adult; Z79.01 Long term (current) use of anticoagulants; Z79.82 Long term (current) use of aspirin; Z79.84 Long term (current) use of oral hypoglycemic drugs; Z86.718 Personal history of other venous thrombosis and embolism; Z87.891 Personal history of nicotine dependence
CPT/HCPCS: 71045; 80048; 84484; 85025; 85610; 92960; 93005; 99152; 99284; A4216

== ENCOUNTER → 2022-05-27 | Outpatient (CLI) | payer MEDICARE, OTHER, SELFPAY ==
--- NOTE | 2022-05-27 16:46 | NEURO ---
NCS and/or EMG Patient Report Ordering Doctor: Chauncey Acosta DATE OF SERVICE: 05/27/22 Indication: Numbness in the 4th/5th digits of the left hand. Progressive senior abap developer weakness. Evaluate for entrapment neuropathy. Findings: Nerve conduction studies were performed in the left upper extremity. The left median motor study recording the abductor pollicis brevis showed a slightly reduced amplitude, prolonged distal latency and borderline normal conduction velocity. The left ulnar motor study recording the abductor digiti minimi showed a normal amplitude, normal distal latency and normal conduction velocity. Focal slowing was present across the elbow. The left ulnar motor study recording the first dorsal interosseous showed a normal amplitude, normal distal latency and normal conduction velocity. Conduction block and focal slowing were present across the elbow. The left median sensory response recording digit two showed a normal amplitude, normal latency and mildly slowed conduction velocity. The left ulnar sensory response recording digit five showed a reduced amplitude, normal latency and borderline conduction velocity. The left radial sensory response recording over the extensor snuff box showed a normal amplitude, latency and conduction velocity. Needle EMG of the left upper extremity muscles was performed. The cervical paraspinal muscles were not sampled as the patient is on warfarin. Sparse active denervation was seen in the first dorsal interosseous, but not any other muscle. Motor units in the first dorsal interosseous and abductor digiti minimi were large amplitude, long duration with reduced recruitment. Motor units in the abductor pollicis brevis were large amplitude and long duration with normal recruitment. All motor other unit morphology, activation and recruitment patterns were normal. Impression: This is an abnormal study. 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 The pathophysiology is predominantly demyelinating with secondary active and chronic axonal loss. In addition, there is electrophysiologic evidence a median neuropathy across the left wrist. A mild, chronic, left C8/T1 radiculopathy cannot be entirely excluded due to the absent of paraspinal sampling (see above). Xavier Weinstein D.O. Multi Select Codes Neurology Neurology Interp Codes: 79147-17 Musc test done w/n test comp (interp) and 24350-03 Nrv cndj test 7-8 studies (interp)
== END | disposition home or self-care (01) ==
LOC: PSN 15:44
PROVIDERS: PCP Family Medicine; Referring Provider Family Medicine; Visit Provider Family Medicine
DX: G56.22 Lesion of ulnar nerve, left upper limb (principal)
CPT/HCPCS: 95886; 95910

== ENCOUNTER 2022-09-02 18:34 | Observation (INO) | payer MEDICARE, OTHER, SELFPAY ==
[2022-09-02] VITALS (7 sets, daily range): BP systolic 115–157; BP diastolic 62–82; PULSE 97–104; RESP 18–19; TEMP 36.4–36.7; O2SAT 94–99; BMI 33.3; BMI 34.4; BMI 33.1
--- NOTE | 2022-09-02 18:47 | EKG12_ITS ---
Test Reason : STROKE Blood Pressure : / mmHG Vent. Rate : 096 BPM Atrial Rate : 096 BPM P-R Int : 194 ms QRS Dur : 106 ms QT Int : 340 ms P-R-T Axes : 048 -55 043 degrees QTc Int : 429 ms Normal sinus rhythm Left axis deviation Poor R wave progression Abnormal ECG Confirmed by MITUL HINES, NANCY ([id number]), purchase request editor SATINDER SHAH ([id number]) on 09/03/2022 10:18:27 AM Referred By: Confirmed By:NANCY BAUMAN MD
--- NOTE | 2022-09-02 18:48 | CT_ITS ---
We are attempting to reach an attending provider to discuss findings. An addendum with communication details will be sent when the communication is complete. EXAM: CT HEAD WITHOUT INTRAVENOUS CONTRAST CLINICAL INDICATION: Neuro deficit, acute, stroke suspected TECHNIQUE: Multiple axial images were obtained of the head without intravenous contrast. This CT exam was performed using one or more of the following dose reduction techniques: automated exposure control, adjustment of the mA and/or kV according to patient size, and/or use of iterative reconstruction technique. This report was created using [employer] technology. COMPARISON: None. FINDINGS: BRAIN AND EXTRA-AXIAL SPACES: There is minimal decreased density seen within the left frontal temporal region possibly representing early ischemia. There is enlargement of ventricular system and cortical sulci. There is hypoattenuation in the periventricular white matter. No intra- or extra-axial hemorrhage. No intracranial mass or mass effect. Posterior fossa structures are unremarkable. Basal cisterns are patent. BONES/JOINTS: Unremarkable. No discrete lytic or blastic abnormalities. VASCULATURE: There is increased density in the left middle cerebral artery suspicious for thrombus. SINUSES: Unremarkable as visualized. Clear. MASTOID AIR CELLS: Unremarkable. Clear. ORBITS: Visualized globes, extraocular muscles, optic nerves and retrobulbar fat appear unremarkable. CT/STROKE Brain/Head without Cont IMPRESSION: 1. Increased density in the left middle cerebral artery possibly representing thrombus. There is some minimal decreased density seen within the left frontal temporal lobe possibly representing early ischemia. 2. Underlying senescent change with small vessel ischemia. 3. Aspects score 9. Electronically Signed: Vidal Yoo MD at 19:01 EST ,
--- NOTE | 2022-09-02 18:48 | ED.VIS.STROK ---
HPI History of Present Illness Chief Complaint: Neuro S/Sx Narrative Narrative: Patient was seen right away due to stroke symptoms. Last well-known time was 530 this morning however he did drive to [place] and drove back. About 330 this afternoon he was found to be confused, he has a baseline left-sided facial droop but it was worse he was also quite off balance per . He was brought to the emergency department. Symptoms seem to be improving. Patient is denying any concerns at this time. No chest pain or shortness of breath. No vision changes. [facility] Medical History (Updated 09/02/22 @ 19:[address] Devang Nguyen MD) Atherosclerotic heart disease of [place] coronary artery without angina pectoris Atrial flutter with rapid ventricular response Samayoa's palsy Chest pain Diabetes mellitus, type II Essential hypertension History of DVT (deep vein thrombosis) History of left heart catheterization (LHC) (~11/08/20) Hyperlipidemia Low back pain Obesity (BMI 30.0-34.9) Home Medications aspirin 81 mg chewable tablet 1 tab PO DAILY heart health 04/07/19 [History Last Taken 04/07/19] glimepiride 4 mg tablet 4 mg PO BID diabetes 04/07/19 [History Last Taken 04/07/19] metformin 1,000 mg tablet 1,000 mg PO BID diabetes 04/07/19 [History Last Taken 04/07/19] msnnwomd-xmi-yhedc acid 300 mcg-lycopene 600 mcg-lutein 300 mcg tablet 0.5 tab PO BID vitamin 04/07/19 [History Last Taken 04/07/19] simvastatin 40 mg tablet 40 mg PO DAILY cholesterol 04/07/19 [History Last Taken 04/06/19] tamsulosin 0.4 mg capsule 0.4 mg PO QHS prostate 11/06/20 [History Last Taken Unknown] warfarin 2.5 mg tablet 3 mg PO DAILY blood thinner 11/06/20 [History Last Taken Unknown] warfarin 5 mg tablet 5 mg PO MOTUTHSA blood thinner 11/06/20 [History Last Taken Unknown] famotidine 20 mg tablet 20 mg PO BID 10/05/21 [History Last Taken Unknown] lisinopril 5 mg tablet 5 mg PO DAILY 10/05/21 [History Last Taken Unknown] omeprazole 20 mg tablet,delayed release 20 mg PO DAILY 10/05/21 [History Last Taken Unknown] Allergy/AdvReac Type Severity Reaction Status Date / Time No Known Allergies Allergy Verified 09/02/22 18:43 Surgical History (Updated 09/02/22 @ 18:59 by Domenica Rivera) H/O umbilical hernia repair History of back surgery History of carpal tunnel release of both wrists History of radiofrequency ablation procedure for cardiac arrhythmia (~05/17/21) Total knee replacement status Social History Smoking Status: Former smoker quit date: 07/21/1968 pack-years: 1 ROS ROS ED ROS Narrative . Past medical history: Reviewed Medications: Reviewed Social history: Noncontributory Review of systems: All systems negative except as indicated General: No fever Eyes: No visual changes ENT: No upper airway congestion, normal voice Neck: No neck pain Cardiovascular: No chest pain Respiratory: No shortness of breath or cough Gastrointestinal: No abdominal pain, nausea vomiting or diarrhea Genitourinary: No dysuria Musculoskeletal: Denies myalgias no difficulty with ambulation Skin: No rash Neurological: As in HPI Psych: No recent behavioral changes EXAM Physical Exam Narrative Exam Narrative: Physical exam General: Well nourished, Well developed, No Acute Distress Head: Normocephalic, Atraumatic Eyes: Conjunctiva not pale ENT: Moist mucous membranes Neck: Supple, Nontender, No lymphadenopathy Cardiovascular: Regular rate, Regular rhythm Respiratory: No distress, CTA bilaterally Abdomen: Soft, Nontender, Nondistended Back: Nontender, Normal Inspection. Negative for: CVA tenderness Extremities: Nontender, No edema Skin: Normal color, No rash Neurological: See NIH stroke scale he has some cerebellar dysfunction with [id number]-fn-waxi on the left, left-sided facial droop, initially he was confused about the month but now he knows the month. Psychological: Normal affect Const Vital Signs: 09/02/22 18:36 09/02/22 18:56 09/02/22 19:01 Temperature 97.6 F L 97.6 F L Temperature Source Temporal Temporal Pulse Rate 104 H 104 H Respiratory Rate 18 18 Blood Pressure 157/82 H 157/82 H Blood Pressure Mean 107 107 Pulse Ox 99 99 Oxygen Delivery Method Room Air Room Air Room Air 09/02/22 19:05 Temperature Temperature Source Pulse Rate 98 Respiratory Rate 19 H Blood Pressure 141/75 H Blood Pressure Mean 97 Pulse Ox 94 Oxygen Delivery Method NIHSS NIHSS Initial: 1a Level of Consciousness: 0 1b LOC Questions (Score 2 if aphasic/stupor): 1 1c LOC Commands (Only score 1st attempt): 0 2 Best Gaze (If aphasic, use reflexive mvmts.): 0 3 Visual: 0 4 Facial Palsy: 1 ( says it is chronic but somewhat worse today on the left) 5 Motor Arm Right (UN = amputation/fusion): 0 5 Motor Arm Left: 0 6 Motor Leg Right: 0 6 Motor Leg Left: 0 7 Limb ataxia (Only + if out of proportion): 1 8 Sensory (Aphasia/stupor=0 or 1, coma=2): 0 9 Best Language: 0 10 Dysarthria (mute, coma=2, intubated=UN): 1 ( sais it's chronic) 11 Extinction and Inattention (only scored if +): 0 Total Score: 4 MDM MDM Lab Data Labs: Laboratory Results - last 24 hr 09/02/22 09/02/22 09/02/22 18:43 18:55 18:55 WBC 7.6 RBC 4.25 L Hgb 13.6 Hct 40.6 MCV 95.5 H MCH 32.0 MCHC 33.5 RDW Std Deviation 43.3 RDW Coeff of Aditya 12.6 Plt Count 202 MPV 9.2 Immature Gran % (Auto) 0.300 Neut % (Auto) 83.0 H Lymph % (Auto) 8.6 L [place] % (Auto) 8.1 Eos % (Auto) 0.0 Baso % (Auto) 0.0 Absolute Neuts (auto) 6.3 Absolute Lymphs (auto) 0.65 L Nucleated RBC % 0 PT 23.8 H INR 2.2 APTT 39.4 H Sodium Potassium Chloride Carbon Dioxide Anion Gap BUN Creatinine Estim Creat Clear Calc Est GFR (MDRD) Af Amer Est GFR (MDRD) Non-Af BUN/Creatinine Ratio Glucose Calcium Troponin I High Sens POC Glucose 171 H 09/02/22 18:55 WBC RBC Hgb Hct MCV MCH MCHC RDW Std Deviation RDW Coeff of Aditya Plt Count MPV Immature Gran % (Auto) Neut % (Auto) Lymph % (Auto) [place]rick % (Auto) Eos % (Auto) Baso % (Auto) Absolute Neuts (auto) Absolute Lymphs (auto) Nucleated RBC % PT INR APTT Sodium 137 Potassium 4.4 Chloride 106 Carbon Dioxide 25.0 Anion Gap 6 BUN 34 H Creatinine 1.30 Estim Creat Clear Calc 57.08 Est GFR (MDRD) Af Amer 69 Est GFR (MDRD) Non-Af 57 L BUN/Creatinine Ratio 26.2 H Glucose 175 H Calcium 9.1 Troponin I High Sens 5 POC Glucose Radiography Diagnostic Testing: Clinical Impression(s) from Imaging Studies Brain CT 09/02/22 18:48 IMPRESSION: 1. Increased density in the left middle cerebral artery possibly representing thrombus. There is some minimal decreased density seen within the left frontal temporal lobe possibly representing early ischemia. 2. Underlying senescent change with small vessel ischemia. 3. Aspects score 9. Electronically Signed: Vidal Yoo MD at 19:01 EST , ADDENDUM: 09/02/22 1912 IMPRESSION: 1. Increased density in the left middle cerebral artery possibly representing thrombus. There is some minimal decreased density seen within the left frontal temporal lobe possibly representing early ischemia. 2. Underlying senescent change with small vessel ischemia. 3. Aspects score 9. N.B. : The above Results were Read Back by Vidal Yoo MD to Devang Nguyen MD, and understanding confirmed on 09/02/2022 19:05:28 (ET). Electronically Signed: Vidal Yoo MD at 19:01 EST , EKG Initial EKG: Comments: Sinus rhythm with a rate of 96. Normal WA and QTc intervals. No ischemic changes Interpreted by emergency doctor. Treatment and Re-Evaluation Narrative: A. Problems addressed Patient has stroke symptoms, large vessel occlusion was ruled out, intracranial bleed was ruled out. Patient seems to be improving. I talked to stroke neurology, patient's outside time for tPA. We will need admission. B. Amount and/or complexity of the data 1. I discussed with the family and as well as son who are both at bedside CBC and CMP and other blood work were ordered and interpreted by me 2. Independent interpretation of test Telemetry: Sinus rhythm with a rate in the 90s without ectopy. 3. I discussed with stroke neurology, stroke radiologist and hospitalist for admission. C. Risk of complications and/or morbidity See above. Patient does not meet criteria for tPA due to time window. Patient has multiple medical problems that would predispose him to a stroke, he will need admission. Critical Care Time Critical Care Time: Yes Critical care time (excluding procedures): 30-74 minutes, Including time spent:, Discussing w/Patient &/or Family/Engine Cleaner, Discussing w/Consultants, Arranging Admission or Transfer, Performing Direct Patient Care at Bedside and - (30 minutes) Discharge Plan Triage Chief Complaint: Neuro S/Sx ED Provider: Devang Nguyen Dx/Rx/DC Orders Clinical Impression: Stroke, History of atrial fibrillation, History of hypertension, CAD (coronary artery disease), Diabetes mellitus, type II Prescriptions: No Action lisinopril 5 mg tablet 5 mg PO DAILY famotidine 20 mg tablet 20 mg PO BID omeprazole 20 mg tablet,delayed release (DR/EC) 20 mg PO DAILY simvastatin 40 MG tablet 40 mg PO DAILY Label Comments: TAKE 1 TABLET BY MOUTH ONCE DAILY AT BEDTIME glimepiride 4 MG tablet 4 mg PO BID Label Comments: TAKE 1 TABLET BY MOUTH TWICE DAILY aspirin 81 mg tablet,chewable 1 tab PO DAILY metformin 1,000 MG tablet 1,000 mg PO BID afxhygte-zaz-OQ-lycopen-lutein 1 EACH tablet 0.5 tab PO BID tamsulosin 0.4 MG capsule 0.4 mg PO QHS warfarin 2.5 MG tablet 3 mg PO DAILY warfarin 5 MG tablet 5 mg PO [facility] Primary Care Provider: Bob Bolton Referrals: Bob Bolton MD [Primary Care Provider] - Disposition Disposition: Acute Care Hospital [facility]
--- NOTE | 2022-09-02 18:55 | CT_ITS ---
We are attempting to reach an attending provider to discuss findings. An addendum with communication details will be sent when the communication is complete. EXAM: CT ANGIOGRAPHY HEAD AND NECK WITH INTRAVENOUS CONTRAST CLINICAL INDICATION: cva TECHNIQUE: [place] [facility] [place]/head and neck CT angiography protocol performed with intravenous contrast. This CT exam was performed using one or more of the following dose reduction techniques: automated exposure control, adjustment of the mA and/or kV according to patient size, and/or use of iterative reconstruction technique. This report was created using [employer] report generation technology. MIP reconstructed images were created and reviewed. CONTRAST: IV 100mL Isovue-370 COMPARISON: None. FINDINGS: HEAD: RIGHT ANTERIOR CEREBRAL ARTERY: Unremarkable. No significant stenosis at the visualized segments. Anterior communicating artery is present. No aneurysm. RIGHT MIDDLE CEREBRAL ARTERY: There is a large amount of soft and calcific plaque origin of the right middle cerebral artery with the vessel now approximately 50-60% soft plaque posteriorly. No significant stenosis at the visualized segments. No aneurysm. RIGHT POSTERIOR CEREBRAL ARTERY: There is a origin posterior cerebral arteries bilaterally. No occlusion or significant stenosis. No aneurysm. RIGHT INTRACRANIAL INTERNAL CAROTID ARTERY: Unremarkable. No significant stenosis. No dissection or occlusion. RIGHT INTRACRANIAL VERTEBRAL ARTERY: Unremarkable. No significant stenosis. No dissection or occlusion. LEFT ANTERIOR CEREBRAL ARTERY: Unremarkable. No significant stenosis at the visualized segments. No aneurysm. LEFT MIDDLE CEREBRAL ARTERY: Unremarkable. No significant stenosis at the visualized segments. No aneurysm. LEFT POSTERIOR CEREBRAL ARTERY: See above. LEFT INTRACRANIAL INTERNAL CAROTID ARTERY: Unremarkable. No significant stenosis. No dissection or occlusion. LEFT INTRACRANIAL VERTEBRAL ARTERY: Unremarkable. No significant stenosis. No dissection or occlusion. BASILAR ARTERY: The basilar artery is very small in caliber. No significant stenosis. No aneurysm. OTHER VASCULATURE: The left vertebral artery is much larger than the right as the dominant supplier to the basilar system. No vascular malformation. NECK: RIGHT COMMON CAROTID ARTERY: Unremarkable. No significant stenosis. No dissection or occlusion. RIGHT EXTRACRANIAL INTERNAL CAROTID ARTERY: Unremarkable. No significant stenosis. No dissection or occlusion. RIGHT EXTERNAL CAROTID ARTERY: Unremarkable. No occlusion. RIGHT EXTRACRANIAL VERTEBRAL ARTERY: Unremarkable. No significant stenosis. No dissection or occlusion. LEFT COMMON CAROTID ARTERY: Unremarkable. No significant stenosis. No dissection or occlusion. LEFT EXTRACRANIAL INTERNAL CAROTID ARTERY: Unremarkable. No significant stenosis. No dissection or occlusion. LEFT EXTERNAL CAROTID ARTERY: Unremarkable. No occlusion. LEFT EXTRACRANIAL VERTEBRAL ARTERY: Unremarkable. No significant stenosis. No dissection or occlusion. BRACHIOCEPHALIC AND SUBCLAVIAN ARTERIES: Unremarkable as visualized. No occlusion or significant stenosis. LUNG APICES: See above. HEAD and NECK: BONES/JOINTS: Unremarkable. No discrete lytic or blastic abnormalities. SOFT TISSUES: Unremarkable. CAROTID STENOSIS REFERENCE USING NASCET CRITERIA: % ICA stenosis = (1 - narrowest ICA diameter/diameter of distal cervical ICA) x 100. Mild - <50% stenosis. Moderate - 50-69% stenosis. Severe - 70-94% stenosis. Near occlusion - 95-99% stenosis. Occluded - 100% stenosis. CT/STROKE CTA Head AND Neck W/Con IMPRESSION: 1. Soft and calcific plaque seen in the posterior aspect of the proximal right internal carotid artery which narrows the vessel approximately 50% over a 4 mm segment. There is no high-grade stenosis. 2. Very small caliber basilar artery. There is a origin posterior cerebral arteries bilaterally. 3. All cerebral vessels are patent. Electronically Signed: Vidal Yoo MD at 19:29 EST ,
[2022-09-02 19:06] LABS: Bedside Glucose 171 mg/dL (74-106)
[2022-09-02 19:07] LABS: Absolute Lymphocyte Count 0.65 X10^3/uL (0.83-4.51); Absolute Neutrophil Count 6.3 X10^3/uL (2.0-7.7); Hematocrit 40.6 % (40-54); Hemoglobin 13.6 g/dL (13.0-16.5); Lymphocyte # 0.65 X10^3/ul (0.83-4.51); Lymphocyte % 8.6 % (19-41); Mean Corp Hgb Conc 33.5 g/dL (32-36); Mean Corpuscular Volume 95.5 fL (80-94); Mean Platelet Vol. 9.2 fl (6.2-12.0); Monocyte# 0.61 X10^3/uL; Monocyte% 8.1 % (0-10); NRBC Flagged by Analyzer 0 % (0-5); Neutrophil # 6.27 X10^3/uL (2.7-7.7); Platelet Count 202 K/mm3 (150-450); RBC Distribution Width CV 12.6 % (11.6-14.6); RBC Distribution Width SD 43.3 fl (35.1-43.9); Red Blood Count 4.25 M/mm3 (4.6-6.2); White Blood Count 7.6 K/mm3 (4.4-11.0)
[2022-09-02 19:16] LABS: International Normalized Ratio 2.2; Prothrombin Time (Protime)PT. 23.8 SECONDS (11.7-14.9)
[2022-09-02 19:17] LABS: Partial Thromboplast Time 39.4 Seconds (24.1-36.2)
[2022-09-02 19:24] LABS: Anion Gap 6 (5-15); BUN 34 mg/dL (7-18); BUN/Creat Ratio 26.2 RATIO (10-20); Calcium,Total 9.1 mg/dL (8.5-10.1); Chloride 106 mmol/L (98-107); EST Glomerular Filtration Rate 57 mL/min (>60); Est Glom Filt Rate - Afr Amer 69 mL/min (>60); Estimated Creatinine Clearance 57.08 ml/min; Glucose 175 mg/dL (74-106); Potassium 4.4 mmol/L (3.5-5.1); Sodium Level 137 mmol/L (136-145); Troponin-I HS 5 pg/mL (3.0-78.0)
--- NOTE | 2022-09-02 19:30 | RAD_ITS ---
EXAM: XR CHEST, 1 VIEW CLINICAL INDICATION: Neuro deficit, acute, stroke suspected TECHNIQUE: Frontal view of the chest. This report was created using [employer] report generation technology. COMPARISON: 03/13/2021 FINDINGS: LUNGS AND PLEURAL SPACES: Unremarkable. No consolidation or edema. No pneumothorax. No effusion. HEART: Unremarkable. Cardiac silhouette not enlarged. MEDIASTINUM: Central airways and mediastinal contour are unremarkable. BONES/JOINTS: Unremarkable. SOFT TISSUES: Unremarkable. RAD/Chest 1 View IMPRESSION: No radiographic evidence of acute cardiopulmonary disease. Electronically Signed: Vidal Yoo MD at 19:50 EST ,
--- NOTE | 2022-09-02 19:53 | CM.ED ---
Social Work Note Referral Reason: Stroke Alert Referral Source: Case Find SW met with patient's daughter and son. Provided emotional support. SW remains available if needs arise. Nichelle DURAN
[2022-09-02 20:00] LABS: BNP,B-Type NATRIURETIC PEPTIDE 40.6 pg/mL (0-100)
--- NOTE | 2022-09-02 20:20 | PCM.HP.STD ---
HPI - General General Date of Admission: 09/02/22 Date of Service: 09/02/22 Chief Complaint: Neurologic symptoms with left facial droop HPI Narrative STACEY AKERS, is a 77 M who presents to the emergency room with change in mental status and left facial droop. Patient has a significant past medical history of stroke and has a baseline NIH score of 2 according to his spouse. He presents to the emergency room after being found by family to be confused this afternoon with a more pronounced left facial droop than normal. He was brought to the emergency room with initial NIH score for and a CT angiogram was negative for occlusive disease. His last known well time was 5:30 AM and therefore was not a candidate for thrombolytic therapy. Since arrival to the emergency room his mental status has improved as well as his NIH score has improved to his baseline. He will be admitted overnight for observation in the progressive care unit and MRI will be ordered in the a.m. Patient will be needing outpatient follow-up with primary care and neurology. [facility] Medical History (Updated 09/02/22 @ 20:[address] Devang Easley MD) Atherosclerotic heart disease of [place] coronary artery without angina pectoris Atrial flutter with rapid ventricular response Samayoa's palsy Chest pain Diabetes mellitus, type II Essential hypertension History of DVT (deep vein thrombosis) History of left heart catheterization (LHC) (~11/08/20) Hyperlipidemia Low back pain Obesity (BMI 30.0-34.9) Home Medications aspirin 81 mg chewable tablet 1 tab PO DAILY heart health 04/07/19 [History Last Taken 04/07/19] glimepiride 4 mg tablet 4 mg PO BID diabetes 04/07/19 [History Last Taken 04/07/19] metformin 1,000 mg tablet 1,000 mg PO BID diabetes 04/07/19 [History Last Taken 04/07/19] lersyadd-xph-yjdhz acid 300 mcg-lycopene 600 mcg-lutein 300 mcg tablet 0.5 tab PO BID vitamin 04/07/19 [History Last Taken 04/07/19] simvastatin 40 mg tablet 40 mg PO DAILY cholesterol 04/07/19 [History Last Taken 04/06/19] tamsulosin 0.4 mg capsule 0.4 mg PO QHS prostate 11/06/20 [History Last Taken Unknown] warfarin 2.5 mg tablet 3 mg PO DAILY blood thinner 11/06/20 [History Last Taken Unknown] warfarin 5 mg tablet 5 mg PO MOTUTHSA blood thinner 11/06/20 [History Last Taken Unknown] famotidine 20 mg tablet 20 mg PO BID 10/05/21 [History Last Taken Unknown] lisinopril 5 mg tablet 5 mg PO DAILY 10/05/21 [History Last Taken Unknown] omeprazole 20 mg tablet,delayed release 20 mg PO DAILY 10/05/21 [History Last Taken Unknown] Allergy/AdvReac Type Severity Reaction Status Date / Time No Known Allergies Allergy Verified 09/02/22 18:43 Surgical History (Updated 09/02/22 @ 18:59 by Domenica Rivera) H/O umbilical hernia repair History of back surgery History of carpal tunnel release of both wrists History of radiofrequency ablation procedure for cardiac arrhythmia (~05/17/21) Total knee replacement status Social History Smoking Status: Former smoker quit date: 07/21/1968 pack-years: 1 ROS Constitutional Constitutional: Denies anorexia, chills or fever(s) Eyes Eyes: Denies blurry vision ENT HEENT: Denies abnormal hearing Cardiovascular Cardiovascular: Denies chest pain Gastrointestinal Gastrointestinal: Denies abdominal pain Genitourinary Genitourinary: Denies dysuria Musculoskeletal Musculoskeletal: Denies back pain Integumentary Integumentary: Denies jaundice Neurologic Neurologic: Reports abnormal speech Psychiatric Psychiatric: Denies anxiety Endocrine Endocrinology: Denies change in body appearance Vital Signs Vital Signs Vital Signs: 09/02/22 18:36 09/02/22 18:56 09/02/22 19:01 Temperature 97.6 F L 97.6 F L Temperature Source Temporal Temporal Pulse Rate 104 H 104 H Respiratory Rate 18 18 Blood Pressure 157/82 H 157/82 H Blood Pressure Mean 107 107 Pulse Ox 99 99 Oxygen Delivery Method Room Air Room Air Room Air 09/02/22 19:05 09/02/22 19:30 Temperature Temperature Source Pulse Rate 98 98 Respiratory Rate 19 H 18 Blood Pressure 141/75 H 115/72 Blood Pressure Mean 97 86 Pulse Ox 94 97 Oxygen Delivery Method Room Air Weight Weight: 268 lb 1.314 oz Body Mass Index (BMI) 34.4 Physical Exam Const oriented x3 General Appearance: cooperative HEENT normocephalic and head/scalp atraumatic Eyes PERRL Neck no lymphadenopathy Lymph Lymphatic: no lymphadenopathy noted Resp normal respiratory effort, normal air movement and clear to auscultation bilaterally Cardio regular rate, regular rhythm, S1 normal heart sound and S2 normal heart sound GI normal to inspection, nondistended, normoactive bowel sounds Extremity normal capillary refill Skin General Skin Exam: no breakdown Neuro CN's II-XII intact bilaterally Neuro Narrative: Mild left-sided facial droop present Speech: speech abnormal Details: Positive for other (slow) Motor Exam: strength 5/5 throughout Psych thought process normal, cooperative and affect normal Mood & Affect: Negative for depressed Results Lab / Micro Data Result Diagrams: 09/02/22 18:55 09/02/22 18:55 Labs: Laboratory Results - last 24 hr 09/02/22 18:43: POC Glucose 171 H 09/02/22 18:55: WBC 7.6, RBC 4.25 L, Hgb 13.6, Hct 40.6, MCV 95.5 H, MCH 32.0, MCHC 33.5, RDW Std Deviation 43.3, RDW Coeff of Aditya 12.6, Plt Count 202, MPV 9.2, Immature Gran % (Auto) 0.300, Neut % (Auto) 83.0 H, Lymph % (Auto) 8.6 L, [place] % (Auto) 8.1, Eos % (Auto) 0.0, Baso % (Auto) 0.0, Absolute Neuts (auto) 6.3, Absolute Lymphs (auto) 0.65 L, Nucleated RBC % 0 09/02/22 18:55: PT 23.8 H, INR 2.2, APTT 39.4 H 09/02/22 18:55: Sodium 137, Potassium 4.4, Chloride 106, Carbon Dioxide 25.0, Anion Gap 6, BUN 34 H, Creatinine 1.30, Estim Creat Clear Calc 57.08, Est GFR (MDRD) Af Amer 69, Est GFR (MDRD) Non-Af 57 L, BUN/Creatinine Ratio 26.2 H, Glucose 175 H, Calcium 9.1, Troponin I High Sens 5 09/02/22 18:55: B-Natriuretic Peptide 40.[address] 09/02/22 18:48 IMPRESSION: 1. Increased density in the left middle cerebral artery possibly representing thrombus. There is some minimal decreased density seen within the left frontal temporal lobe possibly representing early ischemia. 2. Underlying senescent change with small vessel ischemia. 3. Aspects score 9. Electronically Signed: Vidal Yoo MD at 19:01 EST , ADDENDUM: 09/02/22 1912 IMPRESSION: 1. Increased density in the left middle cerebral artery possibly representing thrombus. There is some minimal decreased density seen within the left frontal temporal lobe possibly representing early ischemia. 2. Underlying senescent change with small vessel ischemia. 3. Aspects score 9. N.B. : The above Results were Read Back by Vidal Yoo MD to Devang Nguyen MD, and understanding confirmed on 09/02/2022 19:05:28 (ET). Electronically Signed: Vidal Yoo MD at 19:01 EST , Head/Neck CTA 09/02/22 18:55 IMPRESSION: 1. Soft and calcific plaque seen in the posterior aspect of the proximal right internal carotid artery which narrows the vessel approximately 50% over a 4 mm segment. There is no high-grade stenosis. 2. Very small caliber basilar artery. There is a origin posterior cerebral arteries bilaterally. 3. All cerebral vessels are patent. Electronically Signed: Vidal Yoo MD at 19:29 EST , ADDENDUM: 09/02/22 1940 IMPRESSION: 1. Soft and calcific plaque seen in the posterior aspect of the proximal right internal carotid artery which narrows the vessel approximately 50% over a 4 mm segment. There is no high-grade stenosis. 2. Very small caliber basilar artery. There is a origin posterior cerebral arteries bilaterally. 3. All cerebral vessels are patent. N.B. : The above Results were Read Back by Vidal Yoo MD to Devang Nguyen MD, and understanding confirmed on 09/02/2022 19:33:31 (ET). Electronically Signed: Vidal Yoo MD at 19:29 EST , Chest X-Ray 09/02/22 19:30 IMPRESSION: No radiographic evidence of acute cardiopulmonary disease. Electronically Signed: Vidal Yoo MD at 19:50 EST , Assessment & Plan Assessment/Plan (1) History of atrial fibrillation: (2) History of hypertension: (3) CAD (coronary artery disease): QUALIFIERS: Coronary Disease-Associated Artery/Lesion type: [place] artery [place] vs. transplanted heart: [place] heart (4) TIA (transient ischemic attack): PLAN: Plan 1. Neurologic changes consistent with transient ischemic attack?admit patient to progressive care unit for observation with neurochecks per routine protocol, patient is anticoagulated on Coumadin and will continue to monitor INR, order MRI of the head in the a.m. 2. History of atrial fibrillation?patient is anticoagulated and rate is currently controlled monitor INR in a.m. 3. History of hypertension?we will continue routine home medications 4. DVT prophylaxis?patient is already anticoagulated Charges/Coding Visit Charges OBSV E&M: 40515 Observ/hosp same date L2
--- NOTE | 2022-09-02 20:35 | MRI_ITS ---
HISTORY: Stroke. TECHNIQUE: Multiplanar and multisequence MR images of the brain were obtained without contrast. 300 images. COMPARISON: CT prior day. FINDINGS: BRAIN PARENCHYMA: Mild periventricular white matter changes in the bilateral cerebral hemispheres. No abnormal focus of restricted diffusion. No acute intracranial hemorrhage identified. CSF SPACES: Generalized volume loss. No significant midline shift or other mass effect.No extra-axial fluid collection. VASCULAR SYSTEM: Major intracranial flow voids are maintained. PARANASAL SINUSES AND MASTOID AIR CELLS: Mild maxillary sinus mucosal thickening. ORBITS: Symmetric contents. MRI/Brain without Contrast IMPRESSION: No evidence for acute infarct. Chronic involutional and white matter changes. Electronically Signed: Nena Clark MD at 10:18 EST ,
[2022-09-02] MEDS: Famotidine 20 MG Tablet PO (22:46)
[2022-09-02] MEDS: Tamsulosin HCl 0.4 MG Capsule PO (22:46)
[2022-09-02] MEDS: Glimepiride 4 MG Tablet PO (22:46)
[2022-09-02] MEDS: Atorvastatin Calcium 20 MG Tablet PO (22:46)
[2022-09-03 00:50] VITALS: BP 136/60; PULSE 88; RESP 16; TEMP 38; O2SAT 95
[2022-09-03 04:30] VITALS: BP 117/72; PULSE 87; RESP 18; TEMP 37.7; O2SAT 95
[2022-09-03 07:13] LABS: Cholesterol 113 mg/dL (200); High Density Lipoprotein 41 mg/dL; Triglycerides 78 mg/dL; Very Low Density Lipoprotein 16 mg/dL (5-40)
[2022-09-03 08:20] VITALS: O2SAT 92
[2022-09-03 08:30] VITALS: BP 127/71; PULSE 80; RESP 16; TEMP 37.2; O2SAT 93
[2022-09-03] MEDS: Aspirin 81 MG TAB.CHEW PO (08:47)
[2022-09-03] MEDS: LORazepam 0.5 MG Tablet PO (08:47)
[2022-09-03] MEDS: Glimepiride 4 MG Tablet PO (08:47)
[2022-09-03] MEDS: metFORMIN HCl 1,000 MG Tablet 1000 MG PO (08:47)
[2022-09-03] MEDS: Multivitamins,Ther W-Minerals Tablet 1 TABLET PO (08:48)
[2022-09-03] MEDS: Lisinopril 5 MG Tablet PO (10:22)
[2022-09-03] MEDS: Famotidine 20 MG Tablet PO (10:22)
[2022-09-03] MEDS: 0.9% Saline Lock 10 ML Syringe IV (10:22)
[2022-09-03] MEDS: Pantoprazole Sodium 20 MG Tablet PO (10:22)
--- NOTE | 2022-09-03 11:45 | DCINST_ITS ---
Discharge Instructions Diet Discharge Diet: 1800 Calorie Control Diet Activity Discharge Activity: Return to Normal Activity Weight Bearing Status: Full weight bearing Follow Up Care Test Results: Test results from this visit will be discussed in further detail at your follow- up appointment, if applicable. Discharge Plan Admission Admit Date/Time: 09/02/22 20:29 Primary Reason for Your Visit: TIA Attending Provider: Chauncey Guardado Primary Care Provider: Bob Bolton Consulting Providers: Devang Easley Instructions Additional Instructions / Restrictions: Start Eliquis tomorrow Discharge Orders/Prescriptions Prescriptions: New Eliquis 5 mg tablet 5 mg PO BID Qty: 60 0RF Continued lisinopril 5 mg tablet 5 mg PO DAILY famotidine 20 mg tablet 20 mg PO BID omeprazole 20 mg tablet,delayed release (DR/EC) 20 mg PO DAILY simvastatin 40 MG tablet 40 mg PO DAILY Label Comments: TAKE 1 TABLET BY MOUTH ONCE DAILY AT BEDTIME glimepiride 4 MG tablet 4 mg PO BID Label Comments: TAKE 1 TABLET BY MOUTH TWICE DAILY aspirin 81 mg tablet,chewable 1 tab PO DAILY metformin 1,000 MG tablet 1,000 mg PO BID fadcpbei-fau-PZ-lycopen-lutein 1 EACH tablet 0.5 tab PO BID tamsulosin 0.4 MG capsule 0.4 mg PO QHS Discontinued warfarin 2.5 MG tablet 3 mg PO DAILY warfarin 5 MG tablet 5 mg PO MARTA Referrals / Follow Up: Bob Bolton MD [Primary Care Provider] - See Referral Note (Call for follow up appointment) Disposition Disposition (needs filled in before D/C Order can be placed): Home, Self Care
--- NOTE | 2022-09-03 11:51 | DS.PCM_ITS ---
Providers Date of Admission: 09/02/22 Date of Discharge: 09/03/22 Primary Care Physician: Dr. Bob Bolton MD Reason For Visit: TRANSIENT ISCHEMIC ATTACK Diagnosis Discharge Diagnosis (1) History of atrial fibrillation: Status: Acute Code(s): Z86.79 - Personal history of other diseases of the circulatory system (2) History of hypertension: Status: Acute Code(s): Z86.79 - Personal history of other diseases of the circulatory system (3) CAD (coronary artery disease): Status: Chronic Code(s): I25.10 - Atherosclerotic heart disease of [place] coronary artery without angina pectoris Qualifiers: Coronary Disease-Associated Artery/Lesion type: [place] artery [place] vs. transplanted heart: [place] heart (4) TIA (transient ischemic attack): Status: Acute Code(s): G45.9 - Transient cerebral ischemic attack, unspecified Plan 1. Transient ischemic attack #2 atherosclerotic heart disease #3 type 2 diabetes #4 essential hypertension #5 cerebrovascular disease #6 paroxysmal atrial fibrillation Medications at Discharge Home Medications aspirin 81 mg chewable tablet 1 tab PO DAILY heart health 04/07/19 glimepiride 4 mg tablet 4 mg PO BID diabetes 04/07/19 metformin 1,000 mg tablet 1,000 mg PO BID diabetes 04/07/19 xjsqjaat-nuz-kklvw acid 300 mcg-lycopene 600 mcg-lutein 300 mcg tablet 0.5 tab PO BID vitamin 04/07/19 simvastatin 40 mg tablet 40 mg PO DAILY cholesterol 04/07/19 tamsulosin 0.4 mg capsule 0.4 mg PO QHS prostate 11/06/20 famotidine 20 mg tablet 20 mg PO BID 10/05/21 lisinopril 5 mg tablet 5 mg PO DAILY 10/05/21 omeprazole 20 mg tablet,delayed release 20 mg PO DAILY 10/05/21 apixaban 5 mg tablet (Eliquis) 5 mg PO BID #60 tabs 09/03/22 Hospital Course Operations None Procedures None Summary of Care Provided Minutes Spent on Discharge: 31 Hospital Course: This 77-year-old white male was seen in the emergency room at [facility] after he was brought in by family due to stroke symptoms. Patient's last known well time was 5:30 in the morning of 09/02/2022, he did drive to [place] and drove back to [place], at approximately 3:30 in the afternoon he was found to be confused and with a left-sided facial droop and he was having trouble ambulating due to balance issues. He was brought to the emergency room for evaluation. A stroke team was called, patient was out of the window for tPA and CT showed no evidence of intracranial bleed. Patient's INH score was 4, his symptoms appear to be improving during his stay in the emergency room. There was some concerns of a thrombus in the left middle cerebral artery on the patient's CT of the head,, CTA of the head and neck was performed however and there was only soft and calcific plaque seen in the posterior aspect of the proximal right internal carotid artery without evidence of high-grade stenosis, patient was placed in observation status on PCU, he underwent an MRI which showed no evidence of acute stroke. Patient was placed on 81 mg aspirin and a statin, I had a discussion with the patient concerning changing from warfarin which she had been chronically taking to Eliquis, patient consented to this and a new prescription was written for the patient for this medication. Patient was to stop his warfarin. I have discussed the use of possible Plavix in addition to his use of aspirin and Eliquis, after discussing with the patient and his family, we felt it was not a good idea to place the patient on triple therapy due to risk of bleeding. On 09/03/2022, patient was seen and examined: On examination he appeared in good health and spirits. Vital signs as documented. Skin warm and dry and without overt rashes. Neck without JVD, neck was supple, trachea midline, thyroid was normal. Lungs clear bilaterally, normal air movement was noted. Heart exam notable for regular rhythm, normal sounds and absence of murmurs, rubs or gallops. Abdomen unremarkable and without evidence of organomegaly, masses, or abdominal aortic enlargement. Bowel sounds are present, abdomen is not distended. Extremities nonedematous, no cyanosis was noted, no clubbing was noted. Neuro: Cranial nerves II through XII are grossly intact, no focal motor deficits were noted, sensation to light touch and pinprick intact, motor exam 5/5 throughout. Psych: Patient is alert and oriented x3, he does not appear anxious or depressed, he does not appear agitated. Patient was discharged home on 09/03/2022 in stable condition. Weight / BMI Weight Weight: 117.2 kg Body Mass Index (BMI) 33.1 ABG / Lab / Microbiology Data Result Diagrams: 09/02/22 18:55 09/02/22 18:55 Laboratory: Laboratory Results - last 24 hr 09/02/22 18:43: POC Glucose 171 H 09/02/22 18:55: WBC 7.6, RBC 4.25 L, Hgb 13.6, Hct 40.6, MCV 95.5 H, MCH 32.0, MCHC 33.5, RDW Std Deviation 43.3, RDW Coeff of Aditya 12.6, Plt Count 202, MPV 9.2, Immature Gran % (Auto) 0.300, Neut % (Auto) 83.0 H, Lymph % (Auto) 8.6 L, [place] % (Auto) 8.1, Eos % (Auto) 0.0, Baso % (Auto) 0.0, Absolute Neuts (auto) 6.3, Absolute Lymphs (auto) 0.65 L, Nucleated RBC % 0 09/02/22 18:55: PT 23.8 H, INR 2.2, APTT 39.4 H 09/02/22 18:55: Sodium 137, Potassium 4.4, Chloride 106, Carbon Dioxide 25.0, Anion Gap 6, BUN 34 H, Creatinine 1.30, Estim Creat Clear Calc 57.08, Est GFR (MDRD) Af Amer 69, Est GFR (MDRD) Non-Af 57 L, BUN/Creatinine Ratio 26.2 H, Glucose 175 H, Calcium 9.1, Troponin I High Sens 5 09/02/22 18:55: B-Natriuretic Peptide 40.6 09/03/22 05:32: Triglycerides 78, Cholesterol 113, LDL Cholesterol 56, VLDL Cholesterol 16, HDL Cholesterol 41 Radiography Diagnostic Testing: Radiology Impression Brain CT 09/02/22 18:48 IMPRESSION: 1. Increased density in the left middle cerebral artery possibly representing thrombus. There is some minimal decreased density seen within the left frontal temporal lobe possibly representing early ischemia. 2. Underlying senescent change with small vessel ischemia. 3. Aspects score 9. Electronically Signed: Vidal Yoo MD at 19:01 EST , ADDENDUM: 09/02/22 1912 IMPRESSION: 1. Increased density in the left middle cerebral artery possibly representing thrombus. There is some minimal decreased density seen within the left frontal temporal lobe possibly representing early ischemia. 2. Underlying senescent change with small vessel ischemia. 3. Aspects score 9. N.B. : The above Results were Read Back by Vidal Yoo MD to Devang Nguyen MD, and understanding confirmed on 09/02/2022 19:05:28 (ET). Electronically Signed: Vidal Yoo MD at 19:01 EST , Head/Neck CTA 09/02/22 18:55 IMPRESSION: 1. Soft and calcific plaque seen in the posterior aspect of the proximal right internal carotid artery which narrows the vessel approximately 50% over a 4 mm segment. There is no high-grade stenosis. 2. Very small caliber basilar artery. There is a origin posterior cerebral arteries bilaterally. 3. All cerebral vessels are patent. Electronically Signed: Vidal Yoo MD at 19:29 EST , ADDENDUM: 09/02/22 1940 IMPRESSION: 1. Soft and calcific plaque seen in the posterior aspect of the proximal right internal carotid artery which narrows the vessel approximately 50% over a 4 mm segment. There is no high-grade stenosis. 2. Very small caliber basilar artery. There is a origin posterior cerebral arteries bilaterally. 3. All cerebral vessels are patent. N.B. : The above Results were Read Back by Vidal Yoo MD to Devang Nguyen MD, and understanding confirmed on 09/02/2022 19:33:31 (ET). Electronically Signed: Vidal Yoo MD at 19:29 EST , Chest X-Ray 09/02/22 19:30 IMPRESSION: No radiographic evidence of acute cardiopulmonary disease. Electronically Signed: Vidal Yoo MD at 19:50 EST , Brain MRI 09/02/22 20:35 IMPRESSION: No evidence for acute infarct. Chronic involutional and white matter changes. Electronically Signed: Nena Clark MD at 10:18 EST , D/C Instructions Discharge Diet: 1800 Calorie Control Diet Weight Bearing Status: Full weight bearing Meaningful Use Info Meaningful Use Diagnoses (Choose all that apply): None applicable Discharge Plan Admission Admit Date/Time: 09/02/22 20:29 Primary Reason for Your Visit: TIA Attending Provider: Chauncey Guardado Primary Care Provider: Bob Bolton Consulting Providers: Devang Easley Instructions Additional Instructions / Restrictions: Start Eliquis tomorrow Discharge Orders/Prescriptions Prescriptions: New Eliquis 5 mg tablet 5 mg PO BID Qty: 60 0RF Continued lisinopril 5 mg tablet 5 mg PO DAILY famotidine 20 mg tablet 20 mg PO BID omeprazole 20 mg tablet,delayed release (DR/EC) 20 mg PO DAILY simvastatin 40 MG tablet 40 mg PO DAILY Label Comments: TAKE 1 TABLET BY MOUTH ONCE DAILY AT BEDTIME glimepiride 4 MG tablet 4 mg PO BID Label Comments: TAKE 1 TABLET BY MOUTH TWICE DAILY aspirin 81 mg tablet,chewable 1 tab PO DAILY metformin 1,000 MG tablet 1,000 mg PO BID yozihbkm-yta-HO-lycopen-lutein 1 EACH tablet 0.5 tab PO BID tamsulosin 0.4 MG capsule 0.4 mg PO QHS Discontinued warfarin 2.5 MG tablet 3 mg PO DAILY warfarin 5 MG tablet 5 mg PO MARTA Referrals / Follow Up: Bob Bolton MD [Primary Care Provider] - See Referral Note (Call for follow up appointment) Disposition Disposition (needs filled in before D/C Order can be placed): Home, Self Care Charges/Coding Visit Charges Inpatient E&M: 75922 Disch Hosp >30min
--- NOTE | 2022-09-03 12:10 | PHA.DC.MR ---
Pharmacy Service has performed discharge medication reconciliation for this patient. The patient's discharge medication list was reviewed for discrepancies and discrepancies were resolved. Home Medications aspirin 81 mg chewable tablet 1 tab PO DAILY heart health 04/07/19 glimepiride 4 mg tablet 4 mg PO BID diabetes 04/07/19 metformin 1,000 mg tablet 1,000 mg PO BID diabetes 04/07/19 tsjlbigj-mna-zrczn acid 300 mcg-lycopene 600 mcg-lutein 300 mcg tablet 0.5 tab PO BID vitamin 04/07/19 simvastatin 40 mg tablet 40 mg PO DAILY cholesterol 04/07/19 tamsulosin 0.4 mg capsule 0.4 mg PO QHS prostate 11/06/20 famotidine 20 mg tablet 20 mg PO BID 10/05/21 lisinopril 5 mg tablet 5 mg PO DAILY 10/05/21 omeprazole 20 mg tablet,delayed release 20 mg PO DAILY 10/05/21 apixaban 5 mg tablet (Eliquis) 5 mg PO BID #60 tabs 09/03/22
[2022-09-03 15:37] VITALS: BP 123/95; PULSE 76; RESP 16; TEMP 36.7; O2SAT 97
[2022-09-03 16:45] VITALS: BP 121/93; PULSE 71; RESP 18; TEMP 36.7; O2SAT 98
== END 2022-09-03 17:02 | disposition home or self-care (01) ==
LOC: ED 19:52 → PCU 20:25
PROVIDERS: Admitting Provider Family Medicine; Emergency Provider Emergency Medicine; PCP Family Medicine; Visit Provider Internal Medicine
DX: G45.9 Transient cerebral ischemic attack, unspecified (principal); I48.0 Paroxysmal atrial fibrillation; E11.9 Type 2 diabetes mellitus without complications; Z79.84 Long term (current) use of oral hypoglycemic drugs; I25.10 Atherosclerotic heart disease of native coronary artery without angina pectoris; Z87.891 Personal history of nicotine dependence; E78.5 Hyperlipidemia, unspecified; Z79.82 Long term (current) use of aspirin; I10 Essential (primary) hypertension; Z79.01 Long term (current) use of anticoagulants; Z79.899 Other long term (current) drug therapy; R29.810 Facial weakness; R41.0 Disorientation, unspecified; R29.704 NIHSS score 4; R27.0 Ataxia, unspecified; R47.1 Dysarthria and anarthria; Z86.718 Personal history of other venous thrombosis and embolism
CPT/HCPCS: 36415; 70450; 70496; 70498; 70551; 71045; 80048; 80061; 82962; 83880; 84484; 85025; 85610; 85730; 93005; 94762; 97161; 97165; 97802; 99221; 99285; Q9967; A4216; G0378

== ENCOUNTER 2022-11-25 08:48 | Inpatient (IN) | payer MEDICARE, OTHER, SELFPAY ==
[2022-11-21 07:35] LABS: Hematocrit 40.6 % (40-54); Hemoglobin 13.7 g/dL (13.0-16.5); Mean Corp Hgb Conc 33.7 g/dL (32-36); Mean Corpuscular Hgb 32.3 pg (27.0-32.0); Mean Corpuscular Volume 95.8 fL (80-94); Mean Platelet Vol. 9.2 fl (6.2-12.0); Platelet Count 216 K/mm3 (150-450); RBC Distribution Width CV 12.4 % (11.6-14.6); RBC Distribution Width SD 43.7 fl (35.1-43.9); Red Blood Count 4.24 M/mm3 (4.6-6.2); White Blood Count 5.8 K/mm3 (4.4-11.0)
[2022-11-21 08:00] LABS: Anion Gap 7 (5-15); BUN 25 mg/dL (7-18); BUN/Creat Ratio 18.2 RATIO (10-20); Calcium,Total 9.3 mg/dL (8.5-10.1); Chloride 105 mmol/L (98-107); Creatinine, Serum 1.37 mg/dL (0.70-1.30); EST Glomerular Filtration Rate 54 mL/min (>60); Est Glom Filt Rate - Afr Amer 65 mL/min (>60); Glucose 168 mg/dL (74-106); Potassium 4.5 mmol/L (3.5-5.1); Sodium Level 140 mmol/L (136-145)
[2022-11-21 09:32] LABS: Hemoglobin A1c 6.6 % (3.8-5.6)
[2022-11-25] VITALS (17 sets, daily range): BP systolic 84–146; BP diastolic 38–91; PULSE 46–59; RESP 11–18; TEMP 35.9–36.7; O2SAT 94–100; BMI 34.2
--- NOTE | 2022-11-25 | PLAQ_PTH ---
PATIENT: STACEY AKERS LOC: ICU U#:[id number] AGE/SX: 77/M ROOM: [place] [address] RE11/25/[address]: Dr. Dung Garces MD : 1945 BED: 1 DIS: 11/26/2022 SPEC #: [id number] RECD: 11/25/22 15:38 STATUS: LAN REQ #: [id number] OLIVER: 11/25/22 00:[address]: Dung Garces DEPT: SURGICAL PATHOLOGY RECD BY: Hector Hua ENTERED: 11/26/22 11:50 SP TYPE: PLAQUE OTHR DR: MD Dr. Bob Armendariz MD Tissues: PLAQUE Procedures: Decalcification bone/plaque Surgery Specimen Level III HEADER OPERATION: Carotid endarterectomy PRE-OP DIAGNOSIS: Stenosis of right carotid artery TISSUE SUBMITTED: Right carotid plaque MICROSCOPIC DIAGNOSIS Right carotid plaque, endarterectomy: Calcified atheromatous plaque consistent with severe stenosis. AM:mike 11/29/2022 GROSS DESCRIPTION Received in fixative is one container labeled with the patient's name and designated right carotid plaque. The specimen consists of multiple irregular and gritty fragments of yellow soft tissue that in aggregate measure 4.0 x 1.2 x 1.0 cm. Auto Damage Adjuster sections are submitted in one cassette after decalcification. / AM:mike 11/26/2022 TC:5 CPT: 52983, 02568
[2022-11-25] MEDS: Lactated Ringers 1,000 ML 15 ML IV (09:28)
[2022-11-25] MEDS: 0.9% Normal Saline 1,000 ML 1 ML IV (09:29)
[2022-11-25 09:56] LABS: Bedside Glucose 175 mg/dL (74-106)
--- NOTE | 2022-11-25 11:11 | PCM.HP.BLA ---
History and Physical Allergies No Known Allergies Allergy (Verified 11/05/22 14:59) Medications aspirin 81 mg chewable tablet 1 tab PO DAILY heart health 04/07/19 [History Confirmed 11/05/22] glimepiride 4 mg tablet 4 mg PO BID diabetes 04/07/19 [History Confirmed 11/05/22] metformin 1,000 mg tablet 1,000 mg PO BID diabetes 04/07/19 [History Confirmed 11/05/22] aaaefjwe-pvx-sotdj acid 300 mcg-lycopene 600 mcg-lutein 300 mcg tablet 0.5 tab PO BID vitamin 04/07/19 [History Confirmed 11/05/22] simvastatin 40 mg tablet 40 mg PO DAILY cholesterol 04/07/19 [History Confirmed 11/05/22] tamsulosin 0.4 mg capsule 0.4 mg PO QHS prostate 11/06/20 [History Confirmed 11/05/22] famotidine 20 mg tablet 20 mg PO BID 10/05/21 [History Confirmed 11/05/22] lisinopril 5 mg tablet 5 mg PO DAILY 10/05/21 [History Confirmed 11/05/22] omeprazole 20 mg tablet,delayed release 20 mg PO DAILY 10/05/21 [History Confirmed 11/05/22] apixaban 5 mg tablet (Eliquis) 5 mg PO BID #60 tabs 09/03/22 [Rx Confirmed 11/05/22] PFSH Medical History? Atherosclerotic heart disease of [place] coronary artery without angina pectoris Atrial flutter with rapid ventricular response Samayoa's palsy CAD (coronary artery disease) Chest pain Diabetes mellitus, type II Essential hypertension History of atrial fibrillation History of DVT (deep vein thrombosis) History of hypertension History of left heart catheterization (LHC) (~11/08/20) Hyperlipidemia Low back pain Obesity (BMI 30.0-34.9) TIA (transient ischemic attack) Surgical History? H/O umbilical hernia repair History of back surgery History of carpal tunnel release of both wrists History of radiofrequency ablation procedure for cardiac arrhythmia (~05/17/21) Total knee replacement status Family History? Mother Arthritis Breast cancer HypertensionFather Hypertension Social History? Smoking Status:? Former smoker quit date: 07/21/1968 pack-years: 1 alcohol intake:? current alcohol intake frequency: a few times a month Alcohol type: beer substance use type:? does not use HPI HPI HPI: STACEY AKERS, is a 77 M who presents to the office today for evaluation of carotid artery stenosis. He was referred by his PCP Dr. Abdullahi. In August 2022, patient presented to the [facility] ER with symptoms concerning for stroke including left-sided facial drooping and confusion. 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 These symptoms did resolve fairly quickly. He was admitted for work-up. CT Head and MRI Brain did not reveal any evidence of stroke. CTA Head and Neck revealed what was interpreted has mild carotid artery stenosis. Patient was anticoagulated with coumadin at this time for his history of DVT and was taking ASA and simvastatin. At that time, patient was switched to Eliquis. 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 He denies any prior history of CVA/TIA and has had no issues since August. He has not smoked for over 30 years. He denies CP, SOB, palpitations, syncope/dizziness/lightheadedness, N/V, F/C, blood in the stool or urine, epistaxis. ROS General General: No weight change, appetite, fatigue, colon cancer, breast cancer or weakness HEENT HEENT: No difficulty swallowing, eye injury, eye surgery, swollen glands or hoarseness Endo Endocrine: Yes diabetes mellitus; No thyroid disease, thyroid cancer, Hair loss, heat intolerance or cold intolerance Skin Skin: No rash or changing moles Musc Musculoskeletal: No back problems, arthritis, rheumatoid arthritis, gout or joint pain Cardio Cardiovascular: No murmur, pacemaker, heart disease, atrial fibrillation, high blood pressure, heart attack, heart stent, palpitations, shortness of breat with exertion or chest pain Psych Psychiatric: No depression, anxiety or hearing voices Resp Respiratory: No shortness of breath, No sleep apnea, No cough, No COPD, No asthma, No emphysema and No wheezing Gastro Gastrointestinal: No abdominal pain, No nausea or vomiting, No diarrhea, No constipation, No blood in stool, No acid reflux, No hemorrhoids, No ulcers, No gallbladder problem and No black,tarry stools Delfino Hematologic: Yes blood thinners, No blood disorders, No bleeding, No anemia and Yes blood clots Neuro Neurologic: No system reviewed and no additional complaints, except as documented, No as per HPI, No abnormal gait, No abnormal hearing, No abnormal movements, No abnormal speech, No behavioral changes, No burning sensations, No confusion, No convulsions, No disequilibrium, No dizziness, No localized weakness, No frequent falls, No headache(s), No lack of coordination, No loss of vision, No memory loss, Yes numbness, No other visual disturbances, No radicular pain, No restless legs, No sensory deficit, No syncope, Yes tingling, No tremor(s), No weakness and No other Exam Const General: cooperative, healthy appearing, comfortable and no acute distress Orientation: alert, awake and oriented x3 [facility] Head: normal to inspection, normocephalic and atraumatic Ears: hearing grossly normal bilaterally and external ears normal Nose: external nose normal Eyes General: appearance normal, both eyes and all related structures EOM: EOM intact bilaterally Neck Neck: normal visual inspection and trachea midline Resp Effort & Inspection: normal respiratory effort, able to speak in complete sentences, symmetric chest movement, no audible wheezes, not labored, no respiratory distress, no retractions, no stridor and no use of accessory muscles Auscultation: clear to auscultation bilaterally Cardio Rate: regular rate Rhythm: regular rhythm Bruits: no carotid bruits Pulses: brachial pulses present and radial pulses present Skin General: no ecchymosis, no erythema, no mottling, no petechiae, no purpura and no pallor Trauma: no lacerations or abrasions Wounds: no wounds Neuro General: patient alert, patient awake, patient oriented x3, gait normal, moves all extremities, no focal motor deficits and CN's II-XI intact bilaterally Cognition: normal cognition Speech: speech normal Sensory Exam: no sensory deficits noted Psych Appearance: grossly normal Mental Status: mental status grossly normal Speech and Movement: speech and movement normal Attitude: cooperative Judgment: judgment good Coding Level of Care Code Off vis,new,level 3 Diagnoses Stenosis of right carotid artery? I65.21 Assessment and Plan Assessment and Plan (1) Stenosis of right carotid artery: ?Status:?Acute ?Plan: -right CEA
[2022-11-25] MEDS: Heparin Injection (Vial) 5,000 UNIT/ML VIAL 5000 UNIT (11:37)
[2022-11-25] MEDS: Cefazolin 2 GM in 0.9% Normal Saline 100 ML IV (11:37)
[2022-11-25] MEDS: Protamine Sulfate 50 MG/5 ML Vial IV (14:30)
--- NOTE | 2022-11-25 14:52 | OP.PCM_ITS ---
Report of Operation Date of Procedure: 11/25/22 Pre-Operative Diagnosis: right carotid stenosis Post-Operative Diagnosis: same Surgery/Procedure Performed:: right carotid endarterectomy Surgeon: Dung Garces Type of Anesthesia: General Drains: 19 Fr SHERRILL Estimated Blood Loss (mL): 20 Description of Procedure: HPI: Patient is a 77-year-old male who suffered transient right hemispheric ischemic symptoms and had a CT scan which revealed approximately 68% stenosis and MRI revealed no infarct. He presents now for endarterectomy for stroke risk reduction. Description of procedure: Upon obtaining informed consent and verification correct patient procedure site the patient was taken the operating where he was placed under general anesthesia. He was then positioned prepped and draped in usual sterile fashion a time was performed. Oblique incision was made along the anterior border the sternocleidomastoid and Bovie electrocautery was dissect down through subcutaneous tissue. The platysma was divided and self-retaining retractors put into position. Further dissection was then carried down to the sternocleidomastoid which was retracted laterally exposing the jugular vein. Sharp dissection was then used to dissect free the jugular vein along the anterior border and the facial vein was then ligated with silk ties and divided. The jugular vein was then retracted laterally exposing the carotid vessels. Sharp dissection used to dissect free the proximal common carotid artery with care taken to identify protect the vagus nerve. A right angle used to place a vessel loop around the proximal common carotid artery and attention was then turned to the internal carotid artery. Sharp dissection used to dissect free the internal carotid artery with care taken to identify and protect the vagus nerve and the hypoglossal nerve. The patient had a very high bifurcation and extensive length of plaque which may dissection difficult however we are able to get beyond the area of plaque and a right angle used to place a vessel loop. The patient was heparinized allowed to circulate for 3 minutes during which time the external carotid artery was dissected free and a right angle used to place a vessel loop. The vessels were then clamped first the internal followed by the common and external. Longitudinal arteriotomy was created with 11 blade on the common carotid artery extending Cruz scissors onto the internal carotid artery beyond the area of plaque. 14 Bulgarian [place] shunt was then placed first distally into the internal carotid artery allowed to backbleed and placed proximally in the common carotid artery. The shunt was interrogated with Doppler and found a patent low resistance signal. A freer elevator was then used to perform an endarterectomy with satisfactory endpoint distally onto the internal carotid artery and eversion endarterectomy of the external carotid artery. Heparinized saline was then used to flush the lumen of debris in the distal endpoint was tacked with 7-0 Prolene interrupted sutures. A bovine pericardial patch was brought on the field and secured in position using a 6-0 Prolene in a running fashion. Prior to completing suture line the shunt was removed and the vessel backbled. After completing the suture line the internal carotid was allowed to backbleed into the bifurcation then reoccluded as origin. The clamps were then removed from the external and common carotid arteries allowing 10 heartbeats of antegrade flow to flush into the external before reestablishing antegrade flow in the internal carotid artery. After clamps removed satisfactory stasis was noted and the vessel interrogated Doppler. The internal carotid was patent with lows in signal and the external carotid was patent with appropriate signal. The patient was then reversed with protamine and the incision inspected for hemostasis. A 19 Bulgarian channel SHERRILL was placed via separate stab incision and the incision was then closed with 2-0 Vicryl, 3-0 Vicryl, 4 Monocryl and Dermabond for the skin. At the inclusion the case patient weakness seizure moving all extremities command and he was then taken to the intensive care unit for close hemodynamic and neurologic monitoring.
[2022-11-25] MEDS: Bupivacaine 0.25% 30 ML Vial (14:55)
[2022-11-25] MEDS: 0.9% Saline Lock 10 ML Syringe IV (16:06)
[2022-11-25] MEDS: Ondansetron 4 MG/2 ML Vial IV (16:06)
[2022-11-25] MEDS: 0.45% Normal Saline 1,000 ML 100 ML IV (16:11)
[2022-11-25 16:35] LABS: Bedside Glucose 149 mg/dL (74-106)
[2022-11-25 16:47] LABS: ACT Activated Clotting Time 89 sec (74-137)
[2022-11-25 16:48] LABS: ACT Activated Clotting Time 221 sec (74-137)
[2022-11-25 16:48] LABS: ACT Activated Clotting Time 275 sec (74-137)
[2022-11-25] MEDS: metFORMIN HCl 1,000 MG Tablet 1000 MG PO (17:36)
[2022-11-25] MEDS: Cefazolin 1 GM/50 ML BAG IV (21:01)
[2022-11-25] MEDS: Atorvastatin Calcium 20 MG Tablet PO (21:06)
[2022-11-25] MEDS: Tamsulosin HCl 0.4 MG Capsule PO (21:06)
[2022-11-25] MEDS: Acetaminophen 500 MG Tablet 1000 MG PO (21:06)
[2022-11-25 21:35] LABS: Bedside Glucose 138 mg/dL (74-106)
[2022-11-26] VITALS (15 sets, daily range): BP systolic 80–124; BP diastolic 37–79; PULSE 47–58; RESP 11–17; TEMP 36.6; O2SAT 91–99; BMI 35.0
[2022-11-26] MEDS: 0.45% Normal Saline 1,000 ML 100 ML IV (02:38)
[2022-11-26 03:50] LABS: Absolute Neutrophil Count 3.8 X10^3/uL (2.0-7.7); Basophil# 0.01 X10^3/uL; Basophil% 0.2 % (0-1); Eosinophil# 0.04 X10^3/uL; Eosinophils% 0.7 % (0-5); Hematocrit 27.3 % (40-54); Hemoglobin 9.1 g/dL (13.0-16.5); Lymphocyte % 21.5 % (19-41); Mean Corp Hgb Conc 33.3 g/dL (32-36); Mean Corpuscular Hgb 32.9 pg (27.0-32.0); Mean Corpuscular Volume 98.6 fL (80-94); Mean Platelet Vol. 9.1 fl (6.2-12.0); Monocyte# 0.57 X10^3/uL; Monocyte% 10.2 % (0-10); NRBC Flagged by Analyzer 0 % (0-5); Neutrophil # 3.75 X10^3/uL (2.7-7.7); Neutrophil % 67.2 % (47-70); Platelet Count 134 K/mm3 (150-450); RBC Distribution Width CV 12.4 % (11.6-14.6); RBC Distribution Width SD 44.9 fl (35.1-43.9); Red Blood Count 2.77 M/mm3 (4.6-6.2); White Blood Count 5.6 K/mm3 (4.4-11.0)
[2022-11-26 04:06] LABS: Bedside Glucose 101 mg/dL (74-106)
[2022-11-26] MEDS: Cefazolin 1 GM/50 ML BAG IV (06:09)
[2022-11-26] MEDS: Acetaminophen 500 MG Tablet 1000 MG PO (06:09)
[2022-11-26 06:40] LABS: Bedside Glucose 116 mg/dL (74-106)
[2022-11-26] MEDS: Enoxaparin 40 MG/0.4 ML Syringe SC (08:56)
[2022-11-26] MEDS: Glimepiride 4 MG Tablet PO (08:57)
[2022-11-26] MEDS: Aspirin 81 MG TAB.CHEW PO (08:57)
[2022-11-26] MEDS: metFORMIN HCl 1,000 MG Tablet 1000 MG PO (08:57)
[2022-11-26] MEDS: Lisinopril 5 MG Tablet PO (08:57)
[2022-11-26] MEDS: Pantoprazole Sodium 20 MG Tablet PO (08:57)
--- NOTE | 2022-11-26 09:20 | CASEMGMT ---
RN?CM?AR MANAGER?CM?to room to meet with patient for initial transition planning/care coordination?assessment.?RN?CM?introduced self and role at [facility].? Pt voices understanding and consents to?assessment?at this time.? Pt sitting up in chair in no distress at this time.? Pt is A/O at this time and answers all questions appropriately.?? Care providers, pharmacy, and demographics verified/updated at this time. PCP: Dr Bolton Specialists: Dr Garces-vascular, [facility]/cardiology Preferred Pharmacy:[facility] Retail Insurance: [employer], AARP Prescription Benefit:?yes Living Will/HPOA:?Pt does not currently have LW/HCPOA and declines info at this time.? LNOK: sonLonny. Dtr, Lyndsey Living Arrangements: Lives alone in one-story home w/no steps to enter. Independent. Transportation:?Pt states drives self and states no transportation concerns at this time.? DME: ? Denies using any DME and denies needs.? HHC/SNF: No hx of either. No needs identified. Pt wishes to return home and states has no concerns with going home at time of discharge.?CM?to follow for any discharge planning/needs.? Pt voices no concerns/needs at this time.? Advised pt to ask for?CM?if any questions/concerns/needs arise.? Voices understanding. PLAN:??Home Nancy ALVAREZN?RN?CM
--- NOTE | 2022-11-26 11:34 | PCM.PN.SRG ---
Subjective Subjective Patient is doing well this morning. He was up to chair without issue. His voiding, some urinary hesitancy (present at baseline) and some burning with urination. He is tolerating diet. His pain is well controlled. No LOPEZ, new or worsening facial droop/dysarthria/focal motor weakness/sensory deficit, CP, SOB. His BPs have been low, he says this is normal for him at baseline. He denies any lightheadedness or dizziness. Objective Data Objective Data A&Ox3, NAD RRR Nonlabored respirations R CEA incision site C/D/I, SHERRILL drain in place with minimal output, no significant swelling/bruising/erythema CN's II-XII intact bilaterally Vital Signs: Vital Signs Temp Pulse Resp BP Pulse Ox O2 Del Method 97.8 F 52 L 12 100/40 L 91 Room Air 11/26/22 00:00 11/26/22 07:00 11/26/22 07:00 11/26/22 07:00 11/26/22 07:00 11/26/22 07:00 Oxygen Delivery Method Room Air Weight: 272 lb 14.916 oz Body Mass Index (BMI) 35.0 Intake & Output: Intake and Output for Last 24 Hours 11/24/22 11/25/22 11/26/22 23:59 23:59 23:59 Intake Total 576.13 / 596.13 1695 / 1695 Output Total 370 / 520 230 / 230 Balance 206.13 / 76.13 1465 / 1465 Lab / Micro Data Result Diagrams: 11/26/22 03:43 11/21/22 07:08 Labs: Laboratory Results - last 24 hr 11/25/22 12:20: Activated Clotting Time 89 11/25/22 13:15: Activated Clotting Time 275 H 11/25/22 13:57: Activated Clotting Time 221 H 11/25/22 16:11: POC Glucose 149 H 11/25/22 21:04: POC Glucose 138 H 11/26/22 03:39: POC Glucose 101 11/26/22 03:43: WBC 5.6, RBC 2.77 L, Hgb 9.1 L, Hct 27.3 L, MCV 98.6 H, MCH 32.9 H, MCHC 33.3, RDW Std Deviation 44.9 H, RDW Coeff of Aditya 12.4, Plt Count 134 L, MPV 9.1, Immature Gran % (Auto) 0.200, Neut % (Auto) 67.2, Lymph % (Auto) 21.5, Gibson % (Auto) 10.2 H, Eos % (Auto) 0.7, Baso % (Auto) 0.2, Absolute Neuts (auto) 3.8, Absolute Lymphs (auto) 1.20, Nucleated RBC % 0 11/26/22 06:07: POC Glucose 116 H Assessment & Plan Assessment/Plan (1) Stenosis of right carotid artery: PLAN: Patient is POD#1 R CEA. SHERRILL drain was removed without issue. Incision site with surgical glue intact, no significant swelling, bruising, or erythema. Okay to remove arterial line. He will ambulate with nursing, ensure no orthostatic symptoms. Likely hold home lisinopril at d/c for a few days and have him monitor bp's at home. Burning with urination likely secondary to kuhn from surgery. Anticipate discharge this afternoon.
[2022-11-26 12:31] LABS: Bedside Glucose 166 mg/dL (74-106)
--- NOTE | 2022-11-26 13:05 | PCM.DC.SUM ---
Providers Date of Admission: 11/25/22 Date of Discharge: 11/26/22 Primary Care Physician: Dr. Bob Bolton MD Reason For Visit: RT CAROTID ENDARTERECTOMY Diagnosis Discharge Diagnosis (1) Stenosis of right carotid artery: Status: Acute Code(s): I65.21 - Occlusion and stenosis of right carotid artery Plan: Patient is POD#1 R CEA. SHERRILL drain was removed without issue. Incision site with surgical glue intact, no significant swelling, bruising, or erythema. Okay to remove arterial line. He will ambulate with nursing, ensure no orthostatic symptoms. Likely hold home lisinopril at d/c for a few days and have him monitor bp's at home. Burning with urination likely secondary to kuhn from surgery. Anticipate discharge this afternoon. Medications at Discharge Home Medications aspirin 81 mg chewable tablet 1 tab PO DAILY heart health 04/07/19 glimepiride 4 mg tablet 4 mg PO BID diabetes 04/07/19 metformin 1,000 mg tablet 1,000 mg PO BID diabetes 04/07/19 yjvzeput-lqi-rqgwl acid 300 mcg-lycopene 600 mcg-lutein 300 mcg tablet 1 tab PO DAILY vitamin 04/07/19 simvastatin 40 mg tablet 40 mg PO QHS cholesterol 04/07/19 tamsulosin 0.4 mg capsule 0.4 mg PO QHS prostate 11/06/20 famotidine 20 mg tablet 20 mg PO BID GERD 10/05/21 lisinopril 5 mg tablet 5 mg PO DAILY BP 10/05/21 omeprazole 20 mg tablet,delayed release 20 mg PO DAILY GERD 10/05/21 apixaban 5 mg tablet (Eliquis) 5 mg PO BID BLOOD THINNER 11/18/22 oxycodone 5 mg tablet 5 mg PO Q8H PRN PRN Pain Score 4-10 3 days #9 tabs 11/26/22 Hospital Course Operations - (Right Carotid Endarterectomy) Summary of Care Provided Hospital Course: Patient had R CEA on 11/25/22. The procedure was without significant complication and the patient tolerated it well. He was routinely admitted to the ICU for hemodynamic and neurologic monitoring post-operatively. A SHERRILL drain was placed during the procedure to reduce risk of hematoma and was removed without issue on POD#1. He has remained neurologically stable. He was hypotensive following surgery but this has improved and his BP have been stable overnight and today. He has been ambulating without any orthostatic symptoms or difficulty. He is voiding well, with baseline hesitancy. He is tolerating full diet without issue. His pain is well controlled. He is medically stable for discharge with outpatient follow-up as scheduled with our office. Weight / BMI Weight Weight: 272 lb 14.916 oz Body Mass Index (BMI) 35.0 ABG / Lab / Microbiology Data Result Diagrams: 11/26/22 03:43 11/21/22 07:08 Laboratory: Laboratory Results - last 24 hr 11/25/22 12:20: Activated Clotting Time 89 11/25/22 13:15: Activated Clotting Time 275 H 11/25/22 13:57: Activated Clotting Time 221 H 11/25/22 16:11: POC Glucose 149 H 11/25/22 21:04: POC Glucose 138 H 11/26/22 03:39: POC Glucose 101 11/26/22 03:43: WBC 5.6, RBC 2.77 L, Hgb 9.1 L, Hct 27.3 L, MCV 98.6 H, MCH 32.9 H, MCHC 33.3, RDW Std Deviation 44.9 H, RDW Coeff of Aditya 12.4, Plt Count 134 L, MPV 9.1, Immature Gran % (Auto) 0.200, Neut % (Auto) 67.2, Lymph % (Auto) 21.5, Humphreys % (Auto) 10.2 H, Eos % (Auto) 0.7, Baso % (Auto) 0.2, Absolute Neuts (auto) 3.8, Absolute Lymphs (auto) 1.20, Nucleated RBC % 0 11/26/22 06:07: POC Glucose 116 H 11/26/22 11:53: POC Glucose 166 H D/C Instructions Discharge Diet: No restrictions May shower in (days): 1 Weight Bearing Status: Weight bearing as tolerated Lifting Restricted to (Lbs): 20 Lifting Restrictions: Do not lift greater than 20 pounds for 3 weeks Call your doctor if your incision/area has: Sudden Increased Bleeding, Increased Pain/ Swelling and Foul Smelling Discharge Call your doctor if you observe: Fever of 101 or Higher and Uncontrolled pain Remove Dressing in: 1 day Additional Dressing/Incision Instructions: You may remove the small bandage that is overlying the site of the drain that was removed. If you still notice some drainage, you can re-cover with a band-aid at home. If there is no drainage, you do not need to keep it covered. The rest of the incision is covered with surgical glue. This will peel off on its own over the next few weeks. Do not pick at it or try to peel it off on your own. Additional Instructions: You may shower tomorrow. It is okay for soap and water to run over the incision, the surgical glue protects it. Do not submerge the incision in water/take a bath for [address] you feel you can move your neck/head well enough to check your blind spots. Do not drive if you are taking the prescription pain medication (oxycodone). Take the oxycodone only as needed. Do not take it with any other prescription pain medication. You may take tylenol with the oxycodone as needed. You may restart your Eliquis tomorrow. Please hold your lisinopril dose tonight. Please check your BP at home morning and evening or if you have a headache/are light-headed. If it is still low (<120 systolic/top number), continue to hold the lisinopril. If it is running lower or higher than usual, or you have any questions or concerns please call our office to discuss ([phone]). Please Follow Up With: Dung Garces MD When: 12/10/22 Meaningful Use Info Meaningful Use Diagnoses (Choose all that apply): None applicable Discharge Plan Admission Admit Date/Time: 11/25/22 08:48 Primary Reason for Your Visit: R carotid endarterectomy Attending Provider: Dung Garces Primary Care Provider: Bob Bolton Consulting Providers: Tremayne Lara Discharge Orders/Prescriptions Prescriptions: New oxycodone 5 mg Tablet 5 mg PO Q8H PRN PRN (Reason: Pain Score 4-10) 3 Days Qty: 9 0RF Continued famotidine 20 mg tablet 20 mg PO BID omeprazole 20 mg tablet,delayed release (DR/EC) 20 mg PO DAILY simvastatin 40 MG tablet 40 mg PO QHS Label Comments: TAKE 1 TABLET BY MOUTH ONCE DAILY AT BEDTIME glimepiride 4 MG tablet 4 mg PO BID Label Comments: TAKE 1 TABLET BY MOUTH TWICE DAILY aspirin 81 mg tablet,chewable 1 tab PO DAILY metformin 1,000 MG tablet 1,000 mg PO BID ljuncqyl-qab-JO-lycopen-lutein 1 EACH tablet 1 tab PO DAILY tamsulosin 0.4 MG capsule 0.4 mg PO QHS Held lisinopril 5 mg tablet 5 mg PO DAILY Hold Instructions: Resume on 11/27/22. Please hold your evening dose of lisinopril today. Check your BP, if it continues to be low tomorrow morning then hold your morning dose and call the office for further instruction. Eliquis 5 mg tablet 5 mg PO BID Hold Instructions: Resume on 11/27/22. Re-start your Eliquis tomorrow (11/27/22) morning then take as usual. Referrals / Follow Up: Bob Bolton MD [Primary Care Provider] - Disposition Disposition (needs filled in before D/C Order can be placed): Home, Self Care
== END 2022-11-26 14:15 | disposition home or self-care (01) | DRG 39 ==
LOC: ACINP 08:48 → ICU 16:51
PROVIDERS: Anesthesiology; Admitting Provider Surgery Trauma Surgery; PCP Family Medicine; Referring Provider Surgery Trauma Surgery; Visit Provider Surgery Trauma Surgery
PROC: 03CK0ZZ Extirpation of Matter from Right Internal Carotid Artery, Open Approach (ICD-10-PCS; CPT 35301; principal; 2022-11-25 10:40)
DX: I65.21 Occlusion and stenosis of right carotid artery (principal); E11.9 Type 2 diabetes mellitus without complications; I48.0 Paroxysmal atrial fibrillation; G51.0 Bell's palsy; I25.10 Atherosclerotic heart disease of native coronary artery without angina pectoris; K21.9 Gastro-esophageal reflux disease without esophagitis; Z87.891 Personal history of nicotine dependence; Z79.84 Long term (current) use of oral hypoglycemic drugs; Z86.718 Personal history of other venous thrombosis and embolism; Z86.73 Personal history of transient ischemic attack (TIA), and cerebral infarction without residual deficits
CPT/HCPCS: 36415; 80048; 82962; 83036; 85025; 85027; 85347; 86850; 86900; 86901; 88304; 88311; 94668; 94762; 97802; 99252; A4648; J7030; J7120; A4216; G0463; J2405

== ENCOUNTER → 2023-06-11 | Outpatient (CLI) | payer MEDICARE, OTHER, SELFPAY ==
--- NOTE | 2023-06-11 07:54 | CDU_ITS ---
Reason For Study: Carotid stenosis Rt. Velocities/BP Lt. Velocities/BP Prox CCA 79.6/12.6 cm/sec. Prox CCA 91.6/19 cm/sec. Mid CCA 91.6/15.7 cm/sec. Mid CCA 80.6/16.8 cm/sec. Dist CCA 70.7/10.2 cm/sec. Dist CCA 68.5/12.4 cm/sec. Prox ICA 33.9/6.8 cm/sec. Prox ICA 52/13.5 cm/sec. Mid ICA 78/22.3 cm/sec. Mid ICA 86.1/25.6 cm/sec. Dist ICA 74.3/17.6 cm/sec. Dist ICA 91.6/28.9 cm/sec. Rt. ICA/CCA = 0.98. Lt. ICA/CCA = 1.14. Prox ECA 124.7/6 cm/sec. Prox ECA 118.2/7.7 cm/sec. Rt. Vert. 55.4 cm/sec. Lt. Vert. 44.8/9.9 cm/sec. Right Extracranial There is homogeneous, smooth atherosclerotic plaque noted in the right common carotid artery. There is intimal thickening but no significant atherosclerotic plaque noted in the right internal carotid artery. There is homogeneous, smooth atherosclerotic plaque noted in the right external carotid artery. Antegrade flow is noted in the right vertebral artery. Left Extracranial There is homogeneous, smooth atherosclerotic plaque noted in the left common carotid artery. There is heterogeneous, irregular atherosclerotic plaque noted in the left internal carotid artery. There is heterogeneous, irregular atherosclerotic plaque noted in the left external carotid artery. Antegrade flow is noted in the left vertebral artery. Procedure Carotid Duplex 11096. This is a Carotid Duplex examination using B-mode, color flow and specral Doppler. Exam performed in department. VL/Carotid Duplex Ultrasound Interpretation Summary Normal right extracranial internal carotid. Mild (<50%) stenosis left extracranial internal carotid. Patent and antegrade vertebrals bilaterally. Ordering Physician: Dung Garces Referring Physician: Lolly Abdullahi Performed By: Lilly Alvarez, T
== END | disposition home or self-care (01) ==
LOC: CVS 07:54
PROVIDERS: PCP Family Medicine; Referring Provider Surgery Trauma Surgery; Visit Provider Surgery Trauma Surgery
DX: I65.21 Occlusion and stenosis of right carotid artery (principal)
CPT/HCPCS: 93880

== ENCOUNTER → 2023-09-11 | Outpatient (CLI) | payer MEDICARE, OTHER, SELFPAY ==
[2023-09-11 12:32] LABS: Absolute Lymphocyte Count 1.14 X10^3/uL (0.83-4.51); Absolute Neutrophil Count 2.9 X10^3/uL (2.0-7.7); Basophil# 0.01 X10^3/uL; Basophil% 0.2 % (0-1); Eosinophil# 0.04 X10^3/uL; Eosinophils% 0.9 % (0-5); Hematocrit 40.8 % (40-54); Hemoglobin 13.5 g/dL (13.0-16.5); Lymphocyte # 1.14 X10^3/ul (0.83-4.51); Lymphocyte % 24.7 % (19-41); Mean Corp Hgb Conc 33.1 g/dL (32-36); Mean Corpuscular Hgb 31.8 pg (27.0-32.0); Mean Corpuscular Volume 96.2 fL (80-94); Mean Platelet Vol. 9.8 fl (6.2-12.0); Monocyte# 0.47 X10^3/uL; Monocyte% 10.2 % (0-10); NRBC Flagged by Analyzer 0 % (0-5); Neutrophil # 2.93 X10^3/uL (2.7-7.7); Neutrophil % 63.6 % (47-70); Platelet Count 230 K/mm3 (150-450); RBC Distribution Width CV 12.5 % (11.6-14.6); RBC Distribution Width SD 43.3 fl (35.1-43.9); Red Blood Count 4.24 M/mm3 (4.6-6.2); White Blood Count 4.6 K/mm3 (4.4-11.0)
[2023-09-11 13:29] LABS: ALB/GLOB Ratio 1.1 RATIO (0.9-2.4); AST(SGOT) 17 U/L (15-37); Alanine Aminotransfer ALT/SGPT 33 U/L (16-61); Alkaline Phosphatase 67 U/L (45-117); Anion Gap 6 (5-15); BUN 24 mg/dL (7-18); BUN/Creat Ratio 19.2 RATIO (10-20); Calcium,Total 9.6 mg/dL (8.5-10.1); Chloride 106 mmol/L (98-107); Cholesterol 132 mg/dL (200); Creatinine, Serum 1.25 mg/dL (0.70-1.30); EST Glomerular Filtration Rate 60 mL/min (>60); Est Glom Filt Rate - Afr Amer 72 mL/min (>60); Globulin 3.6 g/dL (2.2-4.2); Glucose 156 mg/dL (74-106); High Density Lipoprotein 39 mg/dL; PSA,Total- Diagnostic 1.23 ng/mL (0.0-4.0); Potassium 4.1 mmol/L (3.5-5.1); Protein, Total 7.6 g/dL (6.4-8.2); Sodium Level 138 mmol/L (136-145); Triglycerides 94 mg/dL; Very Low Density Lipoprotein 19 mg/dL (5-40)
[2023-09-11 14:48] LABS: Microalbumin:Creatinine Ratio 142.4 mg/g CRE (<30 mg/g CRE)
== END | disposition home or self-care (01) ==
LOC: BIMLAB 09:45
PROVIDERS: PCP Internal Medicine; Visit Provider Internal Medicine
DX: I25.10 Atherosclerotic heart disease of native coronary artery without angina pectoris (principal); E11.9 Type 2 diabetes mellitus without complications; N40.0 Benign prostatic hyperplasia without lower urinary tract symptoms; I10 Essential (primary) hypertension
CPT/HCPCS: 36415; 80053; 80061; 82043; 82570; 84153; 85025

== ENCOUNTER → 2023-11-27 | Outpatient (CLI) | payer MEDICARE, OTHER, SELFPAY ==
--- NOTE | 2023-11-27 07:52 | CDU_ITS ---
Reason For Study: HX Rt CEA Rt. Velocities/BP Lt. Velocities/BP Prox CCA 86.4/19.3 cm/sec. Prox CCA 89.7/20.4 cm/sec. Mid CCA 94.1/19.3 cm/sec. Mid CCA 75.4/16.0 cm/sec. Dist CCA 85.3/16.0 cm/sec. Dist CCA 80.9/22.6 cm/sec. Prox ICA 63.2/11.2 cm/sec. Prox ICA 67.7/20.4 cm/sec. Mid ICA 83.4/27.7 cm/sec. Mid ICA 67.7/23.0 cm/sec. Dist ICA 80.6/22.0 cm/sec. Dist ICA 78.7/27.0 cm/sec. Rt. ICA/CCA = 0.9. Lt. ICA/CCA = 1.0. Prox ECA 82.8/7.2 cm/sec. Prox ECA 93.5/6.8 cm/sec. Rt. Vert. 35.8/6.2 cm/sec. Lt. Vert. 74.3/14.9 cm/sec. Right Extracranial There is heterogeneous, irregular atherosclerotic plaque noted in the right common carotid artery. There is homogeneous, smooth atherosclerotic plaque noted in the right common carotid artery. There is heterogeneous, smooth atherosclerotic plaque noted in the right internal carotid artery. HX CEA. The right external carotid artery is not well visualized. Antegrade flow is noted in the right vertebral artery. Left Extracranial There is heterogeneous, smooth atherosclerotic plaque noted in the left common carotid artery. There is heterogeneous, irregular atherosclerotic plaque noted in the left internal carotid artery. There is heterogeneous, irregular atherosclerotic plaque noted in the left external carotid artery. Antegrade flow is noted in the left vertebral artery. Procedure Carotid Duplex 89125. This is a Carotid Duplex examination using B-mode, color flow and specral Doppler. The exam was diagnostic. Exam performed in department. VL/Carotid Duplex Ultrasound Interpretation Summary Mild (<50%) stenosis right extracranial internal carotid. Mild (<50%) stenosis left extracranial internal carotid. Patent and antegrade vertebrals bilaterally. Ordering Physician: Augustina Castelan Referring Physician: N/A Performed By: Aniket Adamson RVT
== END | disposition home or self-care (01) ==
LOC: CVS 07:51
PROVIDERS: Referring Provider Physician Assistant; Visit Provider Physician Assistant
DX: I65.21 Occlusion and stenosis of right carotid artery (principal); Z48.812 Encounter for surgical aftercare following surgery on the circulatory system
CPT/HCPCS: 93880

== ENCOUNTER → 2024-03-10 | Outpatient (CLI) | payer MEDICARE, OTHER, SELFPAY ==
[2024-03-10 12:20] LABS: Absolute Lymphocyte Count 1.18 X10^3/uL (0.83-4.51); Absolute Neutrophil Count 2.8 X10^3/uL (2.0-7.7); Basophil# 0.01 X10^3/uL; Basophil% 0.2 % (0-1); Eosinophil# 0.04 X10^3/uL; Eosinophils% 0.9 % (0-5); Hematocrit 40.3 % (40-54); Hemoglobin 13.3 g/dL (13.0-16.5); Lymphocyte # 1.18 X10^3/ul (0.83-4.51); Lymphocyte % 26.8 % (19-41); Mean Corpuscular Hgb 31.6 pg (27.0-32.0); Mean Corpuscular Volume 95.7 fL (80-94); Monocyte# 0.39 X10^3/uL; Monocyte% 8.9 % (0-10); NRBC Flagged by Analyzer 0 % (0-5); Neutrophil # 2.76 X10^3/uL (2.7-7.7); Neutrophil % 62.7 % (47-70); Platelet Count 204 K/mm3 (150-450); RBC Distribution Width CV 11.9 % (11.6-14.6); RBC Distribution Width SD 41.2 fl (35.1-43.9); Red Blood Count 4.21 M/mm3 (4.6-6.2); White Blood Count 4.4 K/mm3 (4.4-11.0)
[2024-03-10 12:56] LABS: ALB/GLOB Ratio 1.1 RATIO (0.9-2.4); AST(SGOT) 15 U/L (15-37); Alanine Aminotransfer ALT/SGPT 27 U/L (16-61); Albumin, Serum 3.9 g/dL (3.2-5.0); Alkaline Phosphatase 72 U/L (45-117); Anion Gap 5 (5-15); BUN 27 mg/dL (7-18); BUN/Creat Ratio 22.3 RATIO (10-20); Calcium,Total 9.9 mg/dL (8.5-10.1); Chloride 101 mmol/L (98-107); Cholesterol 145 mg/dL (200); Creatinine, Serum 1.21 mg/dL (0.70-1.30); EST Glomerular Filtration Rate 62 mL/min (>60); Est Glom Filt Rate - Afr Amer 75 mL/min (>60); Globulin 3.6 g/dL (2.2-4.2); Glucose 309 mg/dL (74-106); High Density Lipoprotein 43 mg/dL; Potassium 4.6 mmol/L (3.5-5.1); Protein, Total 7.5 g/dL (6.4-8.2); Sodium Level 134 mmol/L (136-145); Triglycerides 121 mg/dL; Very Low Density Lipoprotein 24 mg/dL (5-40)
== END | disposition home or self-care (01) ==
LOC: BIMLAB 08:36
PROVIDERS: PCP Internal Medicine; Referring Provider Physician Assistant; Visit Provider Physician Assistant
DX: I10 Essential (primary) hypertension (principal); E78.5 Hyperlipidemia, unspecified
CPT/HCPCS: 36415; 80053; 80061; 85025

== ENCOUNTER → 2024-08-23 | Outpatient (CLI) | payer MEDICARE, OTHER, SELFPAY ==
[2024-08-23 10:52] LABS: Anion Gap 6 (5-15); BUN 28 mg/dL (7-18); BUN/Creat Ratio 25.2 RATIO (10-20); Chloride 107 mmol/L (98-107); Creatinine, Serum 1.11 mg/dL (0.70-1.30); EST Glomerular Filtration Rate 68 mL/min (>60); Est Glom Filt Rate - Afr Amer 83 mL/min (>60); Glucose 207 mg/dL (74-106); Potassium 3.9 mmol/L (3.5-5.1); Sodium Level 139 mmol/L (136-145)
== END | disposition home or self-care (01) ==
LOC: LAB 08:19
PROVIDERS: PCP Internal Medicine; Referring Provider Internal Medicine Cardiovascular Disease; Visit Provider Internal Medicine Cardiovascular Disease
DX: I10 Essential (primary) hypertension (principal)
CPT/HCPCS: 36415; 80048

== ENCOUNTER → 2024-09-02 | Outpatient (CLI) | payer MEDICARE, OTHER, SELFPAY ==
--- NOTE | 2024-09-02 07:52 | ECHOCS_ITS ---
Reason For Study Reason For Study: CAD/ASHD Procedure This was a 2D Doppler, Color Flow transthoracic echocardiogram. The study was technically difficult. Contrast injection was performed. Exam performed in department. Left Ventricle Normal LV size. Mild concentric left ventricular hypertrophy. The left ventricular ejection fraction is 70 %. Stage 1 diastolic dysfunction. Right Ventricle Normal right ventricle. Atria The left atrium is mildly enlarged. Normal right atrium. Mitral Valve Trivial mitral valve insufficiency. Tricuspid Valve Trivial tricuspid valve insufficiency. Unable to estimate RV systolic pressure due to insufficient tricuspid regurgitant envelope. Aortic Valve Trisinus/trileaflet aortic valve. Pulmonic Valve The pulmonic valve is not well visualized. Trivial pulmonic valve insufficiency. Great Vessels Normal-sized aortic root. Pericardium/Pleural No pericardial effusion. Medication 22 gauge I.V. with prn adaptor inserted into right arm. Diluted definity 1ml given slow IV push to enhance endocardial definition. MMode/2D Measurements & Calculations LVIDd: 4.9 cm IVSd: 1.1 cm Ao root diam: 3.6 cm LVIDs: 3.0 cm LVPWd: 1.3 cm LA dimension: 4.5 cm RVDd: 4.8 cm FS: 39.7 % LAV(MOD-bp): 96.6 ml LVAd ap4: 40.0 cm2 SV(MOD-sp4): 89.6 ml LAV(MOD-bp) Indexed: 40.0 ml/m2 LVLd ap4: 9.4 cm SI(MOD-sp4): 37.1 ml/m2 LAV(MOD-sp2): 108.4 ml EDV(MOD-sp4): 138.4 ml LAV(MOD-sp4): 87.8 ml EDV(sp4-el): 145.3 ml LVAs ap4: 21.1 cm2 LVLs ap4: 7.5 cm ESV(MOD-sp4): 48.8 ml ESV(sp4-el): 50.1 ml EF(MOD-sp4): 64.7 % EF(sp4-el): 65.5 % SV(sp4-el): 95.2 ml LA A4 area: 26.1 cm2 LA dimension(2D): 4.5 cm RA A4 area: 20.9 cm2 TAPSE: 2.9 cm Time Measurements MV dec time: 0.26 sec Doppler Measurements & Calculations MV E max juan: 74.8 cm/sec Lat Peak E' Juan: 8.7 cm/sec Med Peak E' Juan: 7.9 cm/sec MV A max juan: 89.5 cm/sec E/E' lat: 8.6 E/E' med: 9.5 MV E/A: 0.84 MV V2 max: 109.7 cm/sec MV P1/2t max juan: 88.3 cm/sec Ao V2 max: 156.3 cm/sec MV max P.8 mmHg MV P1/2t: 85.0 msec Ao max P.8 mmHg MV V2 mean: 56.1 cm/sec MV dec slope: 304.3 cm/sec2 Ao V2 mean: 102.3 cm/sec MV mean P.5 mmHg MVA(P1/2t): 2.6 cm2 Ao mean P.9 mmHg MV V2 VTI: 34.5 cm Ao V2 VTI: 35.2 cm AV (velocity ratio): 0.71 LV V1 max: 103.5 cm/sec LV V1 max P.3 mmHg LV V1 mean P.3 mmHg LV V1 mean: 71.0 cm/sec LV V1 VTI: 24.9 cm ECHO/Echo Complete W/ Contrast Interpretation Summary Mild concentric left ventricular hypertrophy. The left ventricular ejection fraction is 70 %. Stage 1 diastolic dysfunction. The left atrium is mildly enlarged. Ordering Physician: Drake Mejia Referring Physician: Vandana Fletcher Performed By: Philippe Rogers RCS
== END | disposition home or self-care (01) ==
LOC: CVS 07:52
PROVIDERS: PCP Internal Medicine; Referring Provider Internal Medicine Cardiovascular Disease; Visit Provider Internal Medicine Cardiovascular Disease
DX: I25.10 Atherosclerotic heart disease of native coronary artery without angina pectoris (principal); I11.9 Hypertensive heart disease without heart failure; I25.2 Old myocardial infarction; I47.10 Supraventricular tachycardia, unspecified
CPT/HCPCS: 93306; Q9957; A4216; C8929

== ENCOUNTER → 2024-12-23 | Outpatient (CLI) | payer MEDICARE, OTHER, SELFPAY ==
--- NOTE | 2024-12-23 09:46 | CDU_ITS ---
Reason For Study Reason For Study: S/P right CEA Rt. Velocities/BP Lt. Velocities/BP Prox CCA 91.6/13.5 cm/sec. Prox CCA 91/19.2 cm/sec. Mid CCA 103.6/13.5 cm/sec. Mid CCA 84.4/18.2 cm/sec. Dist CCA 83.9/10.2 cm/sec. Dist CCA 71.1/13.5 cm/sec. Prox ICA 45.4/8 cm/sec. Prox ICA 51.3/12.6 cm/sec. Mid ICA 83.9/22.3 cm/sec. Mid ICA 81.5/24.8 cm/sec. Dist ICA 76.2/21.2 cm/sec. Dist ICA 66.4/22 cm/sec. Rt. ICA/CCA = 0.81. Lt. ICA/CCA = 0.97. Prox ECA 110.2/4.7 cm/sec. Prox ECA 133.9/9.7 cm/sec. Rt. Vert. 52.2 cm/sec. Lt. Vert. 50.9/10.7 cm/sec. Right Extracranial There is heterogeneous, irregular atherosclerotic plaque noted in the right common carotid artery. There is homogeneous, smooth atherosclerotic plaque noted in the right internal carotid artery. There is heterogeneous, irregular atherosclerotic plaque noted in the right external carotid artery. Antegrade flow is noted in the right vertebral artery. Left Extracranial There is heterogeneous, smooth atherosclerotic plaque noted in the left common carotid artery. There is heterogeneous, irregular atherosclerotic plaque noted in the left internal carotid artery. There is heterogeneous, irregular atherosclerotic plaque noted in the left external carotid artery. Antegrade flow is noted in the left vertebral artery. Procedure Carotid Duplex 11825. This is a Carotid Duplex examination using B-mode, color flow and specral Doppler. Exam performed in department. VL/Carotid Duplex Ultrasound Interpretation Summary Mild (<50%) stenosis right extracranial internal carotid. Mild (<50%) stenosis left extracranial internal carotid. Patent and antegrade vertebrals bilaterally. Ordering Physician: Augustina Castelan Referring Physician: Vandana Fletcher Performed By: Lilly Alvarez RVT
== END | disposition home or self-care (01) ==
LOC: CVS 09:45
PROVIDERS: PCP Internal Medicine; Referring Provider Physician Assistant; Visit Provider Physician Assistant
DX: I65.21 Occlusion and stenosis of right carotid artery (principal)
CPT/HCPCS: 93880

== ENCOUNTER → 2025-04-19 | Outpatient (CLI) | payer MEDICARE, OTHER, SELFPAY ==
[2025-04-19 15:37] LABS: Hematocrit 35.1 % (40-54); Hemoglobin 11.7 g/dL (13.0-16.5); Immature Granulocytes Count 0.020 X10^3/uL (0.0-0.0); Mean Corp Hgb Conc 33.3 g/dL (32-36); Mean Corpuscular Volume 95.9 fL (80-94); Mean Platelet Vol. 9.6 fl (6.2-12.0); NRBC Flagged by Analyzer 0 % (0-5); Platelet Count 191 K/mm3 (150-450); RBC Distribution Width CV 12.7 % (11.6-14.6); RBC Distribution Width SD 44.5 fl (35.1-43.9); Red Blood Count 3.66 M/mm3 (4.6-6.2); White Blood Count 4.5 K/mm3 (4.4-11.0)
[2025-04-19 16:13] LABS: Creatinine, Urine (random) 51.20 mg/dL (39.00-259.00); Microalbumin,Random Urine 104.0 mg/L (<20 mg/L)
[2025-04-19 16:54] LABS: AST(SGOT) 22 U/L (<=37); Alanine Aminotransfer ALT/SGPT 19 U/L (<=46); Albumin, Serum 4.3 g/dL (3.4-4.8); Alkaline Phosphatase 65 U/L (40-129); Anion Gap 12 (5-15); BUN 24 mg/dL (4-19); BUN/Creat Ratio 20.6 RATIO (10-20); Calcium,Total 9.5 mg/dL (7.6-11.0); Carbon Dioxide 23.3 mmol/L (21.0-32.0); Chloride 103 mmol/L (98-108); Cholesterol 131 mg/dL (<=200); Globulin 2.7 g/dL (2.2-4.2); Glucose 171 mg/dL (70-99); Low Density Lipoprotein Calc. 78 mg/dL; Potassium 4.5 mmol/L (3.3-5.1); Triglycerides 75 mg/dL; Very Low Density Lipoprotein 15 mg/dL (5-40); cholesterol:hdl ratio screen 3.41
== END | disposition home or self-care (01) ==
LOC: MFPLAB 09:44
PROVIDERS: PCP Internal Medicine; Referring Provider Internal Medicine; Visit Provider Internal Medicine
DX: E11.42 Type 2 diabetes mellitus with diabetic polyneuropathy (principal); I10 Essential (primary) hypertension; I25.10 Atherosclerotic heart disease of native coronary artery without angina pectoris
CPT/HCPCS: 36415; 80053; 80061; 82043; 82570; 85025